=== PATIENT | female | born 1935 | race Caucasian/White ===

== ENCOUNTER 2017-07-26 00:30 | Inpatient (IN) | payer MEDICARE, MEDICAID ==
[2017-07-26 01:36] LABS: #Eosinphils 0.1 thou/uL (0.0-0.7); #Monocytes 0.9 thou/uL (0.11-0.59); #Neutrophils 13.9 thou/uL (1.40-6.50); %Basophils 0.1 % (0.0-1.0); %Eosinophils 0.4 % (0.0-10.0); %Lymphocytes 6.4 % (21.0-51.0); %Monocytes 5.7 % (0.0-10.0); %Neutrophils 87.5 % (42.0-75.0); Hemoglobin 8.4 g/dL (12.0-16.0); Mean Corpuscular HGB CONC 30.1 g/dL (32.0-36.0); Mean Corpuscular Hemoglobin 26.8 pg (27.0-31.0); Mean Corpuscular Volume 89.3 fl (81.0-99.0); Mean Platelet Volume 6.5 fL (7.4-10.4); Platelet Count 398 thou/uL (130-400); RBC Distribution Width 14.4 % (11.5-14.5); Red Blood Cell (RBC) Count 3.13 mill/uL (4.20-5.40); White Blood Cell (WBC) Count 15.9 thou/uL (4.8-10.8)
[2017-07-26 01:53] LABS: ALT (SGPT) 10 U/L (8-55); AST (SGOT) 14 U/L (5-34); Alkaline Phosphatase 69 U/L (40-150); Anion Gap 13 mmol/L (10-20); BUN (Urea Nitrogen) 18 mg/dL (9.8-20.1); Bilirubin, Total Less than 0.2 mg/dL (0.2-1.2); Calc. Creatinine Clearance 0 mL/min (70-130); Calcium 8.6 mg/dL (7.8-10.44); Carbon Dioxide 29 mmol/L (23-31); Chloride 103 mmol/L (98-107); Estimated GFR-MDRD 67; Globulin 3.3 g/dL (2.4-3.5); Glucose 130 mg/dL (83-110); Potassium 4.2 mmol/L (3.5-5.1); Protein, Total 6.3 g/dL (6.0-8.3); Sodium 141 mmol/L (136-145)
[2017-07-26] MEDS ORDERED: Bisacodyl 5 MG TAB PO PRN (03:49)
[2017-07-26] MEDS ORDERED: cefTRIAXone\\ROCEPHIN 1 GM in Sodium Chloride 0.9% 100 ML IVPB SCH (04:00)
[2017-07-26] MEDS ORDERED: cefTRIAXone\\ROCEPHIN 1 GM, Syringe 0.4 ML in Sterile Water 9.6 ML SLOW IVP SCH (04:00)
--- NOTE | 2017-07-26 05:01 | HP ---
PRIMARY CARE PHYSICIAN: Dr. Mariah Reyes. CHIEF COMPLAINT: Cough. HISTORY OF PRESENT ILLNESS: Ms. Douglas is a pleasant 81-year-old lady who was seen at [facility] on 07/26/2017 following transfer from emergency room at [place]. She is a resident of [facility]. She reports that 2 days ago, she started having c ough. She reports that the cough is productive of sputum. She does not recall the color of sputum. She denies any chest pain or shortness of breath. She is unsure if she had any fevers. She denies any urinary symptoms. She denies any nausea, vomiting, or diarrhea. She was assessed in the emergency room at [place] and diagnosed with possible aspiration as well as urinary tract infection. She was subsequently transferred to this emergency room. REVIEW OF SYSTEMS: The following complete review of systems was negative, unless otherwise mentioned in the HPI or below: Constitutional: Weight loss or gain, sense of well-being, ability to conduct usual activities, exerc ise tolerance. Skin/Breast: Rash, itching, changes in hair growth or loss, nail changes, breast lumps, tenderness, swelling, nipple discharge. Eyes: Vision, double vision, tearing, blind spots, pain. ENT/Mouth: Headaches (location, time of onset, duration, precipitating factors), vertigo, lightheade dness, injury. Vision, double vision, tearing, blind spots, pain, nose bleeding, colds, obstruction, discharge, dental difficulties, gingival bleeding, dentures, neck stiffness, pain, tenderness, masses in thyroid or other areas. Cardiovascular: Precordial pain, substernal distress, palpitations, syncope, dyspnea on exertion, or thopnea, nocturnal paroxysmal dyspnea, edema, cyanosis, hypertension, heart murmurs, varicosities, ph lebitis, claudication. Respiratory: Pain, shortness of breath, wheezing, stridor, cough, hemoptysis, fever or night sweats. Gastrointestinal: Poor appetite, dysphagia, indigestion, abdominal pain, heartburn, eructation, naus ea, vomiting, hematemesis, jaundice, constipation, or diarrhea, abnormal stools (noah-colored, tarry, bloody, greasy, foul smelling), flatulence, hemorrhoids, recent changes in bowel habits. Genitourinary: Urgency, frequency, dysuria, nocturia, hematuria, polyuria, oliguria, unusual (or melany nge in) color of urine, stones, hesitancy, change in size of stream, dribbling, acute retention or in continence, libido, potency. Musculoskeletal: Pain, swelling, redness or heat of muscles or joints, limitation, of motion, muscul ar weakness, atrophy, cramps. Neurologic/Psychiatric: Convulsions, paralyzes, tremor, incoordination, paresthesias, difficulties w ith memory of speech, sensory or motor disturbances, or muscular coordination (ataxia, tremor), emoti onal problems, anxiety, depression, previous psychiatric care, unusual perceptions, hallucinations. Allergy/Immunologic: Skin rash, anemia, bleeding tendency, polydipsia, polyuria, intolerance to heat or cold. PAST MEDICAL HISTORY: Significant for gastroesophageal reflux disease, dyslipidemia, hypertension, u rinary tract infection, probable rheumatoid arthritis. PAST SURGICAL HISTORY: Significant for cataract surgery and hysterectomy. SOCIAL HISTORY: She denies tobacco use, alcohol use, or recreational drug use. She lives in a [facility] home. CODE STATUS: I discussed her code status. She is FULL CODE. She tells her that her sister is the s ubstitute decision maker. ALLERGIES: AMLODIPINE, CEPHALEXIN, HYDROCHLOROTHIAZIDE, IBUPROFEN, LANSOPRAZOLE, MACRODANTIN, SULFA, SULINDAC, and TRIMETHOPRIM. CURRENT MEDICATIONS: These need to be clarified. FAMILY HISTORY: Significant for heart attack in her mother. PHYSICAL EXAMINATION: GENERAL: Ms. Douglas is awake and alert, not in acute distress. VITAL SIGNS: Blood pressure is 165/87, pulse is 82. She is breathing at rate of 19 and saturating 9 7% on 2 liters of oxygen. She is afebrile. EYES: No scleral icterus. No conjunctival pallor. ENT: Moist mucosal membranes, no oropharyngeal erythema or exudates. NECK: Supple, nontender, normal range of movement, trachea is midline. RESPIRATORY: Accessory muscles of breathing are not active. Chest wall movements are symmetric bila terally. She has right basal crackles. CARDIOVASCULAR: S1 and S2 are heard, regular. LUNGS: Peripheral pulses palpable. No carotid bruit, no pericardial rub. ABDOMEN: Soft, nontender, bowel sounds heard, no hepatomegaly, no splenomegaly. NEUROLOGIC: Cranial nerves II-XII are intact. Deep tendon reflexes 2+. MUSCULOSKELETAL: Marked arthritic changes in both hands, patient is unable to open her left hand. SKIN: No rashes or subcutaneous nodules. LYMPHATIC: No cervical lymphadenopathy. PSYCHIATRIC: Normal mood, normal affect, patient is oriented to person, but not to place or time. LABORATORY DATA: Ms. Douglas's labs and investigations were reviewed. I reviewed her electrocardiog luz, which has a lot of artifact, but appears to show normal sinus rhythm, no ST changes to suggest a n acute coronary syndrome. I also reviewed her chest x-ray, which does not show any pulmonary infilt rates. She has a small right-sided pleural effusion. Laboratory investigation show leukocytosis wit h 15,900 white cells, of which 87.5% are neutrophils, normocytic anemia with hemoglobin of 8.4, annie l platelet count, normal electrolytes, normal creatinine, unremarkable liver profile except for decre ased albumin of 3.0. Urinalysis was positive for ketones, nitrite, small amount of leukocyte esteras e, and bacteria. ASSESSMENT AND PLAN: Ms. Douglas is a pleasant 81-year-old lady who was seen at [facility] on 07/26/2017. Her problem list includes: 1. Acute hypoxic respiratory failure: She had oxygen saturation of 88% on room air at [facility] likely etiology of acute hypoxic respiratory failure is aspiration. 2. Aspiration: Suspected. She will be started on ceftriaxone and metronidazole. It is possible th at her radiographic changes are not yet apparent. We will request Speech Therapy consult for swallow evaluation. 3. Urinary tract infection: Start ceftriaxone, follow urine cultures. 4. Hypertension: Monitor vital signs, titrate antihypertensives as needed. 5. Gastroesophageal reflux disease: Resume home medications once clarified. Many thanks for allowing me to participate in your patient's care. Please feel free to contact me wi th any questions or concerns. LEVEL OF RISK: High. LEVEL OF COMPLEXITY: High.
[2017-07-26] MEDS ORDERED: Acetaminophen 325 MG Suppository ONE (05:25)
[2017-07-26] MEDS ORDERED: Acetaminophen 325 MG TAB ONE (05:25)
[2017-07-26] MEDS ORDERED: Melatonin 3 MG TAB PO SCH (05:45)
--- NOTE | 2017-07-26 09:58 | PDOC.EVN ---
Event Note - Event Note Event Note: pt seen and evaluated cont current care f/u dr abel rec's
[2017-07-26] MEDS ORDERED: hydrALAZINE 20 MG/ML VIAL ONE (12:47)
[2017-07-26] MEDS: metroNIDAZOLE 500 MG in Premix Bag 1 BAG IVPB SCH ×3 (15:20→20:57)
[2017-07-27 05:14] LABS: #Lymphocytes 0.5 thou/uL (1.20-3.40); #Monocytes 0.1 thou/uL (0.11-0.59); #Neutrophils 7.4 thou/uL (1.40-6.50); %Eosinophils 0.4 % (0.0-10.0); %Lymphocytes 5.7 % (21.0-51.0); %Monocytes 0.9 % (0.0-10.0); Hemoglobin 8.9 g/dL (12.0-16.0); Mean Corpuscular HGB CONC 30.3 g/dL (32.0-36.0); Mean Corpuscular Volume 88.9 fl (81.0-99.0); Mean Platelet Volume 6.4 fL (7.4-10.4); Platelet Count 375 thou/uL (130-400); RBC Distribution Width 14.5 % (11.5-14.5); Red Blood Cell (RBC) Count 3.28 mill/uL (4.20-5.40)
[2017-07-27] MEDS: metroNIDAZOLE 500 MG in Premix Bag 1 BAG IVPB SCH ×3 (05:27→22:26)
[2017-07-27 05:32] LABS: Anion Gap 15 mmol/L (10-20); BUN (Urea Nitrogen) 12 mg/dL (9.8-20.1); Calc. Creatinine Clearance 0 mL/min (70-130); Calcium 8.5 mg/dL (7.8-10.44); Carbon Dioxide 22 mmol/L (23-31); Chloride 102 mmol/L (98-107); Estimated GFR-MDRD 89; Glucose 112 mg/dL (83-110); Potassium 3.7 mmol/L (3.5-5.1); Sodium 135 mmol/L (136-145)
--- NOTE | 2017-07-27 11:19 | RAD ---
AP VIEW CHEST: Date: 07/27/17 HISTORY: Shortness of breath. FINDINGS: Comparison made to previous exam from 07/25/17. AP view of chest demonstrates calcification of the aorta. No evidence of effusions, pneumonia, or pne umothorax seen. No acute intrathoracic abnormality is noted. Bilateral shoulder osteoarthritic change is seen. IMPRESSION: No evidence of acute intrathoracic abnormality seen. POS: [facility]
--- NOTE | 2017-07-27 13:26 | PDOC.PN ---
- Subjective Encounter Start Date: 07/27/17 Encounter Start Time: 13:23 alert but not oriented sob better dysphagia no n/v no f/c - Objective Resuscitation Status: Resuscitation Status FULL:Full Resuscitation MAR Reviewed: Yes Vital Signs & Weight: Vital Signs (12 hours) Temp Pulse Resp BP Pulse Ox 07/27/17 08:00 97.9 F 88 16 147/63 H 92 L I&O: 07/26/17 07/27/17 07/28/17 06:59 06:59 06:59 Intake Total 200 Balance 200 Result Diagrams: 07/27/17 04:16 07/27/17 04:16 Phys Exam - Physical Examination Constitutional: NAD HEENT: PERRLA Neck: no JVD Respiratory: no wheezing Cardiovascular: no significant murmur Gastrointestinal: non-tender Musculoskeletal: pulses present Neurological: moves all 4 limbs Psychiatric: A&O x 3 Dx/Plan (1) Acute respiratory failure with hypoxia Code(s): J96.01 - ACUTE RESPIRATORY FAILURE WITH HYPOXIA Status: Acute (2) Dysphagia Code(s): R13.10 - DYSPHAGIA, UNSPECIFIED Status: Acute (3) Aspiration pneumonitis Code(s): J69.0 - PNEUMONITIS DUE TO INHALATION OF FOOD AND VOMIT Status: Acute (4) HTN (hypertension) Code(s): I10 - ESSENTIAL (PRIMARY) HYPERTENSION Status: Acute (5) Dementia Code(s): F03.90 - UNSPECIFIED DEMENTIA WITHOUT BEHAVIORAL DISTURBANCE Status: Acute (6) GERD (gastroesophageal reflux disease) Code(s): K21.9 - GASTRO-ESOPHAGEAL REFLUX DISEASE WITHOUT ESOPHAGITIS Status: Acute (7) UTI (urinary tract infection) Status: Acute - Plan * mbs in am * npo for now * cont current meds * f/u urine cul
[2017-07-27] MEDS: cefTRIAXone\\ROCEPHIN 1 GM, Syringe 0.4 ML in Sterile Water 9.6 ML SLOW IVP SCH ×2 (15:19→16:00)
[2017-07-27] MEDS: Sodium Chloride 0.9% 1,000 ML IV SCH ×2 (22:26→22:28)
[2017-07-28] MEDS: metroNIDAZOLE 500 MG in Premix Bag 1 BAG IVPB SCH ×3 (05:19→21:00)
[2017-07-28 05:21] LABS: #Monocytes 0.8 thou/uL (0.11-0.59); #Neutrophils 7.6 thou/uL (1.40-6.50); %Basophils 0.1 % (0.0-1.0); %Eosinophils 0.3 % (0.0-10.0); %Lymphocytes 10.9 % (21.0-51.0); %Monocytes 8.6 % (0.0-10.0); %Neutrophils 80.1 % (42.0-75.0); Hemoglobin 8.4 g/dL (12.0-16.0); Mean Corpuscular HGB CONC 30.6 g/dL (32.0-36.0); Mean Corpuscular Hemoglobin 27.3 pg (27.0-31.0); Mean Corpuscular Volume 89.4 fl (81.0-99.0); Mean Platelet Volume 6.6 fL (7.4-10.4); Platelet Count 351 thou/uL (130-400); RBC Distribution Width 14.7 % (11.5-14.5); Red Blood Cell (RBC) Count 3.07 mill/uL (4.20-5.40); White Blood Cell (WBC) Count 9.5 thou/uL (4.8-10.8)
[2017-07-28 05:40] LABS: Anion Gap 12 mmol/L (10-20); BUN (Urea Nitrogen) 18 mg/dL (9.8-20.1); Calc. Creatinine Clearance 0 mL/min (70-130); Calcium 8.4 mg/dL (7.8-10.44); Carbon Dioxide 23 mmol/L (23-31); Chloride 105 mmol/L (98-107); Estimated GFR-MDRD 87; Glucose 70 mg/dL (83-110); Potassium 3.7 mmol/L (3.5-5.1); Sodium 136 mmol/L (136-145)
[2017-07-28] MEDS: Labetalol HCl 100 MG/20 ML VIAL SLOW IVP PRN (12:07)
[2017-07-28] MEDS: hydrALAZINE 20 MG/ML VIAL SLOW IVP PRN (13:58)
--- NOTE | 2017-07-28 16:33 | PDOC.PN ---
- Subjective Encounter Start Date: 07/28/17 Encounter Start Time: 16:32 sob better more oriented no n/v no f/c - Objective Resuscitation Status: Resuscitation Status FULL:Full Resuscitation MAR Reviewed: Yes Vital Signs & Weight: Vital Signs (12 hours) Temp Pulse Resp BP BP Pulse Ox 07/28/17 13:58 72 197/74 H 07/28/17 12:07 83 202/86 H 07/28/17 11:32 98 F 83 18 209/83 H 96 07/28/17 08:00 97.9 F 88 18 97 07/28/17 07:37 97.9 F 88 18 177/76 H 97 I&O: 07/27/17 07/28/17 07/29/17 06:59 06:59 06:59 Intake Total 200 Balance 200 Result Diagrams: 07/28/17 04:21 07/28/17 04:21 Additional Labs: Accuchecks 07/27/17 19:23 POC Glucose 94 Phys Exam - Physical Examination Constitutional: NAD HEENT: PERRLA Neck: no JVD Respiratory: no wheezing Cardiovascular: no significant murmur Gastrointestinal: non-tender Musculoskeletal: pulses present Neurological: normal sensation Psychiatric: A&O x 3 Dx/Plan (1) Acute respiratory failure with hypoxia Code(s): J96.01 - ACUTE RESPIRATORY FAILURE WITH HYPOXIA Status: Acute (2) Dysphagia Code(s): R13.10 - DYSPHAGIA, UNSPECIFIED Status: Acute (3) Aspiration pneumonitis Code(s): J69.0 - PNEUMONITIS DUE TO INHALATION OF FOOD AND VOMIT Status: Acute (4) HTN (hypertension) Code(s): I10 - ESSENTIAL (PRIMARY) HYPERTENSION Status: Acute (5) Dementia Code(s): F03.90 - UNSPECIFIED DEMENTIA WITHOUT BEHAVIORAL DISTURBANCE Status: Acute (6) GERD (gastroesophageal reflux disease) Code(s): K21.9 - GASTRO-ESOPHAGEAL REFLUX DISEASE WITHOUT ESOPHAGITIS Status: Acute (7) UTI (urinary tract infection) Status: Acute - Plan * f/u mbs * f/u palliative care rec's * continue current mx
[2017-07-28] MEDS: Acetaminophen 325 MG TAB PO PRN (20:45)
[2017-07-28] MEDS: Lisinopril 20 MG TAB PO SCH (20:45)
[2017-07-28] MEDS: Atorvastatin Calcium 20 MG TAB PO SCH (20:46)
[2017-07-28] MEDS: Carvedilol 25 MG TAB PO SCH (20:46)
[2017-07-29] MEDS: Labetalol HCl 100 MG/20 ML VIAL SLOW IVP PRN (01:52)
--- NOTE | 2017-07-29 03:18 | CON ---
DATE OF CONSULTATION: 07/28/2017 Sue Douglas is an 81-year-old female who was admitted with a diagnosis of pneumonia. She asked me why she was still here. She said she just had a cough and she wanted to eat, but was no t allowed to eat. That is the only history she would give me. She seemed quite frustrated. She was transferred here from [facility] for "possible aspiration". She denies shortness of breath at this time. She denies coughing at this time. She denies purulent sputum, orthopnea, paroxysmal nocturnal dyspnea. PAST MEDICAL HISTORY: 1. Remarkable for reflux 2. Lipid disorder. 3. Hypertension. 4. Rheumatoid arthritis based on her exam. 5. History of cataract surgery. 6. Status post hysterectomy. SOCIAL HISTORY: She is a nonsmoker, nondrinker. She does not use drugs. She lives in a alf. FAMILY HISTORY: Her sister is her only family. ALLERGIES: She reports allergies in the computer to NORVASC, CEPHALOSPORINS, HYDROCHLOROTHIAZIDE, IB UPROFEN, LANSOPRAZOLE, MACRODANTIN, SULFA AND SULDENDAC. MEDICATIONS: Medications have been reviewed. REVIEW OF SYSTEMS: Ten points otherwise negative. PHYSICAL EXAMINATION: VITAL SIGNS: Blood pressures have been between 175/80 and 209/83 today. Heart rate in the 70s-80s, respiratory rate in the teens, oximetry is 95%. HEENT: Pupils are equal. Sclerae is anicteric. NECK: Supple. LUNGS: Lungs were clear when I evaluated her earlier today. HEART: Regular rhythm. She has a grade 2/6 aortic outflow murmur. ABDOMEN: Soft and nontender. EXTREMITIES: Without asymmetry. She has some very severe upper extremity rheumatoid deformities. LABORATORY: White count 9.5, hemoglobin 8.4, platelets 351. Sodium 136, potassium 3.7, chloride 105, bicarbonate 23, BUN 18, creatinine 0.6. I reviewed her chest radiograph, I see no infiltrates that would lead me to believe that she has pneu monia. IMPRESSION: 1. Cough. Apparently this has improved. 2. Hypertension, not controlled. 3. Rheumatoid arthritis with severe rheumatoid deformities. 4. N.p.o. status, I will ask the nursing staff to see if we could get started with a feeding regimen that is similar to what she has at her alf, this will be taken care of by the Hospitalist. She actually looks clinically stable. She may have some degree of dementia, but she actually answere d questions in a fairly appropriate fashion. We will see her as needed in the future.
[2017-07-29] MEDS: metroNIDAZOLE 500 MG in Premix Bag 1 BAG IVPB SCH (05:06)
[2017-07-29] MEDS: hydrALAZINE 20 MG/ML VIAL SLOW IVP PRN ×2 (05:15→17:43)
[2017-07-29 05:27] LABS: #Eosinphils 0.1 thou/uL (0.0-0.7); #Lymphocytes 0.9 thou/uL (1.20-3.40); #Monocytes 0.6 thou/uL (0.11-0.59); #Neutrophils 7.3 thou/uL (1.40-6.50); %Eosinophils 0.6 % (0.0-10.0); %Monocytes 6.9 % (0.0-10.0); %Neutrophils 82.6 % (42.0-75.0); Mean Corpuscular HGB CONC 30.5 g/dL (32.0-36.0); Mean Corpuscular Hemoglobin 26.9 pg (27.0-31.0); Mean Corpuscular Volume 88.4 fl (81.0-99.0); Mean Platelet Volume 6.3 fL (7.4-10.4); Platelet Count 355 thou/uL (130-400); RBC Distribution Width 14.5 % (11.5-14.5); Red Blood Cell (RBC) Count 3.33 mill/uL (4.20-5.40); White Blood Cell (WBC) Count 8.9 thou/uL (4.8-10.8)
[2017-07-29 05:44] LABS: Anion Gap 16 mmol/L (10-20); BUN (Urea Nitrogen) 13 mg/dL (9.8-20.1); Calc. Creatinine Clearance 0 mL/min (70-130); Calcium 8.4 mg/dL (7.8-10.44); Carbon Dioxide 23 mmol/L (23-31); Chloride 99 mmol/L (98-107); Estimated GFR-MDRD Greater than 90; Glucose 60 mg/dL (83-110); Potassium 3.2 mmol/L (3.5-5.1); Sodium 135 mmol/L (136-145)
[2017-07-29] MEDS: Lisinopril 20 MG TAB PO SCH ×2 (08:30→21:29)
[2017-07-29] MEDS: Acetaminophen 325 MG TAB PO PRN (08:31)
[2017-07-29] MEDS: Carvedilol 25 MG TAB PO SCH ×2 (08:31→21:30)
--- NOTE | 2017-07-29 11:13 | RAD ---
MODIFIED BARIUM SWALLOW: Date: 07/29/17 HISTORY: Dysphagia. RADIATION DOSIMETRY: 1.6 minutes of fluoroscopy and DAP of 0.91 Gy*cm^2. FINDINGS: The various consistencies were given to the patient, including thin, nectar thick, pudding and barium , as well as crackers and barium. The patient ingested all materials without difficulty, without evid ence of aspiration. There was some minimal premature spillage, but no evidence of aspiration seen. On ce initiated, the swallowing proceeded without difficulty. IMPRESSION: Normal modified barium swallow. POS: [facility]
[2017-07-29] MEDS ORDERED: Potassium Chloride 20 MEQ TAB PO SCH (12:00)
--- NOTE | 2017-07-29 13:03 | PDOC.PN ---
- Subjective Encounter Start Date: 07/29/17 Encounter Start Time: 13:01 pt did well in mbs. speech has recommended diet. pt has poor appetite. has not eaten much no n/v no cp no f/c no sob - Objective Resuscitation Status: Resuscitation Status FULL:Full Resuscitation MAR Reviewed: Yes Vital Signs & Weight: Vital Signs (12 hours) Temp Pulse Resp BP BP Pulse Ox 07/29/17 08:30 177/74 H 07/29/17 08:00 98.0 F 79 20 177/74 H 95 07/29/17 06:13 97.5 F L 70 20 164/66 H 95 07/29/17 05:15 70 189/70 H 07/29/17 05:00 97.7 F 79 18 189/70 H 95 07/29/17 01:57 70 178/90 H 07/29/17 01:52 79 189/78 H Result Diagrams: 07/29/17 04:30 07/29/17 04:30 Phys Exam - Physical Examination Constitutional: NAD HEENT: PERRLA Neck: no JVD Respiratory: no wheezing Cardiovascular: no significant murmur Gastrointestinal: non-tender Musculoskeletal: pulses present rheumatoid deformity in hands seen Neurological: moves all 4 limbs Psychiatric: normal affect Dx/Plan (1) Acute respiratory failure with hypoxia Code(s): J96.01 - ACUTE RESPIRATORY FAILURE WITH HYPOXIA Status: Acute (2) Dysphagia Code(s): R13.10 - DYSPHAGIA, UNSPECIFIED Status: Acute Comment: mbs normal (3) Aspiration pneumonitis Code(s): J69.0 - PNEUMONITIS DUE TO INHALATION OF FOOD AND VOMIT Status: Acute (4) HTN (hypertension) Code(s): I10 - ESSENTIAL (PRIMARY) HYPERTENSION Status: Acute (5) Dementia Code(s): F03.90 - UNSPECIFIED DEMENTIA WITHOUT BEHAVIORAL DISTURBANCE Status: Acute (6) GERD (gastroesophageal reflux disease) Code(s): K21.9 - GASTRO-ESOPHAGEAL REFLUX DISEASE WITHOUT ESOPHAGITIS Status: Acute (7) UTI (urinary tract infection) Status: Resolved Comment: culture negative (8) Physical deconditioning Code(s): R53.81 - OTHER MALAISE Status: Acute (9) Hypokalemia Code(s): E87.6 - HYPOKALEMIA Status: Acute - Plan * pt has to be seen by palliative care for goals of care. very poor appetite. physical deconditioned. * continue pt/ot * encourage po intake * cont current mx * replace potassium * start megace
[2017-07-29] MEDS: Atorvastatin Calcium 20 MG TAB PO SCH (21:30)
[2017-07-30 06:27] LABS: Albumin 2.9 g/dL (3.4-4.8); Anion Gap 16 mmol/L (10-20); BUN (Urea Nitrogen) 13 mg/dL (9.8-20.1); BUN/Creatinine Ratio 20.63; Calc. Creatinine Clearance 0 mL/min (70-130); Calcium 8.6 mg/dL (7.8-10.44); Carbon Dioxide 23 mmol/L (23-31); Chloride 99 mmol/L (98-107); Estimated GFR-MDRD 90; Glucose 86 mg/dL (83-110); Phosphorus 2.1 mg/dL (2.3-4.7); Potassium 3.7 mmol/L (3.5-5.1); Sodium 134 mmol/L (136-145)
[2017-07-30 08:04] VITALS: TEMP 98.1
[2017-07-30] MEDS: Carvedilol 25 MG TAB PO SCH (08:26)
[2017-07-30] MEDS: Lisinopril 20 MG TAB PO SCH (08:26)
[2017-07-30] MEDS ORDERED: Megestrol Acetate 800 MG/20 ML UDCUP PO SCH (09:00)
[2017-07-30] MEDS ORDERED: Albuterol Sulfate 2.5 mg/3 ml Neb NEB PRN (11:32)
[2017-07-30] MEDS ORDERED: Artificial Tears 18 DROP/0.9 ML EA EYE PRN (11:32)
[2017-07-30] MEDS ORDERED: cloNIDine 0.2 MG TAB PO PRN (11:32)
--- NOTE | 2017-07-30 11:38 | PDOC.PN ---
- Subjective Encounter Start Date: 07/30/17 Encounter Start Time: 13:30 Subjective: No complaints. Off oxygen. No coughing with lunch. - Objective Resuscitation Status: Resuscitation Status FULL:Full Resuscitation MAR Reviewed: Yes Vital Signs & Weight: Vital Signs (12 hours) Temp Pulse Resp BP BP Pulse Ox 07/30/17 08:26 172/75 H 07/30/17 08:00 98.1 F 79 14 172/75 H 95 07/30/17 04:31 98.0 F 81 18 175/76 H 93 L 07/30/17 01:47 98.2 F 80 18 142/64 H 92 L Result Diagrams: 07/29/17 04:30 07/30/17 05:21 Phys Exam - Physical Examination Constitutional: NAD HEENT: moist MMs Respiratory: no wheezing, no rales, no rhonchi Cardiovascular: RRR, no significant murmur, no rub Gastrointestinal: soft, non-tender, positive bowel sounds Neurological: non-focal, moves all 4 limbs Psychiatric: normal affect Dx/Plan (1) Acute respiratory failure with hypoxia Code(s): J96.01 - ACUTE RESPIRATORY FAILURE WITH HYPOXIA Status: Resolved (2) Dementia Code(s): F03.90 - UNSPECIFIED DEMENTIA WITHOUT BEHAVIORAL DISTURBANCE Status: Chronic (3) Dysphagia Code(s): R13.10 - DYSPHAGIA, UNSPECIFIED Status: Acute Comment: mbs normal (4) GERD (gastroesophageal reflux disease) Code(s): K21.9 - GASTRO-ESOPHAGEAL REFLUX DISEASE WITHOUT ESOPHAGITIS Status: Chronic (5) HTN (hypertension) Code(s): I10 - ESSENTIAL (PRIMARY) HYPERTENSION Status: Chronic (6) Hypomagnesemia Code(s): E83.42 - HYPOMAGNESEMIA Status: Acute Comment: Start oral replacement (7) Hypokalemia Code(s): E87.6 - HYPOKALEMIA Status: Resolved Comment: Resuming home replacement - Plan cont current plan of care, PT/OT, speech therapy Patient did well with MBS. UCx neg for UTI. Repeat CXR neg for pneumonia. -: Likely URI now resolved as souce of cough vs. aspiration pneumonitis -: without subsequent infection. * . - Discharge Day Encounter end time: 14:00
[2017-07-30] MEDS ORDERED: hydrALAZINE 25 MG TAB PO SCH (15:00)
[2017-07-30] MEDS ORDERED: Metoclopramide HCl 10 MG TAB PO SCH (15:00)
[2017-07-30 15:43] VITALS: BP 172/62
--- NOTE | 2017-07-30 19:40 | DIS ---
PRIMARY CARE PHYSICIAN: Dr. Fabio Bedolla. DIAGNOSES ON ADMISSION: 1. Acute hypoxic respiratory failure. 2. Suspected aspiration. 3. Urinary tract infection. 4. Hypertension. 5. Gastroesophageal reflux disease. DISCHARGE DIAGNOSES: 1. Acute respiratory failure with hypoxia, resolved, likely upper respiratory infection versus aspir ation pneumonitis. 2. Pyuria without bacterial infection. 3. Dysphagia, normal modified barium swallow. 4. Dementia. 5. Gastroesophageal reflux disease. 6. Hypertension. 7. Hypomagnesemia. 8. Hypokalemia, resolved. PROCEDURES: Modified barium swallow showing a normal exam without evidence of aspiration. CONSULTATION: Pulmonology, Dr. Delatorre. PERTINENT LABORATORY DATA: White blood cell count 15,000 on admission down to 8 after that. Potassi um did drop to 3.2 but back to 3.7 at discharge. Magnesium was low at 1.5. SUMMARY OF HOSPITAL COURSE: This is an 81-year-old white female shelter resident with rheumatoi d arthritis and bad debilitation along with early dementia. She presented to [facility] with cough and hypoxia into the 80s on room air. Chest x-ray was negative at that time. She did griffin ve an elevated white count and dirty urine, so she was put on antibiotics and transferred. There was some concern about possible aspiration pneumonitis; however, repeat chest x-ray was negative for any evidence of developing pneumonia and her white blood cell count went down, never returned back up. Dr. Delatorre was consulted and determined she did not have pneumonia. Her urine culture came back negat mireya, so her antibiotics were discontinued. She was slowly weaned off of oxygen. During hospitalizat [facility], there was some concern about possible dysphagia causing aspiration, so speech therapy was evalua ting her. She did have some coughing on exam, so they did a modified barium swallow which was normal . She was put on a pureed diet and eventually with thin liquids and without problems and was doing w ell the day of discharge. DISCHARGE PLAN: Discharge back to [facility]. ACTIVITIES: As tolerated. DIET: Healthy heart, low sodium diet with pureed texture solids and thin liquids by cup or straws. Meds crushed and give him with pureed. Nebulizer treatments as needed. DISCHARGE MEDICATIONS: The patient to resume all of her home medications. 1. Metoclopramide 10 mg 3 times a day. 2. Clonidine 0.2 mg every 4 hours as needed for hypertension. 3. Hydralazine 1 tablet 3 times a day. 4. Ranitidine 150 mg twice a day. 5. Potassium chloride 20 mEq twice a day. 6. Lisinopril 20 mg twice a day. 7. Carvedilol 25 mg twice a day. 8. MiraLax 17 grams daily. 9. Multivitamin liquid 15 mL daily. 10. Clomipramine 150 mg at night. 11. Melatonin 3 mg at night. 12. Ferrous sulfate 300 mg each morning. 13. Artificial Tears as needed. 14. Furosemide 20 mg daily. 15. Albuterol sulfate nebs every 6 hours as needed for coughing, wheezing, shortness of breath. 16. Simvastatin 40 mg daily. 17. Aspirin 81 mg daily. 18. Megace 800 mg daily. 19. Magnesium oxide 400 mg daily, these last 2 was a new prescription.
[2017-07-30] MEDS ORDERED: CLOMIPRAMINE HCL 50 MG PO SCH (21:00)
[2017-07-30] MEDS ORDERED: Melatonin 3 MG TAB PO SCH (21:00)
[2017-07-30] MEDS ORDERED: Famotidine 20 MG TAB PO SCH (21:00)
[2017-07-31] MEDS ORDERED: Aspirin 81 mg Enteric Coated Tablet PO SCH (09:00)
[2017-07-31] MEDS ORDERED: Magnesium Oxide 400 MG TAB PO SCH (09:00)
[2017-07-31] MEDS ORDERED: Polyethylene Glycol 3350 17 GM Packet PO SCH (09:00)
[2017-07-31] MEDS ORDERED: Multivitamin W/ Minerals 1 TAB PO SCH (09:00)
[2017-07-31] MEDS ORDERED: Furosemide 20 MG TAB PO SCH (09:00)
--- NOTE | 2017-08-01 12:28 | PQF ---
Pt was discharged by Dr. Tadeo. Pls direct this query to him. Thanks. VIVEK ALMEIDA, TODD [id number] CLINICAL DOCUMENTATION CLARIFICATION FORM: POST DISCHARGE Addendum to original discharge summary date: ____ Late entry note date: __ DATE: 08/01/17 ATTN: Dr. Bocanegra Please exercise your independent, professional judgment in responding to the clarification form. Clinical indicators are provided on the bottom of this form for your review Please check appropriate box(s): [ ] Sepsis due to: (Pna, UTI, gangrenous gall bladder, etc.) Due to: [ ] Device (please specify) [ ] Implant [ ] Graft [ ] Infusion [ ] SIRS due to non-infectious process (please specify etiology) [ ] with organ dysfunction [ ] without organ dysfunction [ ] Severe sepsis with acute organ dysfunction of: (Examples: respiratory failure, encephalopathy, acute kidney failure, other) [ ] Localized infection without sepsis [ ] Other diagnosis [ ] Unable to determine In addition, please specify: Present on Admission (POA): [ ] Yes [ ] No [ ] Unable to determine CLINICAL INDICATORS - SIGNS / SYMPTOMS / LABS ER notes document that patient meets Sepsis criteria Fever or hypothermia (<96.8 F/36 C or > 100.4 F/38C) Respiratory rate >22/min, Hypoxemia, RISK FACTORS Aspiration pneumonitis URI Advancing Age TREATMENTS: Initiation Sepsis Protocol ICU Daily CBC Blood/sputum/wound cultures MTDD
--- NOTE | 2017-08-10 14:32 | PQF ---
VIVEK ALMEIDA, AGUILAR FALL MD [id number] CLINICAL DOCUMENTATION CLARIFICATION FORM: POST DISCHARGE Addendum to original discharge summary date: ____ Late entry note date: __ DATE: 08/10/16 ATTN: Dr. Tadeo Please exercise your independent, professional judgment in responding to the clarification form. Clinical indicators are provided on the bottom of this form for your review Please check appropriate box(s): [ ] Sepsis due to: (Pna, UTI, gangrenous gall bladder, etc.) Due to: [ ] Device (please specify) [ ] Implant [ ] Graft [ ] Infusion [ ] SIRS due to non-infectious process (please specify etiology) [ ] with organ dysfunction [ ] without organ dysfunction [ ] Severe sepsis with acute organ dysfunction of: (Examples: respiratory failure, encephalopathy, acute kidney failure, other) [ X ] Localized infection without sepsis [ ] Other diagnosis [ ] Unable to determine In addition, please specify: Present on Admission (POA): [ X ] Yes [ ] No [ ] Unable to determine For continuity of documentation, please document condition throughout progress notes and discharge summary. Thank You. CLINICAL INDICATORS - SIGNS / SYMPTOMS / LABS ER notes document that patient meets sepsis criteria Fever or hypothermia (<96.8 F/36 C or > 100.4 F/38C) Respiratory rate >22/min, Hypoxemia, RISK FACTORS Aspiration pneumonitis URI Advancing Age TREATMENTS: Initiation Sepsis Protocol ICU MTDD
== END 2017-07-30 17:07 | DRG 177 ==
LOC: ERS 00:30 → ERHOLD 02:12 → T4-B 13:33
PROVIDERS: ADMIT Internal Medicine; ATTEND Internal Medicine
DX: J69.0 Pneumonitis due to inhalation of food and vomit (principal); J96.01 Acute respiratory failure with hypoxia; N39.0 Urinary tract infection, site not specified; F03.90 Unspecified dementia, unspecified severity, without behavioral disturbance, psychotic disturbance, mood disturbance, and anxiety; R13.10 Dysphagia, unspecified; E83.42 Hypomagnesemia; J06.9 Acute upper respiratory infection, unspecified; M06.9 Rheumatoid arthritis, unspecified; I10 Essential (primary) hypertension; K21.9 Gastro-esophageal reflux disease without esophagitis; E87.6 Hypokalemia
CPT/HCPCS: 36415; 36416; 71010; 74230; 80048; 80053; 80069; 83605; 83735; 83880; 85025; 87040; 87086; 93005; 96361; 96365; 96366; 96367; 96375; A4216; A4353; G8978-GP-CN; G8979-GP-CM; G8996-GN-CL; G8996-GN-CM; G8997-GN-CK; G8997-GN-CL; J0360; J0696; J1956; J2920; J3370

== ENCOUNTER 2017-09-18 22:47 | Emergency (ER) | payer MEDICARE, MEDICAID ==
--- NOTE | 2017-09-18 23:14 | RAD ---
PORTABLE AP CHEST X-RAY 09/18/17 HISTORY: Dyspnea. COMPARISON: 07/27/17. FINDINGS: The cardiac silhouette is magnified by projection but at the upper limits of normal in size. Pulmonar y vasculature is within normal limits. Mild chronic lung changes are again seen. No focal consolidati on is present. Suggestion of slight blunting of the right lateral costophrenic angle which may repres ent a tiny right pleural effusion. Mild chronic lung changes are present. Bilateral glenohumeral oste oarthropathy is seen with prominent osseous density adjacent to the medial aspect of the left proxima l humerus which may represent a prominent osteophyte. Vascular calcifications is seen in the thoracic aorta. No other interval change. IMPRESSION: 1. Tiny right pleural effusion. 2. Chronic lung changes. POS: [facility]
== END 2017-09-19 00:44 ==
LOC: ERS 22:47
DX: R09.02 Hypoxemia (principal); K21.9 Gastro-esophageal reflux disease without esophagitis; E78.5 Hyperlipidemia, unspecified; I10 Essential (primary) hypertension
CPT/HCPCS: 71045; 99284

== ENCOUNTER 2017-10-26 21:23 | Inpatient (IN) | payer MEDICARE, MEDICAID ==
[2017-10-26 22:33] LABS: #Eosinphils 0.2 thou/uL (0.0-0.7); #Lymphocytes 1.1 thou/uL (1.20-3.40); #Monocytes 0.7 thou/uL (0.11-0.59); #Neutrophils 11.5 thou/uL (1.40-6.50); %Basophils 0.3 % (0.0-1.0); %Eosinophils 1.2 % (0.0-10.0); %Lymphocytes 7.9 % (21.0-51.0); %Monocytes 5.4 % (0.0-10.0); %Neutrophils 85.2 % (42.0-75.0); Hemoglobin 8.7 g/dL (12.0-16.0); Mean Corpuscular Hemoglobin 26.6 pg (27.0-31.0); Mean Corpuscular Volume 85.9 fl (81.0-99.0); Mean Platelet Volume 6.8 fL (7.4-10.4); Platelet Count 334 thou/uL (130-400); RBC Distribution Width 14.4 % (11.5-14.5); Red Blood Cell (RBC) Count 3.25 mill/uL (4.20-5.40); White Blood Cell (WBC) Count 13.5 thou/uL (4.8-10.8)
--- NOTE | 2017-10-26 22:53 | RAD ---
PORTABLE AP CHEST X-RAY] 10/26/17 HISTORY: Cough and respiratory distress. COMPARISON: 09/23/17. FINDINGS: The patient is rotated to the left accentuating the cardiac silhouette and mediastinal structures. Mi ld chronic lung changes are seen. There is suggestion of increased density at the lateral left lung b ase probably related to overlying soft tissue density. A similar finding is seen on the prior exam. N o pleural effusion or new area of consolidation is seen. Fracture deformity of the left proximal mayank flor is present. Vascular calcifications seen in the thoracic aorta. IMPRESSION: Mild chronic lung changes without evidence of an acute cardiopulmonary process. POS: [facility]
[2017-10-26 22:55] LABS: ALT (SGPT) 29 U/L (8-55); AST (SGOT) 15 U/L (5-34); Albumin 3.4 g/dL (3.4-4.8); Alkaline Phosphatase 57 U/L (40-150); Anion Gap 11 mmol/L (10-20); BUN (Urea Nitrogen) 22 mg/dL (9.8-20.1); Bilirubin, Total 0.2 mg/dL (0.2-1.2); Calc. Creatinine Clearance 0 mL/min (70-130); Calcium 8.4 mg/dL (7.8-10.44); Carbon Dioxide 26 mmol/L (23-31); Chloride 104 mmol/L (98-107); Estimated GFR-MDRD 65; Glucose 121 mg/dL (83-110); Lipase 54 U/L (8-78); Potassium 4.2 mmol/L (3.5-5.1); Protein, Total 6.4 g/dL (6.0-8.3); Sodium 137 mmol/L (136-145)
[2017-10-26 22:59] LABS: CKMB 1.2 ng/mL (0-6.6); Troponin I Less than 0.010 ng/mL (< 0.028)
[2017-10-26 23:08] LABS: Bilirubin Negative (Negative); Blood, Urine Negative (Negative); Clarity CLOUDY (Clear); Glucose, Urine (Dipstick) Negative (Negative); Leukocyte Large (Negative); Nitrite Positive (Negative); Protein, Urine (Dipstick) Negative (Neg-Trace); Specific Gravity, Urine 1.022 (1.002-1.036)
[2017-10-26 23:09] LABS: Bacteria/HPF 4+ HPF (None Seen); Hyaline Casts/LPF 4-6 HYALINE CAST LPF (0-3 Hyaline); Pathc Cast-AUWi Flag 0.72 (0-2.49); RBC/HPF 0-3 HPF (0-3); Squamous Epithelial None Seen HPF (0-3)
[2017-10-26 23:12] LABS: Base Excess-Venous 0.8 mmol/L (0 (+/- 2.5)); Bicarbonate (HCO3v) 25.6 mmol/L (1.0-85.0); Calcium, Ionized 1.04 mmol/L (1.12-1.32); Hemoglobin - Calc 9.4 g/dL (12.0-18.0); T. Carbon Dioxide 26.9 mmol/L (1.0-85.0); pH (Venous) 7.405 (7.35-7.45); vO2 Saturation-calc 84.4 % (94-98)
--- NOTE | 2017-10-26 23:31 | CT ---
NONCONTRAST CT HEAD: 10/26/17 HISTORY: Patient found down and diaphoretic. Patient vomited. Altered mental status. FINDINGS: This exam was performed helically secondary to patient motion. There is low density area seen within the right basal ganglia extending into the right periventricula r white matter most consistent with remote infarction. There is no evidence of an acute cortical infa rction, hemorrhage, mass effect or midline shift. There is diffuse cerebral and cerebellar volume los s. The ventricular system is normal in size, shape and position for the degree of sulcal atrophy. The visualized paranasal sinuses and mastoid air cells are clear. IMPRESSION: No acute intracranial abnormalities demonstrated. POS: [facility]
[2017-10-27 02:33] VITALS: BMI 22.7
[2017-10-27] MEDS: Sodium Chloride 0.9% 1,000 ML IV SCH ×3 (02:49→18:24)
[2017-10-27] MEDS: cefTRIAXone\\ROCEPHIN 1 GM in Syringe 10 ML SLOW IVP SCH (02:49)
[2017-10-27 04:19] LABS: #Eosinphils 0.1 thou/uL (0.0-0.7); #Lymphocytes 1.1 thou/uL (1.20-3.40); #Monocytes 1.1 thou/uL (0.11-0.59); #Neutrophils 11.7 thou/uL (1.40-6.50); %Basophils 0.1 % (0.0-1.0); %Eosinophils 0.6 % (0.0-10.0); %Lymphocytes 7.6 % (21.0-51.0); %Monocytes 7.7 % (0.0-10.0); Hemoglobin 8.2 g/dL (12.0-16.0); Mean Corpuscular HGB CONC 31.2 g/dL (32.0-36.0); Mean Corpuscular Hemoglobin 26.5 pg (27.0-31.0); Mean Corpuscular Volume 85.1 fl (81.0-99.0); Mean Platelet Volume 7.2 fL (7.4-10.4); Platelet Count 314 thou/uL (130-400); RBC Distribution Width 14.4 % (11.5-14.5); Red Blood Cell (RBC) Count 3.08 mill/uL (4.20-5.40); White Blood Cell (WBC) Count 13.9 thou/uL (4.8-10.8)
[2017-10-27 04:32] LABS: Anion Gap 13 mmol/L (10-20); BUN (Urea Nitrogen) 19 mg/dL (9.8-20.1); Calc. Creatinine Clearance 52 mL/min (70-130); Calcium 8.1 mg/dL (7.8-10.44); Carbon Dioxide 23 mmol/L (23-31); Chloride 105 mmol/L (98-107); Estimated GFR-MDRD 73; Glucose 82 mg/dL (83-110); Phosphorus 3.2 mg/dL (2.3-4.7); Potassium 4.1 mmol/L (3.5-5.1); Sodium 137 mmol/L (136-145)
--- NOTE | 2017-10-27 07:15 | HP ---
PRIMARY CARE PHYSICIAN: Dr. Amparo Montana. CHIEF COMPLAINT: Altered mental status. HISTORY OF PRESENT ILLNESS: The patient is an 82-year-old female with past medical history of subhash ia, reflux and hypertension, who presented to the hospital with complaints of possible aspiration pne umonia and shortness of breath. Again, the patient is unable to vocalize her complaints, everything is from documentation. Per documentation, the patient had emesis x1, was found down and had suctione d and per [place] [facility] had suctioned significant amount of fluid from her oropharynx. The lopez ent also was found to have low saturations and initially was put on a CPAP per EMS, which did not las t very long and then she was put on a nonrebreather. The patient then was transferred to [facility] for further evaluation. The patient at baseline, is oriented only x1. The patient normally does n ot use oxygen at the [place] [facility]. She does have a history of UTIs in the past. PAST MEDICAL HISTORY: Again, everything is from the documentation. Per documentation, history of hy perlipidemia, high cholesterol, also history of UTIs, history of reflux, history of hypertension. PAST SURGICAL HISTORY: The patient had cataract surgery and hysterectomy. PSYCHIATRIC HISTORY: Appears to be bipolar. SOCIAL HISTORY: She lives in a [place] [facility]. ALLERGIES: Significant to AMLODIPINE, KEFLEX, HYDROCHLOROTHIAZIDE, IBUPROFEN, MACRODANTIN, SULFA, LA NSOPRAZOLE, SULINDAC and TRIMETHOPRIM. CURRENT MEDICATIONS: This is again per the list, she takes aspirin 81 mg daily, carvedilol 25 mg p.o . b.i.d., clonidine 0.2 mg q.4 hours p.r.n., ferrous sulfate 325 p.o. daily, DuoNebs 3 mL neb q.i.d. p.r.n., clomipramine 200 mg p.o. at bedtime and Artificial Tears 1-2 drops as needed. REVIEW OF SYSTEMS: Unable to obtain. PHYSICAL EXAMINATION: VITAL SIGNS: Temperature 98.2. She is currently on a Ventimask with 8 liters oxygen, heart rate is 92, blood pressure is 157/63. She is 100% on the Ventimask at 8 liters. GENERAL: She is awake, alert, and oriented x1. CARDIOVASCULAR: S1, S2 present. Mild systolic murmur noted in her right and left sternal border. RESPIRATORY: No rhonchi or wheezes noted. Clear to auscultation. ABDOMEN: Soft, nontender. Bowel sounds are present x2. EXTREMITIES: No edema noted. LABORATORY DATA AND IMAGING: X-ray, she does have some increased density in the lateral left lung ba ses, but no other acute things are noted. No pleural effusion or new area of consolidation is seen. Brain CT did not indicate any acute process. Her WBCs are 13.9 with a hemoglobin of 8.2, which is a t her baseline. Hematocrit of 26.2 with platelets of 314 and she had no bands. Chemistry: Sodium o f 140, potassium of 4.1, creatinine is 0.76. Troponins negative first set. Urine is positive for ni trites and large leukocyte esterase. ASSESSMENT AND PLAN: The patient is an 82-year-old female, who presents to the hospital with possibl e aspiration pneumonia. 1. Possible aspiration pneumonitis. The patient did have 1 bouts of emesis and desaturated, could b e possibly pneumonitis since no significant changes on her x-ray is noted. However, we will cover th e patient on broad spectrum antibiotics for now. We will start the patient on some DuoNebs. We will hold off on steroids right now. May consider steroids if she continues to have significant amount o f wheezing; however, on my exam, she was pretty clear. 2. Urinary tract infection. We will start the patient on ceftriaxone. Since last time her culture did indicate E. coli, which was sensitive to ceftriaxone and was resistant to levofloxacin. 3. Code status. Given the patient's significant medical problems, we will consult palliative care. 4. Acute hypoxic respiratory failure, most likely secondary to aspiration pneumonitis. The patient currently on a Ventimask. Continue to titrate it down and continue to monitor. 5. We will also get a swallow evaluation on this patient. 6. Deep venous thrombosis prophylaxis. The patient is on subcu heparin.
[2017-10-27] MEDS ORDERED: Heparin 5,000 UNITS/ML VIAL SC SCH (09:00)
[2017-10-27] MEDS ORDERED: Prevnar 13-Val Conj/PF 0.5 ML SYRINGE IM ONE (09:00)
[2017-10-27] MEDS ORDERED: Aspirin 81 mg Enteric Coated Tablet PO SCH (09:45)
[2017-10-27] MEDS ORDERED: Carvedilol 25 MG TAB PO SCH (09:45)
[2017-10-27] MEDS: cloNIDine 0.1 MG TAB PO PRN ×2 (12:53→17:47)
--- NOTE | 2017-10-27 14:21 | CON ---
DATE OF CONSULTATION: 10/27/2017 CONSULTING PHYSICIAN: Kimberley San MD REASON FOR CONSULTATION: Sepsis. HISTORY OF PRESENT ILLNESS: It is difficult to obtain history from the patient because she is extrem berto demented. What I have is obtained from reading the history and physical and what was in previous notes from other hospitalizations. She is an 82-year-old female with extensive dementia who presented to the hospital with shortness of breath and hypoxemia. She was initially on CPAP by EMS then 100% nonrebreather and has been subseque ntly weaned to 3 liters nasal cannula. The patient can tell me her name, but cannot tell me where sh e is or what the date is. She did not voice any complaints. She is currently being treated for urin yared tract infection. She is not hypotensive and her hypoxemia has largely resolved. PAST MEDICAL HISTORY: 1. Dementia. 2. Hyperlipidemia. 3. Urinary tract infection. 4. Gastroesophageal reflux. 5. Hypertension. PAST SURGICAL HISTORY: Cataract surgery, hysterectomy. PSYCHIATRIC HISTORY: Apparently has bipolar. SOCIAL HISTORY: Lives in a [facility]. I am not sure about alcohol or tobacco use in the past. ALLERGIES: AMLODIPINE, KEFLEX, HYDROCHLOROTHIAZIDE, IBUPROFEN, MACRODANTIN, SULFA, LANSOPRAZOLE, SUL INDAC and TRIMETHOPRIM. MEDICATIONS PRIOR TO ADMISSION: Aspirin 81 mg daily, carvedilol 25 mg twice daily, clonidine 0.2 mg as needed every 4 hours, iron sulfate 325 mg daily, DuoNeb every 4 hours as needed, clomipramine 200 mg at night, and Artificial Tears as needed. REVIEW OF SYSTEMS: A 12 point review of systems cannot be obtained secondary to patient's altered me ntal status and dementia. PHYSICAL EXAMINATION: VITAL SIGNS: Temperature 98.2, pulse 92, blood pressure 115/83, O2 sats 100% on 3 liters. GENERAL: She is awake and does not appear to be in distress. HEENT: Pupils are reactive. Oropharynx dry. NECK: No JVD. LUNGS: Clear without wheezing or rhonchi. CARDIAC: S1 and S2 regular with 2/6 systolic murmur at the left sternal border. ABDOMEN: Soft, nontender, no hepatosplenomegaly. EXTREMITIES: No clubbing, cyanosis or edema. She has severe muscle wasting. She moves all 4 extrem ities without difficulty. No obvious skin lesions. LABORATORY AND X-RAY FINDINGS: White blood cell count 13.8, hemoglobin 8.2, hematocrit 26.2, platele t count 314. Sodium 137, potassium 4.1, chloride 105, CO2 of 23, BUN 19, creatinine 0.7, glucose 82. Urinalysis showed too numerous to count white blood cells. Chest x-ray showed no acute mass, effus ion or infiltrate. ASSESSMENT: 1. Urosepsis. 2. Hypoxemia at the time of admission which was probably related to hyperdynamic state from being de hydrated and having fever. There is no overt evidence of pneumonia on the current x-ray. 3. Acute hypoxic respiratory failure. 4. Dementia. PLAN: She can be transferred out to the medical unit to continue antibiotic therapy and low flow oxy gen. Clear liquid diet will be started. Speech therapy has been consulted. Seventy minutes time was spent performing consultation at this time. Greater than 50% was spent with the patient directly or on the patient's unit.
[2017-10-27] MEDS: Carvedilol 25 MG TAB PO SCH (16:15)
[2017-10-27] MEDS: Heparin 5,000 UNITS/ML VIAL SC SCH (20:22)
--- NOTE | 2017-10-27 20:38 | PDOC.PN ---
- Subjective Encounter Start Date: 10/27/17 Encounter Start Time: 13:00 Patient seen and examined. No new complaints. No overnight events - Objective Resuscitation Status: Resuscitation Status FULL:Full Resuscitation MAR Reviewed: Yes Vital Signs & Weight: Vital Signs (12 hours) Temp Pulse Pulse Pulse Resp BP BP 10/27/17 20:00 97.8 F 10/27/17 19:09 82 19 10/27/17 17:47 215/82 H 10/27/17 16:03 86 22 H 10/27/17 16:00 97.7 F 10/27/17 13:55 80 81 164/58 H 10/27/17 12:53 181/69 H 10/27/17 12:00 99.7 F H 10/27/17 11:58 90 18 10/27/17 09:30 94 15 BP Pulse Ox 10/27/17 20:00 10/27/17 19:09 96 10/27/17 17:47 10/27/17 16:03 10/27/17 16:00 10/27/17 13:55 158/62 H 10/27/17 12:53 10/27/17 12:00 10/27/17 11:58 99 10/27/17 09:30 Weight Admit Weight 128 lb 4.944 oz Weight 128 lb 4.944 oz Most Recent Monitor Data Heart Rate from ECG 84 NIBP 164/71 NIBP BP-Mean 86 Respiration from ECG 17 SpO2 98 I&O: 10/26/17 10/27/17 10/28/17 06:59 06:59 06:59 Intake Total 252 1440 Balance 252 1440 Result Diagrams: 10/28/17 04:01 10/28/17 04:01 EKG Reviewed by me: Yes (Tele SR) Phys Exam - Physical Examination Constitutional: NAD Neck: no JVD Respiratory: no wheezing, no rales, no rhonchi, clear to auscultation bilateral Cardiovascular: RRR, no rub no heaves/pulsations Gastrointestinal: soft, non-tender, no distention, positive bowel sounds Musculoskeletal: no edema Neurological: moves all 4 limbs Dx/Plan - Plan continue antibiotics, PT/OT, speech therapy, DVT proph w/heparin, DVT proph w/ SCDs IMPRESSION: 1. Acute hypoxic respiratory failure - improved ?prob to Aspiration 2. Sepsis due to E coli UTI 3. HTN - uncontrolled 4. Toxic Metabolic encephalopathy due to UTI 5. Dementia / GERD / HLD / Swallow dys/ Dehydration. Other issues per previous notes PLAN: * Cont Atbx * Critical care input appreciated * Resume home meds including Coreg * Clonidine PRN for SBP >180 * Await CONTROLS ENGINEER eval * Transfer to Medical Review of Systems - Review of Systems Respiratory: negative: Cough, Dry, Shortness of Breath, Hemoptysis, SOB with Excertion, Pleuritic Pain, Sputum, Wheezing Cardiovascular: negative: chest pain, palpitations, orthopnea, paroxysmal nocturnal dyspnea, edema, light headedness Gastrointestinal: negative: Nausea, Vomiting, Abdominal Pain, Diarrhea, Constipation, Melena, Hematochezia - Medications/Allergies Allergies/Adverse Reactions: Allergies Allergy/AdvReac Type Severity Reaction Status Date / Time amlodipine Allergy Verified 10/27/17 03:53 cephalexin Allergy Verified 10/27/17 03:53 hydrochlorothiazide Allergy Verified 10/27/17 03:53 ibuprofen Allergy Verified 10/27/17 03:53 lansoprazole Allergy Verified 10/27/17 03:53 nitrofurantoin Allergy Verified 10/27/17 03:53 [From Macrodantin] Sulfa (Sulfonamide Allergy Verified 10/27/17 03:53 Antibiotics) sulfamethoxazole Allergy Verified 10/27/17 03:53 sulindac Allergy Verified 10/27/17 03:53 trimethoprim Allergy Verified 10/27/17 03:53 Medications: Current Medications Albuterol/Ipratropium (Duoneb) 3 ml IPPB [id number] [facility] Last Admin: 10/27/17 19:09 Dose: 3 ml Albuterol/Ipratropium (Duoneb) 3 ml NEB QID PRN PRN Reason: Wheezing Aspirin (Ecotrin) 81 mg PO DAILY [facility] Carvedilol (Coreg) 25 mg PO BID-WM [facility] Last Admin: 10/27/17 16:15 Dose: 25 mg Clonidine (Catapres) 0.1 mg PO Q4H PRN PRN Reason: Systolic BP > 180 Last Admin: 10/27/17 17:47 Dose: 0.1 mg Heparin Sodium (Porcine) (Heparin) 5,000 units SC BID [facility] Ceftriaxone Sodium 1 gm/ (Syringe) 10 mls @ 120 mls/hr SLOW IVP Q24HR@0200 [facility] Last Admin: 10/27/17 02:49 Dose: 10 mls Sodium Chloride (Normal Saline 0.9%) 1,000 mls @ 50 mls/hr IV .Q20H [facility] Last Admin: 10/27/17 16:15 Dose: 1,000 mls Clomipramine Hcl 200 (Mg) 0 each PO HS [facility]EEPA[facility] Sodium Chloride (Flush - Normal Saline) 10 ml IVF Q12HR [facility] Last Admin: 10/27/17 11:46 Dose: 10 ml Sodium Chloride (Flush - Normal Saline) 10 ml IVF PRN PRN PRN Reason: Saline Flush
[2017-10-27] MEDS ORDERED: CLOMIPRAMINE HCL 200 MG PO SCH (21:00)
[2017-10-28] MEDS: cefTRIAXone\\ROCEPHIN 1 GM in Syringe 10 ML SLOW IVP SCH (02:06)
[2017-10-28 04:41] LABS: #Eosinphils 0.1 thou/uL (0.0-0.7); #Lymphocytes 1.2 thou/uL (1.20-3.40); #Monocytes 0.9 thou/uL (0.11-0.59); #Neutrophils 6.6 thou/uL (1.40-6.50); %Basophils 0.3 % (0.0-1.0); %Eosinophils 1.3 % (0.0-10.0); %Lymphocytes 13.3 % (21.0-51.0); %Monocytes 10.1 % (0.0-10.0); Hemoglobin 8.1 g/dL (12.0-16.0); Mean Corpuscular HGB CONC 31.3 g/dL (32.0-36.0); Mean Corpuscular Hemoglobin 26.5 pg (27.0-31.0); Mean Corpuscular Volume 84.8 fl (81.0-99.0); Mean Platelet Volume 6.9 fL (7.4-10.4); Platelet Count 301 thou/uL (130-400); RBC Distribution Width 14.2 % (11.5-14.5); Red Blood Cell (RBC) Count 3.07 mill/uL (4.20-5.40); White Blood Cell (WBC) Count 8.8 thou/uL (4.8-10.8)
[2017-10-28 04:56] LABS: Albumin 3.1 g/dL (3.4-4.8); Anion Gap 12 mmol/L (10-20); BUN (Urea Nitrogen) 16 mg/dL (9.8-20.1); Calc. Creatinine Clearance 49 mL/min (70-130); Carbon Dioxide 22 mmol/L (23-31); Chloride 104 mmol/L (98-107); Estimated GFR-MDRD 69; Glucose 88 mg/dL (83-110); Magnesium 1.6 mg/dL (1.6-2.6); Phosphorus 2.7 mg/dL (2.3-4.7); Potassium 3.6 mmol/L (3.5-5.1); Sodium 134 mmol/L (136-145)
[2017-10-28] MEDS: Heparin 5,000 UNITS/ML VIAL SC SCH (09:15)
[2017-10-28] MEDS: Aspirin 81 mg Enteric Coated Tablet PO SCH (09:15)
[2017-10-28] MEDS: Carvedilol 25 MG TAB PO SCH ×2 (09:15→16:37)
--- NOTE | 2017-10-28 15:04 | PRG ---
DATE OF SERVICE: 10/28/2017 SUBJECTIVE: Ms. Douglas's events have been reviewed. She is oriented x3 today. She has informed to a palliative care nurse that she does never want to be on life support or be card ioverted. OBJECTIVE: GENERAL: He actually appears older than her age. She is in no distress. She is resting comfortably . VITAL SIGNS: Heart rate 76, respiratory rate 18. She is on room air. Blood pressure 150/54. LUNGS: Clear. CARDIOVASCULAR: Regular rhythm. ABDOMEN: Soft. LABORATORY DATA: She is growing E. coli from her urine and is resistant to quinolones. IMPRESSION: 1. Escherichia coli cystitis with confusion. 2. Do not resuscitate status per her wish and her family's wish. 3. History of bipolar illness. PLAN: Simplify her antibiotics. She is in my opinion stable to transfer out of the Critical Care Un it. She is anemic. She has normal renal function. She could be treated prophylactically with once a day Lovenox and subcu heparin twice a day. This would save her an injection a day. The E. coli is olated in her urine is sensitive to sulfa, but she has a SULFA allergy. She will continue on IV antibiotics for now, although the duration of the course should be short give n this appears to be cystitis. I do not see any blood cultures that were drawn at least that sean pacheco out.
[2017-10-28] MEDS: Sodium Chloride 0.9% 1,000 ML IV SCH (15:49)
--- NOTE | 2017-10-28 20:29 | PDOC.PN ---
- Subjective Encounter Start Date: 10/28/17 Encounter Start Time: 16:00 Patient seen and examined. No new complaints. No overnight events - Objective Resuscitation Status: Resuscitation Status DNR:Do Not Resuscitate MAR Reviewed: Yes Vital Signs & Weight: Vital Signs (12 hours) Temp Pulse Pulse Pulse Resp BP BP 10/28/17 15:47 98.8 F 80 16 10/28/17 15:46 98.8 F 80 16 10/28/17 14:45 77 74 157/47 H 150/54 H 10/28/17 12:00 98.7 F 10/28/17 11:03 76 18 BP Pulse Ox Pulse Ox Pulse Ox 10/28/17 15:47 10/28/17 15:46 173/62 H 95 10/28/17 14:45 94 L 92 L 10/28/17 12:00 10/28/17 11:03 Weight Admit Weight 128 lb 4.944 oz Weight 128 lb 4.944 oz Most Recent Monitor Data Heart Rate from ECG 99 NIBP 150/54 NIBP BP-Mean 77 Respiration from ECG 24 SpO2 97 I&O: 10/27/17 10/28/17 10/29/17 06:59 06:59 06:59 Intake Total 252 2292 400 Output Total 2 Balance 252 2292 398 Result Diagrams: 10/28/17 04:01 10/28/17 04:01 Phys Exam - Physical Examination Constitutional: NAD Respiratory: no wheezing, no rhonchi Cardiovascular: RRR, no rub Gastrointestinal: soft, non-tender, positive bowel sounds Musculoskeletal: no edema Neurological: moves all 4 limbs Dx/Plan - Plan DVT proph w/lovenox, DVT proph w/SCDs IMPRESSION: 1. Acute hypoxic respiratory failure - improved ?prob to Aspiration 2. Sepsis due to E coli UTI - on Ceftriaxone 3. HTN 4. Toxic Metabolic encephalopathy due to UTI - improved 5. Dementia / GERD / HLD / Swallow dys/ Dehydration. Other issues per previous notes PLAN: * Cont Atbx * Critical care following * Cont current meds as below * Cont Modified diet per [employer] * DC planning Review of Systems - Review of Systems Respiratory: negative: Cough, Dry, Shortness of Breath, Hemoptysis, SOB with Excertion, Pleuritic Pain, Sputum, Wheezing Cardiovascular: negative: chest pain, palpitations, orthopnea, paroxysmal nocturnal dyspnea, edema, light headedness - Medications/Allergies Allergies/Adverse Reactions: Allergies Allergy/AdvReac Type Severity Reaction Status Date / Time amlodipine Allergy Verified 10/27/17 03:53 cephalexin Allergy Verified 10/27/17 03:53 hydrochlorothiazide Allergy Verified 10/27/17 03:53 ibuprofen Allergy Verified 10/27/17 03:53 lansoprazole Allergy Verified 10/27/17 03:53 nitrofurantoin Allergy Verified 10/27/17 03:53 [From Macrodantin] Sulfa (Sulfonamide Allergy Verified 10/27/17 03:53 Antibiotics) sulfamethoxazole Allergy Verified 10/27/17 03:53 sulindac Allergy Verified 10/27/17 03:53 trimethoprim Allergy Verified 10/27/17 03:53 Medications: Current Medications Albuterol/Ipratropium (Duoneb) 3 ml IPPB [id number] [facility] Last Admin: 10/28/17 11:03 Dose: 3 ml Albuterol/Ipratropium (Duoneb) 3 ml NEB QID PRN PRN Reason: Wheezing Aspirin (Ecotrin) 81 mg PO DAILY [facility] Last Admin: 10/28/17 09:15 Dose: 81 mg Carvedilol (Coreg) 25 mg PO BID-WM [facility] Last Admin: 10/28/17 16:37 Dose: 25 mg Clonidine (Catapres) 0.1 mg PO Q4H PRN PRN Reason: Systolic BP > 180 Last Admin: 10/27/17 17:47 Dose: 0.1 mg Enoxaparin Sodium (Lovenox) 30 mg SC 0900 [facility] Ceftriaxone Sodium 1 gm/ (Syringe) 10 mls @ 120 mls/hr SLOW IVP Q24HR@0200 [facility] Last Admin: 10/28/17 02:06 Dose: 10 mls Clomipramine Hcl 200 (Mg) 0 each PO HS [facility] Sodium Chloride (Flush - Normal Saline) 10 ml IVF Q12HR [facility] Last Admin: 10/28/17 20:18 Dose: 10 ml Sodium Chloride (Flush - Normal Saline) 10 ml IVF PRN PRN PRN Reason: Saline Flush
[2017-10-29] MEDS: cefTRIAXone\\ROCEPHIN 1 GM in Syringe 10 ML SLOW IVP SCH (02:31)
[2017-10-29] MEDS: Aspirin 81 mg Enteric Coated Tablet PO SCH (08:20)
[2017-10-29] MEDS: Carvedilol 25 MG TAB PO SCH ×2 (08:20→17:19)
[2017-10-29] MEDS ORDERED: Enoxaparin Sodium 30 MG/0.3 ML SYRINGE SC SCH (09:00)
[2017-10-29] MEDS ORDERED: Senokot S 8.6-50 MG TAB PO SCH ×2 (09:30→21:00)
[2017-10-29] MEDS: cloNIDine 0.1 MG TAB PO PRN ×2 (12:01→20:38)
--- NOTE | 2017-10-29 16:15 | PRG ---
DATE OF SERVICE: 10/29/2017 SUBJECTIVE: Misael is in no distress. She knows where she is today. She knows she lives in [place]. PHYSICAL EXAMINATION: VITAL SIGNS: She was hypertensive earlier, but her blood pressure now is 150/62, heart rate 78, resp iratory rate is 18, oximetry is 96% on room air. LUNGS: Clear. HEART: Regular rhythm. ABDOMEN: Soft. EXTREMITIES: With severe rheumatoid deformities. LABORATORY DATA: There is no new lab today. IMPRESSION: Cystitis. Cystitis should easily be treated quickly with IV antibiotics since we treat cystitis quite often wit h just 1 or 3 days of p.o. antibiotics. It would not be unreasonable to consider discharging her back to her [facility]. Her encephalopath y has cleared.
[2017-10-29 16:52] VITALS: TEMP 98.7
[2017-10-29 20:39] VITALS: BP 188/74
--- NOTE | 2017-10-30 10:01 | DIS ---
DATE OF DISCHARGE: 10/29/2017 DISCHARGE DISPOSITION: skilled nursing. FOLLOWUP: Follow up with primary care physician, Dr. Montana at the nursing facility. ALLERGIES: The patient has several medication allergies including CEPHALEXIN, SULFA, NITROFURANTOIN. DISCHARGE MEDICATIONS: IV ceftriaxone 1 gram IV daily until 11/04/2017. Other home medications were resumed. INPATIENT CONSULTANTS: Critical Care, Dr. Delatorre. BRIEF HOSPITAL COURSE: The patient is an 82-year-old female with recurrent urinary tract infections, presented to the hospital with altered mentation. She was also found to have hypoxia for which she was placed on nonrebreather in the Intensive Care Unit. She showed good improvement with nebulizer t reatment and antibiotics. Her urine culture showed E. coli. Please note that blood cultures were no t done prior to antibiotics. She was later transferred to the medical floor. Her O2 saturation is 9 5% on room air. She appears stable for discharge to the nursing facility. She will continue all oth er home medications including carvedilol, clonidine as needed, DuoNebs and low dose aspirin. Due to recurrent UTIs she will benefit from IV antibiotics for a total of 1 week. FINAL DIAGNOSES: 1. Sepsis secondary to urinary tract infection (Escherichia coli). 2. Acute hypoxic respiratory failure of unclear etiology. Possibilities include aspiration. 3. Hypertension. The patient will continue carvedilol with clonidine as needed. 4. Toxic metabolic encephalopathy secondary to urinary tract infection. Her mentation has improved. 5. Dementia. 6. Gastroesophageal reflux disease. 7. Hyperlipidemia. 8. Swallow dysfunction on modified diet. 9. Dehydration. The plan of care was discussed with the patient in detail. She stated understanding. SIGNIFICANT LABORATORY: WBC on admission 13.5. Repeat labs 2 days later was 8.8, h hemoglobin 8.7, VBGs on admission showed pH 7.4 with pCO2 of 41, pO2 49, albumin of 3.1. BUN on admission was 22, at discharge is 16, creatinine 0.84. Sodium 137, potassium 4.2. Urine culture showed E. coli sensitive to ceftriaxone, Bactrim, nitrofurantoin. Please note that the patient is allergic to SULFA, NITROFURANTOIN and CEPHALEXIN. She was able to tolerate ceftriaxone i n the hospital. Total time coordinating the discharge of this patient was 34 minutes.
== END 2017-10-29 20:44 | DRG 871 ==
LOC: ERS 21:23 → CCU 10-27 00:01 → T4-A 10-28 15:43
PROVIDERS: ADMIT Internal Medicine; ATTEND Internal Medicine
DX: A41.51 Sepsis due to Escherichia coli [E. coli] (principal); J96.01 Acute respiratory failure with hypoxia; G93.41 Metabolic encephalopathy; L89.152 Pressure ulcer of sacral region, stage 2; F03.90 Unspecified dementia, unspecified severity, without behavioral disturbance, psychotic disturbance, mood disturbance, and anxiety; D64.9 Anemia, unspecified; E86.0 Dehydration; N30.90 Cystitis, unspecified without hematuria; E78.5 Hyperlipidemia, unspecified; I10 Essential (primary) hypertension; K21.9 Gastro-esophageal reflux disease without esophagitis; Z66 Do not resuscitate
CPT/HCPCS: 36415; 36416; 70450; 71045; 80048; 80053; 80069; 81003; 81015; 82330; 82553; 82803; 83605; 83690; 83735; 84100; 84484; 85025; 87077; 87086; 87186; 93005; 94640; 96365; 96366; A4216; A4353; G8978-GP-CN; G8979-GP-CM; G8987-GO-CN; G8988-GO-CN; G8989-GO-CN; G8996-GN-CL; G8997-GN-CJ; G8997-GN-CK; J0696; J1644; J1650; J1956; J7620

== ENCOUNTER 2017-11-18 15:39 | Emergency (ER) | payer MEDICARE, MEDICAID ==
[2017-11-18 16:49] LABS: #Eosinphils 0.1 thou/uL (0.0-0.7); #Lymphocytes 1.1 thou/uL (1.20-3.40); #Monocytes 0.7 thou/uL (0.11-0.59); #Neutrophils 8.3 thou/uL (1.40-6.50); %Basophils 0.1 % (0.0-1.0); %Eosinophils 1.1 % (0.0-10.0); %Lymphocytes 10.6 % (21.0-51.0); %Neutrophils 81.2 % (42.0-75.0); Hemoglobin 9.2 g/dL (12.0-16.0); Mean Corpuscular HGB CONC 30.6 g/dL (32.0-36.0); Mean Corpuscular Hemoglobin 26.5 pg (27.0-31.0); Mean Corpuscular Volume 86.6 fl (81.0-99.0); Platelet Count 354 thou/uL (130-400); RBC Distribution Width 13.8 % (11.5-14.5); Red Blood Cell (RBC) Count 3.46 mill/uL (4.20-5.40); White Blood Cell (WBC) Count 10.2 thou/uL (4.8-10.8)
[2017-11-18 17:14] LABS: Anion Gap 11 mmol/L (10-20); BUN (Urea Nitrogen) 20 mg/dL (9.8-20.1); Calc. Creatinine Clearance 0 mL/min (70-130); Calcium 8.7 mg/dL (7.8-10.44); Carbon Dioxide 26 mmol/L (23-31); Chloride 103 mmol/L (98-107); Estimated GFR-MDRD 65; Glucose 104 mg/dL (83-110); Magnesium 1.9 mg/dL (1.6-2.6); Potassium 4.1 mmol/L (3.5-5.1); Sodium 136 mmol/L (136-145)
--- NOTE | 2017-11-18 19:11 | RAD ---
LEFT HAND THREE VIEWS: INDICATIONS: History of hand pain. FINDINGS: There is diffuse osteopenia. 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 There is no acute fracture or subluxation demonstrated. IMPRESSION: No acute osseous abnormality. POS: [facility]
== END 2017-11-18 20:17 ==
LOC: ERS 15:39
DX: L03.114 Cellulitis of left upper limb (principal); F41.9 Anxiety disorder, unspecified; F32.9 Major depressive disorder, single episode, unspecified; K21.9 Gastro-esophageal reflux disease without esophagitis; E78.5 Hyperlipidemia, unspecified; I10 Essential (primary) hypertension; G40.909 Epilepsy, unspecified, not intractable, without status epilepticus; G47.00 Insomnia, unspecified; Z79.82 Long term (current) use of aspirin; Z79.899 Other long term (current) drug therapy; W45.0XXA Nail entering through skin, initial encounter
CPT/HCPCS: 36415; 80048; 83735; 85025

== ENCOUNTER 2018-01-01 10:42 | Outpatient (CLI) | payer MEDICARE, MEDICAID ==
[2018-01-01 12:27] LABS: Hemoglobin 8.3 g/dL (12.0-16.0); Mean Corpuscular Hemoglobin 25.8 pg (27.0-31.0); Mean Corpuscular Volume 83.3 fl (81.0-99.0); Mean Platelet Volume 7.6 fL (7.4-10.4); Platelet Count 273 thou/uL (130-400); RBC Distribution Width 13.8 % (11.5-14.5); Red Blood Cell (RBC) Count 3.23 mill/uL (4.20-5.40); White Blood Cell (WBC) Count 11.5 thou/uL (4.8-10.8)
[2018-01-01 12:50] LABS: Anion Gap 10 mmol/L (10-20); BUN (Urea Nitrogen) 30 mg/dL (9.8-20.1); Calc. Creatinine Clearance 0 mL/min (70-130); Calcium 8.5 mg/dL (7.8-10.44); Carbon Dioxide 28 mmol/L (23-31); Chloride 103 mmol/L (98-107); Estimated GFR-MDRD 70; Glucose 103 mg/dL (83-110); Potassium 4.2 mmol/L (3.5-5.1); Sodium 137 mmol/L (136-145)
== END 2018-01-01 10:43 | disposition home or self-care (01) ==
LOC: LABBT 10:42
PROVIDERS: ATTEND Orthopaedic Surgery
DX: Z01.818 Encounter for other preprocedural examination (principal); L98.499 Non-pressure chronic ulcer of skin of other sites with unspecified severity
CPT/HCPCS: 80048; 85027; 93005; 93010

== ENCOUNTER 2018-01-07 08:12 | Day surgery (SDC) | payer MEDICAID, MEDICARE ==
[2018-01-07] MEDS ORDERED: Clindamycin/D5W 900 mg/50 ml Premix Bag ONE (10:07)
[2018-01-07] MEDS ORDERED: Fentanyl 100 MCG/2 ML VIAL ONE (10:18)
[2018-01-07] MEDS ORDERED: Neomycin-Polymyxin 1 ML AMP ONE (10:19)
[2018-01-07] MEDS ORDERED: Bupivacaine HCl 0.5%/Epinephrine 1:200,000/PF 30 ml Vial ONE (11:07)
--- NOTE | 2018-01-07 12:15 | OP ---
DATE OF OPERATION: 01/07/2018 PREOPERATIVE DIAGNOSIS: Severe flexion contracture of index, middle, ring, and little fingers of the left hand. POSTOPERATIVE DIAGNOSIS: Severe flexion contracture of index, middle, ring, and little fingers of th e left hand. PROCEDURE PERFORMED: Flexure tenotomies to the left index, middle, ring, and little fingers of the l eft hand. SURGEON: Lee Temple M.D. ANESTHESIA: General. TECHNIQUE: The patient was given preoperative IV antibiotics, taken to the operating room and placed in supine position. Satisfactory general anesthesia was performed. Left upper extremity was steril berto prepped and draped in usual fashion. After exsanguination, the tourniquet was raised to 250 mmHg that attempts passive range of motion. All of her fingers of left hand could not be pulled away fro m the palm of the hand. A longitudinal incision was made at the wrist, approximately 1-1/2 inches in length. Blunt and sharp dissection was made down. The palmaris longus tendon was divided. The med rosalie nerve was located and gently retracted out of the way and the flexure digitorum sublimis and flex or digitorum profundus tendons were located and all of them were incised. Both the flexure sublimis and profundus tendons to each of the index, middle, ring, and little fingers were all divided. The t humb did not have a severe flexion contracture and did not require tenotomies and the wrist also was in good position in neutral position. After the tenotomies were performed, the fingers could be much easier pulled out from the palm and this showed that the skin of the palm was actually in good condi tion and did not require any type of debridement, it was cleansed. The wound was irrigated and then closed using 3-0 Rapide and 10 mL of 0.5% Marcaine with epinephrine was used for postoperative analge amita. Sterile dressing was applied. The patient was awakened, extubated, and transferred to the [facility] very room in stable condition. ESTIMATED BLOOD LOSS: None. COMPLICATIONS: None. TOURNIQUET TIME: 13 minutes.
[2018-01-07] MEDS ORDERED: PROPOFOL 200 MG/20 ML VIAL ONE (15:54)
[2018-01-07] MEDS ORDERED: Lidocaine 1% PF 5 ML VIAL ONE (15:54)
== END 2018-01-07 13:00 | disposition home or self-care (01) ==
LOC: SDC 08:12
PROVIDERS: ATTEND Orthopaedic Surgery
PROC: 0L880ZZ Division of Left Hand Tendon, Open Approach (ICD-10-PCS; principal; 2018-01-07)
PROC: 0L880ZZ Division of Left Hand Tendon, Open Approach (ICD-10-PCS; 2018-01-07)
PROC: 0L880ZZ Division of Left Hand Tendon, Open Approach (ICD-10-PCS; 2018-01-07)
PROC: 0L880ZZ Division of Left Hand Tendon, Open Approach (ICD-10-PCS; 2018-01-07)
DX: M24.542 Contracture, left hand (principal); I10 Essential (primary) hypertension; G40.909 Epilepsy, unspecified, not intractable, without status epilepticus; F31.9 Bipolar disorder, unspecified; M19.90 Unspecified osteoarthritis, unspecified site; D64.9 Anemia, unspecified; K21.9 Gastro-esophageal reflux disease without esophagitis; Z88.2 Allergy status to sulfonamides; Z88.8 Allergy status to other drugs, medicaments and biological substances; Z79.82 Long term (current) use of aspirin; Z79.899 Other long term (current) drug therapy
CPT/HCPCS: J0670; J2001; J2704; J3010; J3490

== ENCOUNTER 2018-02-13 17:37 | Inpatient (IN) | payer MEDICARE, MEDICAID ==
[2018-02-13 18:36] LABS: #Eosinphils 0.1 thou/uL (0.0-0.7); #Lymphocytes 0.5 thou/uL (1.20-3.40); #Monocytes 0.4 thou/uL (0.11-0.59); #Neutrophils 9.6 thou/uL (1.40-6.50); %Basophils 0.2 % (0.0-1.0); %Eosinophils 1.1 % (0.0-10.0); %Lymphocytes 4.6 % (21.0-51.0); %Neutrophils 90.2 % (42.0-75.0); Hemoglobin 8.6 g/dL (12.0-16.0); Mean Corpuscular Hemoglobin 25.3 pg (27.0-31.0); Mean Corpuscular Volume 81.7 fL (78.0-98.0); Mean Platelet Volume 7.7 fL (7.4-10.4); Platelet Count 233 thou/uL (130-400); RBC Distribution Width 14.5 % (11.5-14.5); Red Blood Cell (RBC) Count 3.39 mill/uL (4.20-5.40); White Blood Cell (WBC) Count 10.7 thou/uL (4.8-10.8)
[2018-02-13 19:01] LABS: ALT (SGPT) 12 U/L (8-55); AST (SGOT) 13 U/L (5-34); Albumin 3.4 g/dL (3.4-4.8); Alkaline Phosphatase 76 U/L (40-150); Anion Gap 12 mmol/L (10-20); BUN (Urea Nitrogen) 29 mg/dL (9.8-20.1); Bilirubin, Total 0.4 mg/dL (0.2-1.2); CK (CPK) 34 U/L (29-168); Calc. Creatinine Clearance 0 mL/min (70-130); Calcium 8.4 mg/dL (7.8-10.44); Carbon Dioxide 27 mmol/L (23-31); Chloride 103 mmol/L (98-107); Estimated GFR-MDRD 70; Globulin 2.9 g/dL (2.4-3.5); Glucose 112 mg/dL (83-110); Potassium 4.3 mmol/L (3.5-5.1); Protein, Total 6.3 g/dL (6.0-8.3); Sodium 138 mmol/L (136-145)
[2018-02-13 19:06] LABS: Troponin I Less than 0.010 ng/mL (< 0.028)
--- NOTE | 2018-02-13 19:22 | RAD ---
AP VIEW OF THE CHEST: 02/13/18 INDICATION: History of difficulty breathing. COMPARISON: Prior study dated 10/26/17. FINDINGS: There is cardiomegaly with pulmonary vascular congestion. There is bibasilar infrahilar air space [place] with moderate left and small right pleural effusion. There is scattered degenerative changes sta ble. IMPRESSION: Findings suggesting component of CHF. There is infrahilar air space opacities which may be related to edema, pneumonia or aspiration. Moderate left and small right pleural effusion. POS: [facility]
[2018-02-13 19:29] LABS: Bilirubin Negative (Negative); Blood, Urine Trace (Negative); Clarity CLOUDY (Clear); Glucose, Urine (Dipstick) Negative (Negative); Leukocyte Moderate (Negative); Nitrite Positive (Negative); Protein, Urine (Dipstick) Trace mg/dL (Neg-Trace); Specific Gravity, Urine 1.019 (1.002-1.036)
[2018-02-13 19:31] LABS: Bacteria/HPF 4+ HPF (None Seen); Hyaline Casts/LPF 0-3 HYALINE CAST LPF (0-3 Hyaline); Pathc Cast-AUWi Flag 0.14 (0-2.49); Squamous Epithelial None Seen HPF (0-3); WBC/HPF 21-50 HPF (0-3)
[2018-02-13] MEDS ORDERED: hydrALAZINE 20 MG/ML VIAL ONE ×2 (19:55→21:22)
[2018-02-13] MEDS ORDERED: Piperacillin/Tazobactam 4.5 GM VIAL ONE (20:57)
[2018-02-13] MEDS ORDERED: Piperacillin/Tazobactam 4.5 GM in Sodium Chloride 0.9% 100 ML IVPB SCH (21:15)
[2018-02-13] MEDS ORDERED: Ondansetron HCl/PF 4 MG/2 ML Vial IVP PRN (22:52)
[2018-02-13] MEDS ORDERED: Ondansetron ODT 4 MG TAB SL PRN (22:52)
[2018-02-13] MEDS ORDERED: Acetaminophen 325 MG TAB PO PRN (22:52)
[2018-02-13] MEDS ORDERED: Sodium Chloride 0.9% 1,000 ML IV SCH (22:52)
[2018-02-13 23:00] VITALS: BMI 25.2
[2018-02-14] MEDS ORDERED: Piperacillin/Tazobactam 4.5 GM in Sodium Chloride 0.9% 100 ML IVPB SCH (04:00)
[2018-02-14] MEDS ORDERED: Acetaminophen 325 MG TAB PO PRN (04:26)
[2018-02-14] MEDS: metroNIDAZOLE 500 MG in Premix Bag 1 BAG IVPB SCH ×3 (06:23→22:33)
[2018-02-14] MEDS: Sodium Chloride 0.9% 1,000 ML IV SCH ×2 (06:24→22:35)
--- NOTE | 2018-02-14 07:23 | HP ---
PRIMARY CARE PHYSICIAN: Amparo Montana D.O. CHIEF COMPLAINT: Shortness of breath. HISTORY OF PRESENT ILLNESS: The history of present illness is very limited as the patient has advanc ed dementia and is unable to give me any history. In fact, she says that she is not feeling bad othe r than having insomnia and trouble sleeping. Ms. Douglas is an 82-year-old female who is a nursing [facility] resident. [facility] apparently [facility] due to difficulty breathing. It is unclear whether or not she had any cough or congestion and also unclear whether or not she was hypox ic at the [facility], but she was sent over due to concerns. When she was evaluated in the emergen cy room, she had a chest x-ray done which showed some changes consistent with either an infiltrate in the lower lobes or excess fluid. She does have a history of dysphasia and it is quite possible that she could have aspirated or she could have a healthcare associated pneumonia. She is being admitted for further treatment. Otherwise, no other history is obtainable. The review of systems is unobtai nable due to the patient's mental status and no other family available. PAST MEDICAL HISTORY: Significant for hyperlipidemia, hypertension, and gastroesophageal reflux dise ase. 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 PAST SURGICAL HISTORY: Significant for cataract surgery and hysterectomy. SOCIAL HISTORY: She is a nonsmoker, nondrinker. She resides at the [facility]. Her code status according to her records from the [facility] is DNR. FAMILY HISTORY: Unknown. MEDICATIONS: Include the following vitamin C, Xanax 0.25 mg t.i.d., Senokot 1 tablet daily, Tylenol Arthritis daily, multivitamin once a day, Carvedilol 25 mg twice a day, albuterol q.6 hours as needed , clomipramine 150 mg at bedtime, clonidine as needed 0.1 mg, aspirin 81 mg daily, albuterol sulfate q.6 hours as needed, and Tylenol No. 4 as needed. PHYSICAL EXAMINATION: GENERAL: She is oriented to person only. She was unable to tell me the date or the year or where [facility] is located. VITAL SIGNS: Her blood pressure was 177/70, heart rate is in the 80s, respiratory rate of 18, temper ature is 98.4, O2 sat is 95% on 2 liters. She is well-developed and appears well-nourished, and she is not in any distress. HEENT: Pupils are equal, round, and reactive. Extraocular muscles are intact. Her sclerae are anic teric. Throat no erythema, no exudates. NECK: No adenopathy, no bruits. LUNGS: Essentially clear. She did have some coarse breath sounds at the bases. CARDIOVASCULAR: She has a normal S1, S2. I did not appreciate an S3 or S4. No murmurs, clicks, no rubs. ABDOMEN: Obese, soft, nontender, nondistended. Positive for bowel sounds. No rebound, no guarding. EXTREMITIES: There is trace edema. NEUROLOGIC: She has got a right facial droop and it appears as if the right hand is a bit contracted and she has difficulty extending the arm. Otherwise, she is moving all of her extremities. SKIN AND INTEGUMENT: There is no skin change or rash. LABORATORY RESULTS: White blood cell count is 10.7, hemoglobin 8.6, hematocrit is 27.7, and platelet count is 233. Sodium 138, potassium 4.3, chloride is 103, CO2 is 27, BUN of 29, creatinine 0.79, gl ucose is 112. Troponin was less than 0.010. Urinalysis was nitrite positive and 4+ bacteria, 21-50 wbc's. ASSESSMENT: This is a pleasant 82-year-old female that was [facility] due to sh ortness of breath. Unfortunately, due to her advanced dementia, she is not able to offer much more w ith regards to symptomatology. She did have some radiographic findings consistent with possible infi ltrate versus fluid since her natriuretic peptide is not very elevated. I suspect this represents a pneumonia and she is at risk for aspiration given her previous stroke and dysphasia. PLAN: 1. Probable aspiration pneumonia. We will place her on Levaquin and Flagyl and consider a speech th erapy evaluation. 2. Urinary tract infection. Unfortunately, due to her dementia, it is difficult to tell whether or not she has any symptoms related to the urinary tract; however, the Levaquin should cover this and we will get a urine culture if it has not been done in the ER. 3. Hypertension. We will restart her home medications as well as a p.r.n. hydralazine. CODE STATUS: DNR from [facility] records from the [facility] and she also has an out of hospital DNR in t he chart. Therefore, we will continue with DNR status.
[2018-02-14] MEDS: hydrALAZINE 20 MG/ML VIAL SLOW IVP PRN (08:46)
[2018-02-14] MEDS: Enoxaparin Sodium 30 MG/0.3 ML SYRINGE SC SCH (08:49)
[2018-02-14] MEDS ORDERED: Famotidine/PF 20 mg/2ml Vial SLOW IVP SCH (09:00)
[2018-02-14] MEDS: Carvedilol 25 MG TAB PO SCH ×2 (10:42→20:38)
[2018-02-14] MEDS: Aspirin 81 mg Enteric Coated Tablet PO SCH (10:42)
[2018-02-14] MEDS: ALPRAZolam 0.25 MG TAB PO SCH ×3 (10:42→20:38)
[2018-02-14] MEDS: Famotidine 20 MG TAB PO SCH (20:38)
[2018-02-14] MEDS ORDERED: traZODone HCl 50 MG TAB PO SCH (23:30)
[2018-02-15 05:15] LABS: #Lymphocytes 1.1 thou/uL (1.20-3.40); #Monocytes 0.5 thou/uL (0.11-0.59); #Neutrophils 7.4 thou/uL (1.40-6.50); %Basophils 0.2 % (0.0-1.0); %Eosinophils 0.1 % (0.0-10.0); %Lymphocytes 11.8 % (21.0-51.0); %Neutrophils 81.9 % (42.0-75.0); Mean Corpuscular HGB CONC 30.5 g/dL (32.0-36.0); Mean Corpuscular Hemoglobin 24.8 pg (27.0-31.0); Mean Corpuscular Volume 81.4 fL (78.0-98.0); Mean Platelet Volume 7.5 fL (7.4-10.4); Platelet Count 251 thou/uL (130-400); RBC Distribution Width 14.8 % (11.5-14.5); Red Blood Cell (RBC) Count 3.61 mill/uL (4.20-5.40); White Blood Cell (WBC) Count 9.1 thou/uL (4.8-10.8)
[2018-02-15 05:26] LABS: Anion Gap 11 mmol/L (10-20); BUN (Urea Nitrogen) 21 mg/dL (9.8-20.1); Calc. Creatinine Clearance 59 mL/min (70-130); Calcium 8.3 mg/dL (7.8-10.44); Carbon Dioxide 27 mmol/L (23-31); Chloride 107 mmol/L (98-107); Estimated GFR-MDRD 75; Glucose 85 mg/dL (83-110); Potassium 3.5 mmol/L (3.5-5.1); Sodium 141 mmol/L (136-145)
[2018-02-15] MEDS: metroNIDAZOLE 500 MG in Premix Bag 1 BAG IVPB SCH ×3 (05:43→23:05)
[2018-02-15] MEDS: Famotidine 20 MG TAB PO SCH ×2 (08:07→21:27)
[2018-02-15] MEDS: Carvedilol 25 MG TAB PO SCH ×2 (08:07→21:27)
[2018-02-15] MEDS: ALPRAZolam 0.25 MG TAB PO SCH ×3 (08:07→21:27)
[2018-02-15] MEDS: Aspirin 81 mg Enteric Coated Tablet PO SCH (08:07)
[2018-02-15] MEDS: Enoxaparin Sodium 30 MG/0.3 ML SYRINGE SC SCH (08:07)
[2018-02-15] MEDS: cloNIDine 0.2 MG TAB PO PRN (08:14)
[2018-02-15] MEDS ORDERED: Prevnar 13-Val Conj/PF 0.5 ML SYRINGE IM ONE (09:00)
[2018-02-15] MEDS: hydrALAZINE 20 MG/ML VIAL SLOW IVP PRN (10:15)
[2018-02-15] MEDS: Sodium Chloride 0.9% 1,000 ML IV SCH ×2 (12:13→23:07)
--- NOTE | 2018-02-15 14:20 | PDOC.PN ---
- Subjective Encounter Start Date: 02/15/18 Encounter Start Time: 10:30 -: old records requested/rev Pt seen and examined, chart reviewed in its entirety, this is my first visit with this patient Pt confused. no pain, no f/c, no N/V/d/C, no acute events ROS not obtainable - Objective Resuscitation Status: Resuscitation Status DNR:Do Not Resuscitate MAR Reviewed: Yes Vital Signs & Weight: Vital Signs (12 hours) Temp Pulse Resp BP BP Pulse Ox 02/15/18 11:32 97.8 F 72 16 175/67 H 95 02/15/18 11:01 94 L 02/15/18 10:15 204/74 H 02/15/18 10:10 204/74 H 02/15/18 09:10 210/71 H 02/15/18 08:14 218/82 H 02/15/18 08:07 98 F 69 16 94 L 02/15/18 08:00 98 F 69 16 218/82 H 94 L 02/15/18 07:59 98 F 69 16 94 L 02/15/18 03:28 95 Weight Weight 142 lb 2 oz I&O: 02/14/18 02/15/18 02/16/18 06:59 06:59 06:59 Intake Total 740 Balance 740 Result Diagrams: 02/15/18 04:10 02/15/18 04:10 Radiology Reviewed by me: Yes EKG Reviewed by me: Yes Phys Exam - Physical Examination Constitutional: NAD HEENT: PERRLA, moist MMs, sclera anicteric, oral pharynx no lesions Neck: no nodes, no JVD, supple, full ROM Respiratory: no wheezing, no rales, no rhonchi, clear to auscultation bilateral Cardiovascular: RRR, no significant murmur, no rub Gastrointestinal: soft, non-tender, no distention, positive bowel sounds Musculoskeletal: no edema Neurological: non-focal, normal sensation, moves all 4 limbs Lymphatic: no nodes Psychiatric: normal affect, A&O x 3 Skin: no rash, normal turgor, cap refill <2 seconds Dx/Plan (1) Acute respiratory failure Code(s): J96.00 - ACUTE RESPIRATORY FAILURE, UNSP W HYPOXIA OR HYPERCAPNIA Status: Acute Qualifiers: Respiratory failure complication: hypoxia Qualified Code(s): J96.01 - Acute respiratory failure with hypoxia Comment: Vanc, Cefepime, repeat CXR soon (2) Aspiration pneumonitis Code(s): J69.0 - PNEUMONITIS DUE TO INHALATION OF FOOD AND VOMIT Status: Acute (3) Dysphagia Code(s): R13.10 - DYSPHAGIA, UNSPECIFIED Status: Chronic Qualifiers: Dysphagia type: unspecified Qualified Code(s): R13.10 - Dysphagia, unspecified Comment: mbs normal in past (4) Physical deconditioning Code(s): R53.81 - OTHER MALAISE Status: Acute (5) Dementia Code(s): F03.90 - UNSPECIFIED DEMENTIA WITHOUT BEHAVIORAL DISTURBANCE Status: Chronic Qualifiers: Dementia type: unspecified type Dementia behavioral disturbance: without behavioral disturbance Qualified Code(s): F03.90 - Unspecified dementia without behavioral disturbance (6) GERD (gastroesophageal reflux disease) Code(s): K21.9 - GASTRO-ESOPHAGEAL REFLUX DISEASE WITHOUT ESOPHAGITIS Status: Chronic Qualifiers: Esophagitis presence: esophagitis presence not specified Qualified Code(s) : K21.9 - Gastro-esophageal reflux disease without esophagitis (7) HTN (hypertension) Code(s): I10 - ESSENTIAL (PRIMARY) HYPERTENSION Status: Chronic Qualifiers: Hypertension type: essential hypertension Qualified Code(s): I10 - Essential (primary) hypertension (8) UTI (urinary tract infection) Status: Acute Qualifiers: Urinary tract infection type: acute cystitis Hematuria presence: without hematuria Qualified Code(s): N30.00 - Acute cystitis without hematuria Comment: culture E coli quinolone and amp resistant - Plan cont current plan of care, continue antibiotics, PT/OT, social group worker, respiratory therapy, out of bed/ambulate * .
[2018-02-16] MEDS: metroNIDAZOLE 500 MG in Premix Bag 1 BAG IVPB SCH (05:06)
[2018-02-16 05:20] LABS: #Basophils 0.1 thou/uL (0.0-0.2); #Eosinphils 0.1 thou/uL (0.0-0.7); #Lymphocytes 1.1 thou/uL (1.20-3.40); #Monocytes 0.7 thou/uL (0.11-0.59); #Neutrophils 5.9 thou/uL (1.40-6.50); %Basophils 0.8 % (0.0-1.0); %Eosinophils 1.6 % (0.0-10.0); %Lymphocytes 14.3 % (21.0-51.0); %Monocytes 8.8 % (0.0-10.0); %Neutrophils 74.5 % (42.0-75.0); Hemoglobin 9.1 g/dL (12.0-16.0); Mean Corpuscular HGB CONC 30.2 g/dL (32.0-36.0); Mean Corpuscular Hemoglobin 24.5 pg (27.0-31.0); Mean Corpuscular Volume 81.2 fL (78.0-98.0); Mean Platelet Volume 7.7 fL (7.4-10.4); Platelet Count 264 thou/uL (130-400); RBC Distribution Width 14.9 % (11.5-14.5); Red Blood Cell (RBC) Count 3.69 mill/uL (4.20-5.40)
[2018-02-16 05:35] LABS: Anion Gap 11 mmol/L (10-20); BUN (Urea Nitrogen) 21 mg/dL (9.8-20.1); Calc. Creatinine Clearance 59 mL/min (70-130); Calcium 8.5 mg/dL (7.8-10.44); Carbon Dioxide 27 mmol/L (23-31); Chloride 105 mmol/L (98-107); Estimated GFR-MDRD 76; Glucose 85 mg/dL (83-110); Magnesium 1.6 mg/dL (1.6-2.6); Potassium 3.9 mmol/L (3.5-5.1); Sodium 139 mmol/L (136-145)
[2018-02-16] MEDS: ALPRAZolam 0.25 MG TAB PO SCH ×3 (07:38→21:50)
[2018-02-16] MEDS: cloNIDine 0.2 MG TAB PO PRN (07:38)
[2018-02-16] MEDS: Enoxaparin Sodium 30 MG/0.3 ML SYRINGE SC SCH (07:38)
[2018-02-16] MEDS: Famotidine 20 MG TAB PO SCH ×2 (07:38→21:50)
[2018-02-16] MEDS: Aspirin 81 mg Enteric Coated Tablet PO SCH (07:38)
[2018-02-16] MEDS: Carvedilol 25 MG TAB PO SCH ×2 (07:39→21:50)
--- NOTE | 2018-02-16 08:59 | RAD ---
PORTABLE CHEST: Date: 02/16/18 PROVIDED CLINICAL HISTORY: Aspiration pneumonia. FINDINGS: Comparison with 02/13/18. Cardiac silhouette remains enlarged. Prominent left basilar pleural parenchymal opacity appears simil ar to the prior examination. Right lung remains clear. No evidence for pneumothorax. IMPRESSION: Stable radiographic appearance of the chest. POS: [facility]
[2018-02-16] MEDS ORDERED: Acetaminophen ER (8hr) 650 MG TAB PO PRN (09:25)
[2018-02-16] MEDS ORDERED: Lisinopril 5 MG TAB PO SCH ×2 (09:26→09:30)
[2018-02-16] MEDS ORDERED: Meropenem 1 GM in Sodium Chloride 0.9% 100 ML IVPB SCH (10:00)
[2018-02-16] MEDS: MEROPENEM 1 GM/50 ML 1 GM in Premix Bag 1 BAG IVPB SCH ×2 (10:06→17:26)
[2018-02-16] MEDS: hydrALAZINE 20 MG/ML VIAL SLOW IVP PRN (12:08)
--- NOTE | 2018-02-16 14:14 | PDOC.PN ---
- Subjective Encounter Start Date: 02/16/18 Encounter Start Time: 14:12 Subjective: feels better. denies any SOB.still weak. -: WC bound at baseline.denies any CP.+cough - Objective Resuscitation Status: Resuscitation Status DNR:Do Not Resuscitate MAR Reviewed: Yes Vital Signs & Weight: Vital Signs (12 hours) Temp Pulse Resp BP Pulse Ox 02/16/18 12:08 74 212/73 H 02/16/18 09:58 172/73 H 02/16/18 08:00 98.6 F 74 20 92 L 02/16/18 07:38 202/78 H 02/16/18 07:19 98.6 F 74 20 92 L Weight Weight 142 lb 2 oz I&O: 02/15/18 02/16/18 02/17/18 06:59 06:59 06:59 Intake Total 740 480 Balance 740 480 Result Diagrams: 02/16/18 04:35 02/16/18 04:35 Additional Labs: Microbiology 02/13/18 19:19 Urine clean catch Urine Culture - Final Escherichia coli 02/13/18 20:48 Venous blood - Right Hand Blood Culture - Preliminary NO GROWTH AT 48 HOURS 02/13/18 20:43 Venous blood - Right Arm Blood Culture - Preliminary NO GROWTH AT 48 HOURS labs reviewed Radiology Reviewed by me: Yes (CXR-stable) Phys Exam - Physical Examination Constitutional: NAD HEENT: PERRLA, moist MMs, sclera anicteric, oral pharynx no lesions Neck: no nodes, no JVD, supple, full ROM Respiratory: no wheezing, no rales, no rhonchi, clear to auscultation bilateral Cardiovascular: RRR, no significant murmur Gastrointestinal: soft, non-tender, no distention, positive bowel sounds Musculoskeletal: no edema, pulses present Neurological: non-focal, normal sensation, moves all 4 limbs Psychiatric: normal affect, A&O x 3 Skin: no rash Dx/Plan (1) Sepsis Code(s): A41.9 - SEPSIS, UNSPECIFIED ORGANISM Status: Acute (2) Uncontrolled hypertension Code(s): I10 - ESSENTIAL (PRIMARY) HYPERTENSION Status: Acute (3) Aspiration pneumonitis Code(s): J69.0 - PNEUMONITIS DUE TO INHALATION OF FOOD AND VOMIT Status: Acute (4) UTI (urinary tract infection) Status: Acute Qualifiers: Urinary tract infection type: acute cystitis Hematuria presence: without hematuria Qualified Code(s): N30.00 - Acute cystitis without hematuria Comment: culture E coli quinolone and amp resistant (5) Dementia Code(s): F03.90 - UNSPECIFIED DEMENTIA WITHOUT BEHAVIORAL DISTURBANCE Status: Chronic Qualifiers: Dementia type: unspecified type Dementia behavioral disturbance: without behavioral disturbance Qualified Code(s): F03.90 - Unspecified dementia without behavioral disturbance (6) GERD (gastroesophageal reflux disease) Code(s): K21.9 - GASTRO-ESOPHAGEAL REFLUX DISEASE WITHOUT ESOPHAGITIS Status: Chronic Qualifiers: Esophagitis presence: esophagitis presence not specified Qualified Code(s) : K21.9 - Gastro-esophageal reflux disease without esophagitis (7) HTN (hypertension) Code(s): I10 - ESSENTIAL (PRIMARY) HYPERTENSION Status: Chronic Qualifiers: Hypertension type: essential hypertension Qualified Code(s): I10 - Essential (primary) hypertension (8) Microcytic anemia Code(s): D50.9 - IRON DEFICIENCY ANEMIA, UNSPECIFIED Status: Acute - Plan continue antibiotics, PT/OT, respiratory therapy, incentive spirometry, DVT proph w/SCDs BP uncontrolled. add BID lisinopril.cont coreg.monitor.PRN meds as well -: E.Coli i urine R to Levaquin-will cahnge to meropenam to cover PNA+UTI -: Add OT/PT as tolerated. HH on DC.lives in [place] -: am labs. -: add IS,mucinex,nebs prn * . Review of Systems - Review of Systems Constitutional: weakness, malaise. negative: fever, chills, sweats, other Respiratory: Cough. negative: Dry, Shortness of Breath, Hemoptysis, SOB with Excertion, Pleuritic Pain, Sputum, Wheezing Cardiovascular: negative: chest pain, palpitations, orthopnea, paroxysmal nocturnal dyspnea, edema, light headedness, other Gastrointestinal: negative: Nausea, Vomiting, Abdominal Pain, Diarrhea, Constipation, Melena, Hematochezia, Other Genitourinary: negative: Dysuria, Frequency, Incontinence, Hematuria, Retention , Other Musculoskeletal: negative: Neck Pain, Shoulder Pain, Arm Pain, Back Pain, Hand Pain, Leg Pain, Foot Pain, Other Neurological: negative: Weakness, Numbness, Incoordination, Change in Speech, Confusion, Seizures, Other - Medications/Allergies Allergies/Adverse Reactions: Allergies Allergy/AdvReac Type Severity Reaction Status Date / Time amlodipine Allergy Verified 01/01/18 11:11 cephalexin Allergy Verified 01/01/18 11:11 hydrochlorothiazide Allergy Verified 01/01/18 11:11 ibuprofen Allergy Verified 01/01/18 11:11 lansoprazole Allergy Verified 01/01/18 11:11 nitrofurantoin Allergy Verified 01/01/18 11:11 [From Macrodantin] Sulfa (Sulfonamide Allergy Verified 01/01/18 11:11 Antibiotics) sulfamethoxazole Allergy Verified 01/01/18 11:11 sulindac Allergy Verified 01/01/18 11:11 trimethoprim Allergy Verified 01/01/18 11:11 Medications: Current Medications Acetaminophen (Tylenol Er (8hr Arthritis Pain)) 650 mg PO Q6H PRN PRN Reason: Pain Albuterol/Ipratropium (Duoneb) 3 ml NEB Q4H PRN PRN Reason: SOB &/or Wheezing Alprazolam (Xanax) 0.25 mg PO TID [facility] Last Admin: 02/16/18 07:38 Dose: 0.25 mg Ascorbic Acid (Vitamin C) 500 mg PO BID [facility] Aspirin (Ecotrin) 81 mg PO QAM [facility] Last Admin: 02/16/18 07:38 Dose: 81 mg Carvedilol (Coreg) 25 mg PO BID [facility] Last Admin: 02/16/18 07:39 Dose: 25 mg Clonidine (Catapres) 0.2 mg PO Q4H PRN PRN Reason: Hypertension Last Admin: 02/16/18 07:38 Dose: 0.2 mg Enoxaparin Sodium (Lovenox) 30 mg SC 0900 [facility] Last Admin: 02/16/18 07:38 Dose: 30 mg Famotidine (Pepcid) 20 mg PO BID [facility] Last Admin: 02/16/18 07:38 Dose: 20 mg Hydralazine HCl (Apresoline) 10 mg SLOW IVP Q4H PRN PRN Reason: Systolic BP > 180 Last Admin: 02/16/18 12:08 Dose: 10 mg Sodium Chloride (Normal Saline 0.9%) 1,000 mls @ 60 mls/hr IV .[id number] [facility] Last Admin: 02/15/18 23:07 Dose: 1,000 mls Meropenem 1 gm/ Device 50 mls @ 100 mls/hr IVPB Q8H [facility] Last Admin: 02/16/18 10:06 Dose: 50 mls Lisinopril (Zestril) 5 mg PO BID [facility] Multivitamins (Theragran) 1 tab PO DAILY [facility] Sodium Chloride (Flush - Normal Saline) 10 ml IVF Q12HR [facility] Sodium Chloride (Flush - Normal Saline) 10 ml IVF PRN PRN PRN Reason: Saline Flush
[2018-02-16] MEDS ORDERED: Non-Formulary Item 1 EACH (Ascorbate Calcium [Vitamin C] 500 MG) PO SCH (21:00)
[2018-02-16] MEDS: guaiFENesin ER 600 MG TAB PO SCH (21:50)
[2018-02-16] MEDS: Lisinopril 5 MG TAB PO SCH (21:50)
[2018-02-16] MEDS: Ascorbic Acid 500 mg Chewable Tablet PO SCH (21:51)
[2018-02-16] MEDS: Sodium Chloride 0.9% 1,000 ML IV SCH (21:56)
[2018-02-17] MEDS: MEROPENEM 1 GM/50 ML 1 GM in Premix Bag 1 BAG IVPB SCH ×3 (02:03→17:06)
[2018-02-17 04:58] LABS: Anion Gap 11 mmol/L (10-20); BUN (Urea Nitrogen) 20 mg/dL (9.8-20.1); Calc. Creatinine Clearance 52 mL/min (70-130); Calcium 8.2 mg/dL (7.8-10.44); Carbon Dioxide 24 mmol/L (23-31); Chloride 108 mmol/L (98-107); Estimated GFR-MDRD 65; Glucose 97 mg/dL (83-110); Potassium 3.6 mmol/L (3.5-5.1); Sodium 139 mmol/L (136-145)
[2018-02-17] MEDS: Aspirin 81 mg Enteric Coated Tablet PO SCH (08:15)
[2018-02-17] MEDS: Carvedilol 25 MG TAB PO SCH ×2 (08:15→20:40)
[2018-02-17] MEDS: ALPRAZolam 0.25 MG TAB PO SCH ×3 (08:15→20:40)
[2018-02-17] MEDS: Ascorbic Acid 500 mg Chewable Tablet PO SCH ×2 (08:15→20:40)
[2018-02-17] MEDS: Multivit, Therapeutic 1 TAB PO SCH (08:15)
[2018-02-17] MEDS: Lisinopril 5 MG TAB PO SCH (08:15)
[2018-02-17] MEDS: Famotidine 20 MG TAB PO SCH ×2 (08:16→20:40)
[2018-02-17] MEDS: guaiFENesin ER 600 MG TAB PO SCH ×2 (08:16→20:40)
[2018-02-17] MEDS: Enoxaparin Sodium 30 MG/0.3 ML SYRINGE SC SCH (08:16)
[2018-02-17] MEDS ORDERED: Non-Formulary Item 1 EACH (Multivitamin [Multivitamins] 1 CAP) PO SCH (09:00)
--- NOTE | 2018-02-17 13:37 | PDOC.PN ---
- Subjective Encounter Start Date: 02/17/18 Encounter Start Time: 13:35 Subjective: feels better. denies any discomfort.denies any SOB/Abd pain/N/V/D - Objective Resuscitation Status: Resuscitation Status DNR:Do Not Resuscitate MAR Reviewed: Yes Vital Signs & Weight: Vital Signs (12 hours) Temp Pulse Resp BP BP Pulse Ox 02/17/18 11:00 98.0 F 75 24 H 148/91 H 95 02/17/18 10:08 119/86 02/17/18 08:16 98.5 F 73 20 99 02/17/18 08:15 73 194/75 H 02/17/18 08:00 98.5 F 73 20 194/75 H 99 Weight Weight 142 lb 2 oz I&O: 02/16/18 02/17/18 02/18/18 06:59 06:59 06:59 Intake Total 480 1060 240 Balance 480 1060 240 Result Diagrams: 02/16/18 04:35 02/17/18 04:21 Additional Labs: Microbiology 02/13/18 19:19 Urine clean catch Urine Culture - Final Escherichia coli 02/13/18 20:48 Venous blood - Right Hand Blood Culture - Preliminary NO GROWTH AT 48 HOURS 02/13/18 20:43 Venous blood - Right Arm Blood Culture - Preliminary NO GROWTH AT 48 HOURS Phys Exam - Physical Examination Constitutional: NAD HEENT: PERRLA, sclera anicteric, oral pharynx no lesions dry mucosa Neck: no nodes, no JVD, supple, full ROM Respiratory: no wheezing, no rales, no rhonchi, wheezing present, clear to auscultation bilateral Cardiovascular: RRR, no significant murmur Gastrointestinal: soft, non-tender, no distention, positive bowel sounds Musculoskeletal: no edema, pulses present Neurological: non-focal, normal sensation, moves all 4 limbs Psychiatric: normal affect, A&O x 3 Skin: no rash Dx/Plan (1) Sepsis Code(s): A41.9 - SEPSIS, UNSPECIFIED ORGANISM Status: Acute (2) Uncontrolled hypertension Code(s): I10 - ESSENTIAL (PRIMARY) HYPERTENSION Status: Acute (3) Aspiration pneumonitis Code(s): J69.0 - PNEUMONITIS DUE TO INHALATION OF FOOD AND VOMIT Status: Acute (4) UTI (urinary tract infection) Status: Acute Qualifiers: Urinary tract infection type: acute cystitis Hematuria presence: without hematuria Qualified Code(s): N30.00 - Acute cystitis without hematuria Comment: culture E coli quinolone and amp resistant (5) Dementia Code(s): F03.90 - UNSPECIFIED DEMENTIA WITHOUT BEHAVIORAL DISTURBANCE Status: Chronic Qualifiers: Dementia type: unspecified type Dementia behavioral disturbance: without behavioral disturbance Qualified Code(s): F03.90 - Unspecified dementia without behavioral disturbance (6) GERD (gastroesophageal reflux disease) Code(s): K21.9 - GASTRO-ESOPHAGEAL REFLUX DISEASE WITHOUT ESOPHAGITIS Status: Chronic Qualifiers: Esophagitis presence: esophagitis presence not specified Qualified Code(s) : K21.9 - Gastro-esophageal reflux disease without esophagitis (7) HTN (hypertension) Code(s): I10 - ESSENTIAL (PRIMARY) HYPERTENSION Status: Chronic Qualifiers: Hypertension type: essential hypertension Qualified Code(s): I10 - Essential (primary) hypertension (8) Microcytic anemia Code(s): D50.9 - IRON DEFICIENCY ANEMIA, UNSPECIFIED Status: Acute - Plan continue antibiotics, PT/OT, social sciences lecturer, DVT proph w/SCDs clinically better.started on meropenam yesterday for resistant E.Coli. -: cont IV Abx for at least 72 hours,then PO. -: OT,PT. -: encourage Po intake. -: follow final Cx results. blood Cx negative so far * .BP still very high.increase lisinopril to 10 bid. * am labs Review of Systems - Review of Systems Constitutional: weakness, malaise. negative: fever, chills, sweats, other ENT: negative: Ear Pain, Ear Discharge, Nose Pain, Nose Discharge, Nose Congestion, Mouth Pain, Mouth Swelling, Throat Pain, Throat Swelling, Other Respiratory: negative: Cough, Dry, Shortness of Breath, Hemoptysis, SOB with Excertion, Pleuritic Pain, Sputum, Wheezing Cardiovascular: negative: chest pain, palpitations, orthopnea, paroxysmal nocturnal dyspnea, edema, light headedness, other Gastrointestinal: negative: Nausea, Vomiting, Abdominal Pain, Diarrhea, Constipation, Melena, Hematochezia, Other Genitourinary: negative: Dysuria, Frequency, Incontinence, Hematuria, Retention , Other Musculoskeletal: negative: Neck Pain, Shoulder Pain, Arm Pain, Back Pain, Hand Pain, Leg Pain, Foot Pain, Other Skin: negative: Rash, Lesions, Michael, Bruising, Other Neurological: negative: Weakness, Numbness, Incoordination, Change in Speech, Confusion, Seizures, Other - Medications/Allergies Allergies/Adverse Reactions: Allergies Allergy/AdvReac Type Severity Reaction Status Date / Time amlodipine Allergy Verified 01/01/18 11:11 cephalexin Allergy Verified 01/01/18 11:11 hydrochlorothiazide Allergy Verified 01/01/18 11:11 ibuprofen Allergy Verified 01/01/18 11:11 lansoprazole Allergy Verified 01/01/18 11:11 nitrofurantoin Allergy Verified 01/01/18 11:11 [From Macrodantin] Sulfa (Sulfonamide Allergy Verified 01/01/18 11:11 Antibiotics) sulfamethoxazole Allergy Verified 01/01/18 11:11 sulindac Allergy Verified 01/01/18 11:11 trimethoprim Allergy Verified 01/01/18 11:11 Medications: Current Medications Acetaminophen (Tylenol Er (8hr Arthritis Pain)) 650 mg PO Q6H PRN PRN Reason: Pain Albuterol/Ipratropium (Duoneb) 3 ml NEB Q4H PRN PRN Reason: SOB &/or Wheezing Alprazolam (Xanax) 0.25 mg PO TID [facility] Last Admin: 02/17/18 08:15 Dose: 0.25 mg Ascorbic Acid (Vitamin C) 500 mg PO BID [facility] Last Admin: 02/17/18 08:15 Dose: 500 mg Aspirin (Ecotrin) 81 mg PO QAM [facility] Last Admin: 02/17/18 08:15 Dose: 81 mg Carvedilol (Coreg) 25 mg PO BID [facility] Last Admin: 02/17/18 08:15 Dose: 25 mg Clonidine (Catapres) 0.2 mg PO Q4H PRN PRN Reason: Hypertension Last Admin: 02/16/18 07:38 Dose: 0.2 mg Enoxaparin Sodium (Lovenox) 30 mg SC 0900 [facility] Last Admin: 02/17/18 08:16 Dose: 30 mg Famotidine (Pepcid) 20 mg PO BID [facility] Last Admin: 02/17/18 08:16 Dose: 20 mg Guaifenesin (Mucinex) 600 mg PO Q12HR [facility] Last Admin: 02/17/18 08:16 Dose: 600 mg Hydralazine HCl (Apresoline) 10 mg SLOW IVP Q4H PRN PRN Reason: Systolic BP > 180 Last Admin: 02/16/18 12:08 Dose: 10 mg Sodium Chloride (Normal Saline 0.9%) 1,000 mls @ 60 mls/hr IV .[id number] [facility] Last Admin: 02/16/18 21:56 Dose: 1,000 mls Meropenem 1 gm/ Device 50 mls @ 100 mls/hr IVPB Q8H [facility] Last Admin: 02/17/18 09:20 Dose: 50 mls Lisinopril (Zestril) 10 mg PO BID [facility] Multivitamins (Theragran) 1 tab PO DAILY [facility] Last Admin: 02/17/18 08:15 Dose: 1 tab Sodium Chloride (Flush - Normal Saline) 10 ml IVF Q12HR [facility] Last Admin: 02/17/18 08:16 Dose: Not Given Sodium Chloride (Flush - Normal Saline) 10 ml IVF PRN PRN PRN Reason: Saline Flush
--- NOTE | 2018-02-17 14:02 | PQF ---
CLINICAL DOCUMENTATION IMPROVEMENT CLARIFICATION FORM: ICD-10 Updated PLEASE DO AN ADDENDUM TO THE PROGRESS NOTE WITH ANY DOCUMENTATION UPDATES OR ADDITIONS AND CARRY THROUGH TO DC SUMMARY. THANK YOU. DATE: 02/17/18 ATTN: Dr. Mora Please exercise your independent, professional judgment in responding to the clarification form. Clinical indicators are provided on the bottom of this form for your review Diagnosis: SEPSIS ___yes Present on Admission (POA): [ X] Yes [ ] No [ ] Unable to determine Coding guidelines require hospitals to identify whether a diagnosis was present on admission (POA) or not. To accurately assign the appropriate POA indicator, this information must be clearly documented within the medical record. CLINICAL INDICATORS - SIGNS / SYMPTOMS / LABS ED RECORD 02/13: RESP. 24, O2 SAT 98 ON FACE MASK DOCTOR NOTES: AFTER DISCUSSION W/ RN AT [facility], PT DOES NOT TYPICALLY REQUIRE O2 AT HOME. SHE HAD A EPISODE TODAY OF ASSUMED ASPIRATION WHERE HER O2 SAT WAS IN THE LOW 80S. H&P 02/14: URINALYSIS WAS NITRITE POSITIVE & 4+ BACTERIA, 21-50 WBC'S PN 02/15: ACUTE RESPIRATORY FAILURE ASPIRATION PNEUMONITIS UTI. CULTURE E COLI QUINOLONE & AMP RESISTANT PN 02/16: SEPSIS E. COLI I URINE R TO LEVAQUIN - WILL CHANGE TO MEROPENEM TO COVER PNA + UTI RISKS: H&P 02/13: 82 YR OLD WHO IS A PENITENTIARY RESIDENT. ADVANCED DEMENTIA. PROBABLE ASPIRATION PNEUMONIA. UTI. TREATMENT: CPOE 02/14: LEVAQUIN 500MG IV Q 24 HR. DC'D 02/16 CPOE 02/16: MEROPENEM 1 GM IV Q 8 HRS Thank you, Jayne (This form is maintained as a part of the permanent medical record) 2014 [employer]. All Rights Reserved Jayne Ojeda RN, BSN [email or web address] Office: [phone] [facility]
[2018-02-17] MEDS: Sodium Chloride 0.9% 1,000 ML IV SCH (17:07)
[2018-02-17] MEDS: Lisinopril 10 MG TAB PO SCH (20:40)
[2018-02-17] MEDS: cloNIDine 0.2 MG TAB PO PRN (20:43)
[2018-02-18] MEDS: MEROPENEM 1 GM/50 ML 1 GM in Premix Bag 1 BAG IVPB SCH ×3 (01:14→17:44)
[2018-02-18] MEDS: hydrALAZINE 20 MG/ML VIAL SLOW IVP PRN (05:35)
[2018-02-18] MEDS: Sodium Chloride 0.9% 1,000 ML IV SCH (07:31)
[2018-02-18] MEDS: Ascorbic Acid 500 mg Chewable Tablet PO SCH ×2 (07:32→21:43)
[2018-02-18] MEDS: Famotidine 20 MG TAB PO SCH ×2 (07:32→21:44)
[2018-02-18] MEDS: guaiFENesin ER 600 MG TAB PO SCH ×2 (07:32→21:44)
[2018-02-18] MEDS: Multivit, Therapeutic 1 TAB PO SCH (07:32)
[2018-02-18] MEDS: Aspirin 81 mg Enteric Coated Tablet PO SCH (07:32)
[2018-02-18] MEDS: Carvedilol 25 MG TAB PO SCH ×2 (07:32→21:43)
[2018-02-18] MEDS: Enoxaparin Sodium 30 MG/0.3 ML SYRINGE SC SCH (07:33)
[2018-02-18] MEDS: Lisinopril 10 MG TAB PO SCH ×2 (07:33→21:43)
[2018-02-18] MEDS: ALPRAZolam 0.25 MG TAB PO SCH ×3 (07:33→21:44)
--- NOTE | 2018-02-18 15:22 | PDOC.PN ---
- Subjective Encounter Start Date: 02/18/18 Encounter Start Time: 15:21 Subjective: feels better. no new compliants - Objective Resuscitation Status: Resuscitation Status DNR:Do Not Resuscitate MAR Reviewed: Yes Vital Signs & Weight: Vital Signs (12 hours) Temp Pulse Resp BP BP Pulse Ox 02/18/18 11:42 97.7 F 71 18 190/48 H 93 L 02/18/18 08:30 94 L 02/18/18 08:00 97.8 F 84 18 02/18/18 07:34 97.8 F 84 18 182/64 H 90 L 02/18/18 07:33 182/64 H 02/18/18 06:32 72 165/79 H 02/18/18 05:35 72 203/79 H 02/18/18 04:00 72 20 203/74 H 92 L 02/18/18 03:59 90 L Weight Weight 142 lb 2 oz I&O: 02/17/18 02/18/18 02/19/18 06:59 06:59 06:59 Intake Total 1060 2316 240 Balance 1060 2316 240 Result Diagrams: 02/18/18 04:10 02/17/18 04:21 Additional Labs: Microbiology 02/13/18 19:19 Urine clean catch Urine Culture - Final Escherichia coli 02/13/18 20:48 Venous blood - Right Hand Blood Culture - Preliminary NO GROWTH AT 48 HOURS 02/13/18 20:43 Venous blood - Right Arm Blood Culture - Preliminary NO GROWTH AT 48 HOURS labs reviewed Phys Exam - Physical Examination Constitutional: NAD HEENT: PERRLA, moist MMs, sclera anicteric, oral pharynx no lesions Neck: no nodes, no JVD, supple, full ROM Respiratory: no wheezing, no rales, no rhonchi, clear to auscultation bilateral Cardiovascular: RRR, no significant murmur Gastrointestinal: soft, non-tender, no distention, positive bowel sounds Musculoskeletal: no edema, pulses present Neurological: non-focal, normal sensation, moves all 4 limbs Psychiatric: normal affect, A&O x 3 Skin: no rash Dx/Plan (1) Sepsis Code(s): A41.9 - SEPSIS, UNSPECIFIED ORGANISM Status: Acute (2) Uncontrolled hypertension Code(s): I10 - ESSENTIAL (PRIMARY) HYPERTENSION Status: Acute (3) Aspiration pneumonitis Code(s): J69.0 - PNEUMONITIS DUE TO INHALATION OF FOOD AND VOMIT Status: Acute (4) UTI (urinary tract infection) Status: Acute Qualifiers: Urinary tract infection type: acute cystitis Hematuria presence: without hematuria Qualified Code(s): N30.00 - Acute cystitis without hematuria Comment: culture E coli quinolone and amp resistant (5) Dementia Code(s): F03.90 - UNSPECIFIED DEMENTIA WITHOUT BEHAVIORAL DISTURBANCE Status: Chronic Qualifiers: Dementia type: unspecified type Dementia behavioral disturbance: without behavioral disturbance Qualified Code(s): F03.90 - Unspecified dementia without behavioral disturbance (6) GERD (gastroesophageal reflux disease) Code(s): K21.9 - GASTRO-ESOPHAGEAL REFLUX DISEASE WITHOUT ESOPHAGITIS Status: Chronic Qualifiers: Esophagitis presence: esophagitis presence not specified Qualified Code(s) : K21.9 - Gastro-esophageal reflux disease without esophagitis (7) HTN (hypertension) Code(s): I10 - ESSENTIAL (PRIMARY) HYPERTENSION Status: Chronic Qualifiers: Hypertension type: essential hypertension Qualified Code(s): I10 - Essential (primary) hypertension (8) Microcytic anemia Code(s): D50.9 - IRON DEFICIENCY ANEMIA, UNSPECIFIED Status: Acute - Plan PT/OT, respiratory therapy, incentive spirometry, out of bed/ambulate, DVT proph w/SCDs Cont meropenam for resistant UTI.martin PINEDA back to [place] tomorrow -: HD stable -: am labs -: home meds as below * . Review of Systems - Review of Systems Constitutional: negative: fever, chills, sweats, weakness, malaise, other Respiratory: negative: Cough, Dry, Shortness of Breath, Hemoptysis, SOB with Excertion, Pleuritic Pain, Sputum, Wheezing Cardiovascular: negative: chest pain, palpitations, orthopnea, paroxysmal nocturnal dyspnea, edema, light headedness, other Gastrointestinal: negative: Nausea, Vomiting, Abdominal Pain, Diarrhea, Constipation, Melena, Hematochezia, Other Genitourinary: negative: Dysuria, Frequency, Incontinence, Hematuria, Retention , Other Musculoskeletal: negative: Neck Pain, Shoulder Pain, Arm Pain, Back Pain, Hand Pain, Leg Pain, Foot Pain, Other Skin: negative: Rash, Lesions, Michael, Bruising, Other Neurological: negative: Weakness, Numbness, Incoordination, Change in Speech, Confusion, Seizures, Other - Medications/Allergies Allergies/Adverse Reactions: Allergies Allergy/AdvReac Type Severity Reaction Status Date / Time amlodipine Allergy Verified 01/01/18 11:11 cephalexin Allergy Verified 01/01/18 11:11 hydrochlorothiazide Allergy Verified 01/01/18 11:11 ibuprofen Allergy Verified 01/01/18 11:11 lansoprazole Allergy Verified 01/01/18 11:11 nitrofurantoin Allergy Verified 01/01/18 11:11 [From Macrodantin] Sulfa (Sulfonamide Allergy Verified 01/01/18 11:11 Antibiotics) sulfamethoxazole Allergy Verified 01/01/18 11:11 sulindac Allergy Verified 01/01/18 11:11 trimethoprim Allergy Verified 01/01/18 11:11 Medications: Current Medications Acetaminophen (Tylenol Er (8hr Arthritis Pain)) 650 mg PO Q6H PRN PRN Reason: Pain Albuterol/Ipratropium (Duoneb) 3 ml NEB Q4H PRN PRN Reason: SOB &/or Wheezing Alprazolam (Xanax) 0.25 mg PO TID ON LICENSE OF [facility] Last Admin: 02/18/18 15:04 Dose: 0.25 mg Ascorbic Acid (Vitamin C) 500 mg PO BID ON LICENSE OF [facility] Last Admin: 02/18/18 07:32 Dose: 500 mg Aspirin (Ecotrin) 81 mg PO QAM ON LICENSE OF [facility] Last Admin: 02/18/18 07:32 Dose: 81 mg Carvedilol (Coreg) 25 mg PO BID ON LICENSE OF [facility] Last Admin: 02/18/18 07:32 Dose: 25 mg Clonidine (Catapres) 0.2 mg PO Q4H PRN PRN Reason: Hypertension Last Admin: 02/17/18 20:43 Dose: 0.2 mg Enoxaparin Sodium (Lovenox) 30 mg SC 0900 ON LICENSE OF [facility] Last Admin: 02/18/18 07:33 Dose: 30 mg Famotidine (Pepcid) 20 mg PO BID ON LICENSE OF [facility] Last Admin: 02/18/18 07:32 Dose: 20 mg Guaifenesin (Mucinex) 600 mg PO Q12HR ON LICENSE OF [facility] Last Admin: 02/18/18 07:32 Dose: 600 mg Hydralazine HCl (Apresoline) 10 mg SLOW IVP Q4H PRN PRN Reason: Systolic BP > 180 Last Admin: 02/18/18 05:35 Dose: 10 mg Sodium Chloride (Normal Saline 0.9%) 1,000 mls @ 60 mls/hr IV .[id number] ON LICENSE OF [facility] Last Admin: 02/18/18 07:31 Dose: 1,000 mls Meropenem 1 gm/ Device 50 mls @ 100 mls/hr IVPB Q8H ON LICENSE OF [facility] Last Admin: 02/18/18 09:41 Dose: 50 mls Lisinopril (Zestril) 10 mg PO BID ON LICENSE OF [facility] Last Admin: 02/18/18 07:33 Dose: 10 mg Multivitamins (Theragran) 1 tab PO DAILY ON LICENSE OF [facility] Last Admin: 02/18/18 07:32 Dose: 1 tab Sodium Chloride (Flush - Normal Saline) 10 ml IVF Q12HR ON LICENSE OF [facility] Last Admin: 02/18/18 07:34 Dose: Not Given Sodium Chloride (Flush - Normal Saline) 10 ml IVF PRN PRN PRN Reason: Saline Flush
[2018-02-18] MEDS: cloNIDine 0.2 MG TAB PO PRN (17:44)
[2018-02-19] MEDS: MEROPENEM 1 GM/50 ML 1 GM in Premix Bag 1 BAG IVPB SCH ×2 (01:20→10:37)
[2018-02-19] MEDS: Sodium Chloride 0.9% 1,000 ML IV SCH (01:22)
[2018-02-19] MEDS: Multivit, Therapeutic 1 TAB PO SCH (09:28)
[2018-02-19] MEDS: Famotidine 20 MG TAB PO SCH (09:29)
[2018-02-19] MEDS: Ascorbic Acid 500 mg Chewable Tablet PO SCH (09:29)
[2018-02-19] MEDS: Carvedilol 25 MG TAB PO SCH (09:29)
[2018-02-19] MEDS: Lisinopril 10 MG TAB PO SCH (09:29)
[2018-02-19] MEDS: ALPRAZolam 0.25 MG TAB PO SCH ×2 (09:29→15:10)
[2018-02-19] MEDS: Enoxaparin Sodium 30 MG/0.3 ML SYRINGE SC SCH (09:31)
[2018-02-19] MEDS: Aspirin 81 mg Enteric Coated Tablet PO SCH (09:31)
[2018-02-19] MEDS: guaiFENesin ER 600 MG TAB PO SCH (09:32)
[2018-02-19] MEDS ORDERED: Furosemide 20 MG/2 ML VIAL SLOW IVP SCH (12:00)
--- NOTE | 2018-02-19 13:26 | RAD ---
AP CHEST: History: Aspiration pneumonia. Date: 02-19-18 Comparison: 02-16-18 FINDINGS: AP chest demonstrates loss of the left lung hemidiaphragm interface compatible with a left sided pleu ral effusion. There may be some component of left lower lobe consolidation as well. A tiny right sided pleural effusion is also seen. Cardiomegaly is noted. Left shoulder degenerative changes and osteophytes are seen. IMPRESSION: Continued area of left lung base opacity. Differential diagnosis includes pneumonia and/or effusion. POS: [facility]
[2018-02-19 16:34] VITALS: TEMP 98
[2018-02-19 17:05] VITALS: BP 146/83
--- NOTE | 2018-02-20 00:47 | DIS ---
DATE OF ADMISSION: 02/13/2018 DATE OF DISCHARGE: 02/19/2018 CONDITION AT THE TIME OF DISCHARGE: Stable and improved. DISCHARGE DISPOSITION: Back to intermediate where she is a permanent resident to [facility]. DISCHARGE DIAGNOSES: 1. Pneumonia, aspiration versus healthcare-associated pneumonia. 2. Urinary tract infection with resistant Escherichia coli. 3. Sepsis. 4. Uncontrolled hypertension, resolved. 5. Dementia. 6. Gastroesophageal reflux disease. 7. Hypertension. 8. Microcytic anemia, chronic. DISCHARGE MEDICATIONS: Resume home medications as per the admission H and P. New medication, lisino pril 10 mg p.o. b.i.d., Florastor 250 mg p.o. daily for 10 days, levofloxacin 500 mg p.o. daily for 7 more days. PRIMARY CARE PHYSICIAN: Dr. Amparo Montana. INHOUSE CONSULTATIONS: None. PROCEDURES: Multiple chest x-rays. HISTORY OF PRESENT ILLNESS: Ms. Douglas is a very pleasant 82-year-old intermediate resident with hi story of hypertension, dyslipidemia, and some dementia who presented to the emergency room with compl aints of shortness of breath. She was feeling bad and was having insomnia and trouble sleeping. Her chest x-ray upon presentation was consistent with infiltrating the lower lobe or excess fluid. She has had a history of dysphagia, so there was a concern for aspiration versus healthcare-associated pn eumonia. Her urinalysis was also consistent with possible urinary tract infection with multiple wbc' s and bacteria. She was started on empiric antibiotics. Cultures were sent and she was admitted for further evaluation and care. Please see admission history and physical for further details. HOSPITAL COURSE: The patient remained hemodynamically stable throughout the hospitalization. Her cu lture results came back positive for E. coli in her urine, which was resistant to ampicillin and levo floxacin. Her antibiotics were adjusted and she was given meropenem for 72 hours by IV. Her symptom s have resolved. Her hemoglobin has remained stable, neutrophilia has improved. She is clinically b isreal. Chest x-ray was repeated prior to discharge and she was weaned off the oxygen. Chest x-ray w as negative for any new findings. Some resolution of the pneumonia is seen. She was continued on di et with aspiration risk as recommended by the speech pathologist. She was seen and examined on the day of discharge and is at baseline. Her antibiotic was changed to levofloxacin for coverage of the pneumonia. Due to multiple drug allergies including nitrofurantoin and Bactrim and multiple resistance of the E. coli in the urine, levofloxacin would not be a perfect antibiotic for her urine, but she has been treated adequately with IV meropenem while in the hospital . PHYSICAL EXAMINATION: VITAL SIGNS: This morning vital signs: Temperature 97.8, pulse of 62, respirations 18, saturating 9 3-94% on room air, blood pressure 146/68. GENERAL: No acute distress, awake, alert, oriented x3. CHEST: Clear to auscultation with some decreased breath sounds at left lung base, otherwise no rhonc hi or rales. HEART: Rate and rhythm is regular without any murmurs or gallops. LABORATORY DATA: Blood culture negative x2. DISCHARGE INSTRUCTIONS: She will follow up with primary care physician in 2-3 weeks. She was discha rged back to intermediate in a hemodynamically stable condition. Total time spent in the discharge was 32 minutes.
--- NOTE | 2018-03-01 12:17 | EKG ---
Test Reason : SOB Blood Pressure : / mmHG Vent. Rate : 066 BPM Atrial Rate : 066 BPM P-R Int : 140 ms QRS Dur : 088 ms QT Int : 434 ms P-R-T Axes : 049 041 059 degrees QTc Int : 454 ms Normal sinus rhythm Possible Left atrial enlargement Borderline ECG Confirmed by SHILOH JORDAN ([id number]), tape editor MINNIE VÁZQUEZ ([id number]) on 03/01/2018 12:17:20 PM Referred By: Confirmed By:SHILOH JORDAN
== END 2018-02-19 17:07 | DRG 871 ==
LOC: ERS 17:37 → T4-A 21:05
PROVIDERS: ADMIT Internal Medicine; ATTEND Internal Medicine
DX: A41.9 Sepsis, unspecified organism (principal); J69.0 Pneumonitis due to inhalation of food and vomit; J18.9 Pneumonia, unspecified organism; N30.90 Cystitis, unspecified without hematuria; B96.20 Unspecified Escherichia coli [E. coli] as the cause of diseases classified elsewhere; I10 Essential (primary) hypertension; E78.5 Hyperlipidemia, unspecified; K21.9 Gastro-esophageal reflux disease without esophagitis; D50.9 Iron deficiency anemia, unspecified; F03.90 Unspecified dementia, unspecified severity, without behavioral disturbance, psychotic disturbance, mood disturbance, and anxiety; R13.10 Dysphagia, unspecified; R47.02 Dysphasia; Z66 Do not resuscitate; Z16.11 Resistance to penicillins; Z16.23 Resistance to quinolones and fluoroquinolones; Y95 Nosocomial condition; Z79.82 Long term (current) use of aspirin; Z88.1 Allergy status to other antibiotic agents; Z88.2 Allergy status to sulfonamides
CPT/HCPCS: 36415; 51701; 71045; 80048; 80053; 81003; 81015; 82550; 82553; 83735; 83880; 84484; 85014; 85018; 85025; 87040; 87077; 87086; 87186; 90471; 90670; 93005; 94760; 96365; 96375; 96376; A4216; A4353; G0009; G8978-GP-CM; G8979-GP-CK; G8987-GO-CM; G8988-GO-CK; G8996-GN-CJ; G8997-GN-CJ; J0360; J1650; J1940; J1956; J2185; J2543; J7050; J7620

== ENCOUNTER 2018-04-01 15:16 | Inpatient (IN) | payer MEDICARE, MEDICAID ==
[~2018-04-01 15:16] MED LIST: Heparin 1,000 UNITS/ML VIAL ONE
--- NOTE | 2018-04-01 17:59 | RAD ---
LEFT HAND TWO VIEWS: 04/01/18 HISTORY: Hand pain. Ulceration. FINDINGS/IMPRESSION: Exam is of very limited diagnostic value due to flexion of the fingers and hands and overlying artifa ct. Some chronic erosions involve the visible metacarpal heads. Osseous structures are markedly demin eralized. With particular attention to the middle and ring fingers, there is subtle erosion involving the later al margin of the distal shaft proximal phalanx ring finger extending to the neck. This may reflect ag gressive erosion related to the historically stated pressure ulceration. Osteomyelitis could have thi s appearance. POS: [facility]
[2018-04-01 18:00] LABS: #Eosinphils 0.2 thou/uL (0.0-0.7); #Lymphocytes 1.6 thou/uL (1.20-3.40); #Monocytes 0.7 thou/uL (0.11-0.59); #Neutrophils 5.8 thou/uL (1.40-6.50); %Basophils 0.3 % (0.0-1.0); %Eosinophils 1.9 % (0.0-10.0); %Lymphocytes 19.7 % (21.0-51.0); %Monocytes 8.3 % (0.0-10.0); %Neutrophils 69.8 % (42.0-75.0); Hemoglobin 10.6 g/dL (12.0-16.0); Mean Corpuscular HGB CONC 31.9 g/dL (32.0-36.0); Mean Corpuscular Hemoglobin 25.7 pg (27.0-31.0); Mean Corpuscular Volume 80.6 fL (78.0-98.0); Platelet Count 253 thou/uL (130-400); RBC Distribution Width 15.8 % (11.5-14.5); White Blood Cell (WBC) Count 8.3 thou/uL (4.8-10.8)
[2018-04-01 18:28] LABS: ALT (SGPT) 19 U/L (8-55); AST (SGOT) 16 U/L (5-34); Albumin 3.5 g/dL (3.4-4.8); Alkaline Phosphatase 87 U/L (40-150); Anion Gap 14 mmol/L (10-20); BUN (Urea Nitrogen) 31 mg/dL (9.8-20.1); Bilirubin, Total 0.2 mg/dL (0.2-1.2); Calc. Creatinine Clearance 0 mL/min (70-130); Carbon Dioxide 24 mmol/L (23-31); Chloride 103 mmol/L (98-107); Estimated GFR-MDRD 61; Globulin 3.6 g/dL (2.4-3.5); Glucose 102 mg/dL (83-110); Potassium 4.1 mmol/L (3.5-5.1); Protein, Total 7.1 g/dL (6.0-8.3); Sodium 137 mmol/L (136-145)
[2018-04-01] MEDS ORDERED: Ondansetron HCl/PF 4 MG/2 ML Vial IVP PRN (21:31)
[2018-04-01] MEDS ORDERED: Acetaminophen 325 MG TAB PO PRN (21:31)
[2018-04-01] MEDS ORDERED: Dextrose 5% in Water 1,000 ML IV PRN (21:36)
[2018-04-01] MEDS ORDERED: HumaLOG 300 UNITS/3 ML VIAL SC PRN (21:36)
[2018-04-01] MEDS ORDERED: Dextrose 50% Abboject 50 ML SYRINGE SLOW IVP PRN (21:36)
[2018-04-02] MEDS: Sodium Chloride 0.9% 1,000 ML IV SCH ×3 (00:57→23:26)
[2018-04-02] MEDS: cloNIDine 0.2 MG TAB PO PRN (00:58)
[2018-04-02] MEDS: ALPRAZolam 0.25 MG TAB PO PRN (02:25)
[2018-04-02] MEDS: Piperacillin/Tazobactam 3.375 GM in Sodium Chloride 0.9% 100 ML IVPB SCH ×4 (03:23→22:03)
[2018-04-02] MEDS ORDERED: Senokot S 8.6-50 MG TAB PO PRN (05:19)
[2018-04-02] MEDS ORDERED: Albuterol Sulfate 2.5 mg/3 ml Neb NEB PRN (05:19)
[2018-04-02] MEDS ORDERED: Acetaminophen/Codeine 30-300mg Tablet PO PRN (05:19)
[2018-04-02] MEDS ORDERED: Piperacillin/Tazobactam 3.375 GM in Sodium Chloride 0.9% 100 ML IVPB SCH (06:00)
[2018-04-02 07:05] LABS: #Eosinphils 0.2 thou/uL (0.0-0.7); #Monocytes 0.7 thou/uL (0.11-0.59); %Basophils 0.6 % (0.0-1.0); %Eosinophils 2.4 % (0.0-10.0); %Lymphocytes 12.5 % (21.0-51.0); %Monocytes 9.2 % (0.0-10.0); %Neutrophils 75.3 % (42.0-75.0); Hemoglobin 9.8 g/dL (12.0-16.0); Mean Corpuscular HGB CONC 31.2 g/dL (32.0-36.0); Mean Corpuscular Volume 80.3 fL (78.0-98.0); Mean Platelet Volume 8.2 fL (7.4-10.4); Platelet Count 250 thou/uL (130-400); RBC Distribution Width 15.9 % (11.5-14.5); Red Blood Cell (RBC) Count 3.93 mill/uL (4.20-5.40)
[2018-04-02 07:11] LABS: Anion Gap 11 mmol/L (10-20); BUN (Urea Nitrogen) 24 mg/dL (9.8-20.1); Calc. Creatinine Clearance 48 mL/min (70-130); Calcium 8.4 mg/dL (7.8-10.44); Carbon Dioxide 26 mmol/L (23-31); Chloride 103 mmol/L (98-107); Estimated GFR-MDRD 69; Glucose 95 mg/dL (83-110); Potassium 4.1 mmol/L (3.5-5.1); Sodium 136 mmol/L (136-145)
[2018-04-02] MEDS ORDERED: Mag-Al 1200 mg/1200 mg/30 ML UDCUP PO PRN (07:46)
[2018-04-02] MEDS ORDERED: Diabetic Tussin 200 MG/10 ML UDCUP PO PRN (07:46)
[2018-04-02] MEDS ORDERED: Chloraseptic Spray 180 ml Bottle PO PRN (07:46)
[2018-04-02] MEDS ORDERED: Ondansetron ODT 4 MG TAB PO PRN (07:46)
[2018-04-02] MEDS ORDERED: Bisacodyl 10 MG SUPP PR PRN (07:46)
[2018-04-02] MEDS ORDERED: Loratadine 10 MG TAB PO PRN (07:46)
[2018-04-02] MEDS ORDERED: Milk Of Magnesia 30 ML UDCUP PO PRN (07:46)
[2018-04-02] MEDS ORDERED: Loperamide HCl 2 MG CAP PO PRN (07:46)
[2018-04-02] MEDS ORDERED: Artificial Tears 18 DROP/0.9 ML EA EYE PRN (07:46)
[2018-04-02] MEDS ORDERED: Eucerin (Mineral Oil/Petrolatum,White) 30 gm Jar TOP PRN (07:46)
[2018-04-02] MEDS ORDERED: Sodium Chloride 0.65% Nasal 44 ML BOT EA NARE PRN (07:46)
[2018-04-02] MEDS ORDERED: Senokot 8.6 MG TAB PO PRN (07:46)
--- NOTE | 2018-04-02 08:41 | HP ---
PRIMARY CARE PHYSICIAN: Amparo Montana D.O. CODE STATUS: DNR. This has been verified with residential facility, i.e., RN and Oncology TIME OF EVALUATION: Around 8:00 p.m. CHIEF COMPLAINT: Left fourth finger ulcer. HISTORY OF PRESENT ILLNESS: Unable to obtain information from the patient due to underlying dementia , information has been gathered from records and ER staff. This is an 82 years male patient with pas t medical history of an epilepsy, GERD, hyperlipidemia, history of recurrent urinary tract infection, came to the hospital, referred from nursing homes. The patient was having pain, and nonhealing pres sure ulcer between the third and fourth finger as noted, looks like the patient had surgery 3 months ago in the left hand, patient has also underlying dementia, symptoms are severe, patient complaining continued severe pain, no alleviating factors. He has been started on broad spectrum antibiotics and will continue for now. Might need evaluation from Surgery for further treatment. REVIEW OF SYSTEMS: Unable to obtain, patient has dementia, continue repeating the same phrase during my review. PAST MEDICAL HISTORY: As mentioned in the HPI. FAMILY HISTORY: Unable to obtain due to patient being confused. KNOWN ALLERGIES: AMLODIPINE, CEPHALEXIN, HYDROCHLOROTHIAZIDE, IBUPROFEN, LANSOPRAZOLE, MACRODANTIN, SULFA, SULINDAC and TRIMETHOPRIM. REPORTED MEDICATIONS: Coreg, aspirin, Xanax, DuoNeb, Tylenol, Senna Plus, doxycycline, lisinopril, C lomipramine, multivitamin. PHYSICAL EXAMINATION: VITAL SIGNS: On presentation, heart rate 70, respiratory rate was 40, temperature 97.5, pain 10/10, oxygen saturation 100 on room air, blood pressure 160/86. GENERAL APPEARANCE: The patient continue repeating the same phrase during my examination. HEENT: Eyes: Normal conjunctivae. Moist oral mucosa. Anicteric. NECK: No JVD. RESPIRATORY: Bilateral air entry. No rales, no wheezing. Symmetric expansion. CARDIOVASCULAR: Normal rate, regular rhythm. No murmurs, no gallop. No edema. ABDOMEN: Soft, normal bowel sounds. MUSCULOSKELETAL: The patient has left third and fourth finger with nonhealing ulcer, with decreased range of motion and tenderness, also redness. SKIN: Warm and intact. No pallor, no rash or redness except for the findings mentioned in the muscu loskeletal. Peripheral pulses are present. Capillary refill seems to be intact. NEUROLOGIC: Baseline sensory. No evidence of any new focal weakness. Baseline speech. Cranial ner ves seem to be intact. PSYCHIATRIC: The patient is in good mood. No anxiety, oriented, optimal judgement. X-ray of the hand was done. The patient has very limited diagnostic value due to flexion of the fing ers and hands and overlying artifacts, some chronic eruption of the visible metacarpal heads. Osseou s structures are markedly demineralized with particular attention to the middle and ring fingers. Th ere is subtle erosion involving the lateral margin of the distal shaft proximal phalanx ring finger e xtending to the neck. This may reflect aggressive erosion related to historically stated pressure ul ceration and osteomyelitis could have this appearance. LABORATORY DATA: Reviewed. White count 8.3, hemoglobin 10.6, MCV 80, platelet count 253. Chemistry : Sodium 137, potassium 4.1, chloride 103, carbon dioxide 24, anion gap 14, BUN 31, creatinine 0.8, GFR 61, glucose 102. Lactic acid 0.8, calcium 9, total bilirubin 0.2, AST 16, ALT 19, alkaline phosp hatase 87, serum total protein 7.1. ASSESSMENT AND PLAN: The patient will be placed in the hospital with the following medical problems: 1. 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 Gardner's consultation in the morning for help with antibiotics regarding choices and duration of treatment. 2. Underlying dementia, patient will need supportive care as an inpatient. 3. Chronic normocytic anemia, hemoglobin is 10, and is stable, chronic, will monitor and adjust as n eeded. 4. Uncontrolled hypertension, reconciled home medications, systolic 142, diastolic 113, adjust the t reatment as needed. May be secondary to underlying pain. 5. Intractable pain, just pain medications as needed. 6. Hyperlipidemia, reconcile home medications, low cholesterol diet is advised. 7. Gastroesophageal reflux disease, reconcile home medications. 8. History of anxiety, reconcile home medications. 9. Deep venous thrombosis prophylaxis.
[2018-04-02] MEDS: Enoxaparin Sodium 40 MG/0.4 ML SYRINGE SC SCH (09:01)
[2018-04-02] MEDS: Famotidine 20 MG TAB PO SCH ×2 (09:02→20:41)
[2018-04-02] MEDS: Multivitamin W/ Minerals 1 TAB PO SCH (09:02)
[2018-04-02] MEDS: Saccharomyces boulardii 250 MG CAP PO SCH (09:02)
[2018-04-02] MEDS: Lisinopril 20 MG TAB PO SCH ×2 (09:02→20:41)
[2018-04-02] MEDS: Acetaminophen/Codeine 30-300mg Tablet PO SCH ×2 (09:02→20:39)
[2018-04-02] MEDS: Aspirin 81 mg Enteric Coated Tablet PO SCH (09:03)
[2018-04-02] MEDS: Carvedilol 25 MG TAB PO SCH ×2 (09:03→20:41)
[2018-04-02] MEDS: ALPRAZolam 0.25 MG TAB PO SCH ×3 (09:03→20:40)
--- NOTE | 2018-04-02 11:02 | PDOC.PN ---
- Subjective Encounter Start Date: 04/02/18 Encounter Start Time: 07:10 -: old records requested/rev Patient seen and examined. No new complaints. No overnight events - Objective Resuscitation Status: Resuscitation Status DNR:Do Not Resuscitate MAR Reviewed: Yes Vital Signs & Weight: Vital Signs (12 hours) Temp Pulse Resp BP BP Pulse Ox 04/02/18 09:02 170/72 H 04/02/18 07:11 98.4 F 73 16 170/72 H 94 L 04/02/18 03:27 68 16 140/62 04/02/18 02:10 210/88 H 04/02/18 00:58 224/98 H 04/02/18 00:00 97.7 F 72 20 224/98 H 97 04/01/18 23:45 97.7 F 72 20 97 Weight Weight 125 lb 9.6 oz I&O: 04/01/18 04/02/18 04/03/18 06:59 06:59 06:59 Intake Total 550 Balance 550 Result Diagrams: 04/02/18 06:27 04/02/18 06:27 Additional Labs: Accuchecks 04/02/18 05:25 POC Glucose 99 Radiology Reviewed by me: Yes (xray hand) Phys Exam - Physical Examination Constitutional: NAD HEENT: PERRLA, moist MMs, sclera anicteric Neck: no JVD, supple Respiratory: no wheezing, no rales, no rhonchi Cardiovascular: RRR, no significant murmur, no rub Gastrointestinal: soft, non-tender, no distention, positive bowel sounds contracture hand, cellulitis with drainage noted on left hand between 3 and 4th finger Lymphatic: no nodes Psychiatric: normal affect, A&O x 3 Skin: no rash, normal turgor Dx/Plan (1) Cellulitis of left finger Code(s): L03.012 - CELLULITIS OF LEFT FINGER Status: Acute (2) Anemia, normocytic normochromic Code(s): D64.9 - ANEMIA, UNSPECIFIED Status: Chronic (3) Anxiety and depression Code(s): F41.9 - ANXIETY DISORDER, UNSPECIFIED; F32.9 - MAJOR DEPRESSIVE DISORDER, SINGLE EPISODE, UNSPECIFIED Status: Chronic (4) Dementia Code(s): F03.90 - UNSPECIFIED DEMENTIA WITHOUT BEHAVIORAL DISTURBANCE Status: Chronic Qualifiers: (5) GERD (gastroesophageal reflux disease) Code(s): K21.9 - GASTRO-ESOPHAGEAL REFLUX DISEASE WITHOUT ESOPHAGITIS Status: Chronic Qualifiers: (6) HTN (hypertension) Code(s): I10 - ESSENTIAL (PRIMARY) HYPERTENSION Status: Chronic Qualifiers: - Plan cont current plan of care, continue antibiotics * continue vancomycin and zosyn * consult hand surgeon * wound care * start selected home medication * continue following medication * symptomatic treatment as below. Review of Systems - Review of Systems Eyes: negative: Pain, Vision Change, Conjunctivae Inflammation, Eyelid Inflammation, Redness, Other ENT: negative: Ear Pain, Ear Discharge, Nose Pain, Nose Discharge, Nose Congestion, Mouth Pain, Mouth Swelling, Throat Pain, Throat Swelling, Other Respiratory: negative: Cough, Dry, Shortness of Breath, Hemoptysis, SOB with Excertion, Pleuritic Pain, Sputum, Wheezing Cardiovascular: negative: chest pain, palpitations, orthopnea, paroxysmal nocturnal dyspnea, edema, light headedness, other Gastrointestinal: negative: Nausea, Vomiting, Abdominal Pain, Diarrhea, Constipation, Melena, Hematochezia, Other Genitourinary: negative: Dysuria, Frequency, Incontinence, Hematuria, Retention , Other Musculoskeletal: Hand Pain. negative: Neck Pain, Shoulder Pain, Arm Pain, Back Pain, Leg Pain, Foot Pain, Other - Medications/Allergies Allergies/Adverse Reactions: Allergies Allergy/AdvReac Type Severity Reaction Status Date / Time amlodipine Allergy Verified 01/01/18 11:11 cephalexin Allergy Verified 01/01/18 11:11 hydrochlorothiazide Allergy Verified 01/01/18 11:11 ibuprofen Allergy Verified 01/01/18 11:11 lansoprazole Allergy Verified 01/01/18 11:11 nitrofurantoin Allergy Verified 01/01/18 11:11 [From Macrodantin] Sulfa (Sulfonamide Allergy Verified 01/01/18 11:11 Antibiotics) sulfamethoxazole Allergy Verified 01/01/18 11:11 sulindac Allergy Verified 01/01/18 11:11 trimethoprim Allergy Verified 01/01/18 11:11 Medications: Current Medications Acetaminophen (Tylenol) 650 mg PO Q4H PRN PRN Reason: Headache/Fever or Pain Last Admin: 04/02/18 01:07 Dose: 650 mg Acetaminophen/Codeine Phosphate (Tylenol #3) 1 tab PO Q12HR [facility] Last Admin: 04/02/18 09:02 Dose: 1 tab Acetaminophen/Codeine Phosphate (Tylenol #3) 1 tab PO Q4H PRN PRN Reason: Pain Al Hydroxide/Mg Hydroxide (Maalox) 15 ml PO Q4H PRN PRN Reason: Heartburn or Indigestion Albuterol Sulfate (Ventolin) 2.5 mg NEB Q4H PRN PRN Reason: Dyspnea/Wheezing/SOB Alprazolam (Xanax) 0.25 mg PO QIDPRN PRN PRN Reason: Anxiety Last Admin: 04/02/18 02:25 Dose: 0.25 mg Alprazolam (Xanax) 0.25 mg PO TID [facility] Last Admin: 04/02/18 09:03 Dose: 0.25 mg Artificial Tears (Tears Naturale) 0 drop EA EYE PRN PRN PRN Reason: Dry Eyes Aspirin (Ecotrin) 81 mg PO QAM [facility] Last Admin: 04/02/18 09:03 Dose: 81 mg Bisacodyl (Dulcolax) 10 mg [place] DAILYPRN PRN PRN Reason: Constipation Carvedilol (Coreg) 25 mg PO BID [facility] Last Admin: 04/02/18 09:03 Dose: 25 mg Clonidine (Catapres) 0.2 mg PO Q4H PRN PRN Reason: Hypertension Last Admin: 04/02/18 00:58 Dose: 0.2 mg Clonidine (Catapres) 0.2 mg PO HS [facility] Dextrose/Water (Dextrose 50%) 25 gm SLOW IVP PRN PRN PRN Reason: Hypoglycemia Enoxaparin Sodium (Lovenox) 40 mg SC 0900 [facility] Last Admin: 04/02/18 09:01 Dose: 40 mg Famotidine (Pepcid) 20 mg PO BID [facility] Last Admin: 04/02/18 09:02 Dose: 20 mg Glucagon (Glucagon) 1 mg IM PRN PRN PRN Reason: Hypoglycemia Guaifenesin (Robitussin Sf) 200 mg PO Q4H PRN PRN Reason: Cough Hydralazine HCl (Apresoline) 10 mg SLOW IVP Q4H PRN PRN Reason: Systolic BP > 180 Sodium Chloride (Normal Saline 0.9%) 1,000 mls @ 50 mls/hr IV .Q20H [facility] Last Admin: 04/02/18 00:57 Dose: 1,000 mls Dextrose/Water (D5w) 1,000 mls @ 0 mls/hr IV .Q0M PRN PRN Reason: Hypoglycemia Vancomycin HCl 750 mg/ Sodium (Chloride) 250 mls @ 250 mls/hr IVPB Q24HR@1800 [facility] Piperacillin Sod/Tazobactam (Sod 3.375 gm/ Sodium Chloride) 100 mls @ 200 mls/ hr IVPB 0400,1000,1600,2200 [facility] Last Admin: 04/02/18 09:04 Dose: 100 mls Insulin Human Lispro (Humalog) 0 units SC .MILD SLIDING SCALE PRN PRN Reason: Mild Correctional Scale Iron/Minerals/Multivitamins (Theragran M) 1 tab PO DAILY [facility] Last Admin: 04/02/18 09:02 Dose: 1 tab Lisinopril (Zestril) 20 mg PO BID [facility] Last Admin: 04/02/18 09:02 Dose: 20 mg Loperamide HCl (Imodium) 2 mg PO PRN PRN PRN Reason: Diarrhea/Loose Stools Loratadine (Claritin) 10 mg PO DAILYPRN PRN PRN Reason: Sinus Symptoms Magnesium Hydroxide (Milk Of Magnesium) 30 ml PO DAILYPRN PRN PRN Reason: Constipation Mineral Oil/White Petrolatum (Eucerin Cream) 0 gm TOP BIDPRN PRN PRN Reason: Dry Skin Miscellaneous Medication (Pharmacy To Dose) 0 each IVPB PRN PRN PRN Reason: [facility] Pharmacy to Dose Ondansetron HCl (Zofran) 4 mg IVP Q6H PRN PRN Reason: Nausea/Vomiting Ondansetron HCl (Zofran Odt) 4 mg PO Q6H PRN PRN Reason: Nausea/Vomiting Phenol (Chloraseptic [place] 180 Ml Bot) 0 ml PO PRN PRN PRN Reason: Sore Throat Saccharomyces Boulardii (Florastor) 250 mg PO DAILY [facility] Last Admin: 04/02/18 09:02 Dose: 250 mg Senna (Senokot) 2 tab PO HSPRN PRN PRN Reason: Constipation Senna/Docusate Sodium (Senokot S) 1 tab PO BIDPRN PRN PRN Reason: CONSTIPATION Sodium Chloride ([place] Nasal [place] 0.65%) 0 ml EA NARE QIDPRN PRN PRN Reason: Nasal Congestion Tramadol HCl (Ultram) 50 mg PO Q8H PRN PRN Reason: HTN
[2018-04-02 11:49] VITALS: BMI 22.2
[2018-04-02] MEDS: traMADol HCl 50 MG TAB PO PRN (16:03)
[2018-04-02] MEDS ORDERED: Vancomycin HCl 750 MG in Sodium Chloride 0.9% 250 ML 250 ML IVPB SCH (18:00)
[2018-04-02] MEDS: cloNIDine 0.2 MG TAB PO SCH (20:41)
[2018-04-02] MEDS ORDERED: CLOMIPRAMINE HCL PO SCH (21:00)
[2018-04-03] MEDS: hydrALAZINE 20 MG/ML VIAL SLOW IVP PRN (04:26)
[2018-04-03] MEDS: Piperacillin/Tazobactam 3.375 GM in Sodium Chloride 0.9% 100 ML IVPB SCH ×4 (04:28→22:05)
[2018-04-03 06:30] LABS: Anion Gap 10 mmol/L (10-20); BUN (Urea Nitrogen) 17 mg/dL (9.8-20.1); CRP (Inflammatory) 3.79 mg/dL (= or < 0.5); Calc. Creatinine Clearance 49 mL/min (70-130); Calcium 8.6 mg/dL (7.8-10.44); Carbon Dioxide 27 mmol/L (23-31); Chloride 107 mmol/L (98-107); Estimated GFR-MDRD 70; Glucose 95 mg/dL (83-110); Potassium 3.9 mmol/L (3.5-5.1); Sodium 140 mmol/L (136-145)
[2018-04-03 07:12] LABS: #Eosinphils 0.4 thou/uL (0.0-0.7); #Lymphocytes 1.1 thou/uL (1.20-3.40); #Monocytes 0.5 thou/uL (0.11-0.59); #Neutrophils 4.4 thou/uL (1.40-6.50); %Basophils 0.6 % (0.0-1.0); %Eosinophils 6.6 % (0.0-10.0); %Monocytes 7.9 % (0.0-10.0); %Neutrophils 67.9 % (42.0-75.0); Hemoglobin 10.1 g/dL (12.0-16.0); Mean Corpuscular HGB CONC 32.4 g/dL (32.0-36.0); Mean Corpuscular Volume 80.3 fL (78.0-98.0); Mean Platelet Volume 8.6 fL (7.4-10.4); Platelet Count 244 thou/uL (130-400); Red Blood Cell (RBC) Count 3.87 mill/uL (4.20-5.40); White Blood Cell (WBC) Count 6.5 thou/uL (4.8-10.8)
[2018-04-03] MEDS: Enoxaparin Sodium 40 MG/0.4 ML SYRINGE SC SCH (09:39)
[2018-04-03] MEDS: Lisinopril 20 MG TAB PO SCH ×2 (09:40→20:12)
[2018-04-03] MEDS: Famotidine 20 MG TAB PO SCH ×2 (09:41→20:12)
[2018-04-03] MEDS: Saccharomyces boulardii 250 MG CAP PO SCH (09:41)
[2018-04-03] MEDS: Carvedilol 25 MG TAB PO SCH ×2 (09:41→20:12)
[2018-04-03] MEDS: Multivitamin W/ Minerals 1 TAB PO SCH (09:41)
[2018-04-03] MEDS: Acetaminophen/Codeine 30-300mg Tablet PO SCH ×2 (09:42→20:13)
[2018-04-03] MEDS: Aspirin 81 mg Enteric Coated Tablet PO SCH (09:42)
[2018-04-03] MEDS: ALPRAZolam 0.25 MG TAB PO SCH ×3 (09:42→20:13)
[2018-04-03] MEDS: traMADol HCl 50 MG TAB PO PRN (10:46)
--- NOTE | 2018-04-03 12:28 | PDOC.PN ---
- Subjective Encounter Start Date: 04/03/18 Encounter Start Time: 07:15 -: old records requested/rev pt reports that her pain is not controlled with current pain meds - Objective Resuscitation Status: Resuscitation Status DNR:Do Not Resuscitate MAR Reviewed: Yes Vital Signs & Weight: Vital Signs (12 hours) Temp Pulse Resp BP BP Pulse Ox 04/03/18 09:40 188/79 H 04/03/18 08:00 98.3 F 74 22 H 188/79 H 95 04/03/18 04:26 64 182/78 H 04/03/18 04:00 98.0 F 64 16 182/78 H 93 L Weight Admit Weight 125 lb 9.6 oz Weight 125 lb 9.6 oz I&O: 04/02/18 04/03/18 04/04/18 06:59 06:59 06:59 Intake Total 550 120 Balance 550 120 Result Diagrams: 04/03/18 05:56 04/03/18 05:55 Additional Labs: Accuchecks 04/03/18 04/03/18 04/02/18 11:16 05:32 19:47 POC Glucose 103 91 88 04/02/18 16:57 POC Glucose 118 H Phys Exam - Physical Examination Constitutional: NAD HEENT: PERRLA, moist MMs, sclera anicteric Neck: no JVD, supple Respiratory: no wheezing, no rales, no rhonchi Cardiovascular: RRR, no significant murmur, no rub Gastrointestinal: soft, non-tender, no distention, positive bowel sounds Musculoskeletal: no edema, pulses present contracture of left hand, with dressing Neurological: moves all 4 limbs Lymphatic: no nodes Psychiatric: normal affect Skin: no rash, normal turgor Dx/Plan (1) Cellulitis of left finger Code(s): L03.012 - CELLULITIS OF LEFT FINGER Status: Acute (2) Anemia, normocytic normochromic Code(s): D64.9 - ANEMIA, UNSPECIFIED Status: Chronic (3) Anxiety and depression Code(s): F41.9 - ANXIETY DISORDER, UNSPECIFIED; F32.9 - MAJOR DEPRESSIVE DISORDER, SINGLE EPISODE, UNSPECIFIED Status: Chronic (4) Dementia Code(s): F03.90 - UNSPECIFIED DEMENTIA WITHOUT BEHAVIORAL DISTURBANCE Status: Chronic Qualifiers: (5) GERD (gastroesophageal reflux disease) Code(s): K21.9 - GASTRO-ESOPHAGEAL REFLUX DISEASE WITHOUT ESOPHAGITIS Status: Chronic Qualifiers: (6) HTN (hypertension) Code(s): I10 - ESSENTIAL (PRIMARY) HYPERTENSION Status: Chronic Qualifiers: - Plan cont current plan of care, continue antibiotics * medication reviewed as below * symptomatic treatment * wound care * add morphin for pain control * continue vancomycin and zosyn * follow wound culture. Review of Systems - Review of Systems Eyes: negative: Pain, Vision Change, Conjunctivae Inflammation, Eyelid Inflammation, Redness, Other ENT: negative: Ear Pain, Ear Discharge, Nose Pain, Nose Discharge, Nose Congestion, Mouth Pain, Mouth Swelling, Throat Pain, Throat Swelling, Other Respiratory: negative: Cough, Dry, Shortness of Breath, Hemoptysis, SOB with Excertion, Pleuritic Pain, Sputum, Wheezing Cardiovascular: negative: chest pain, palpitations, orthopnea, paroxysmal nocturnal dyspnea, edema, light headedness, other Gastrointestinal: negative: Nausea, Vomiting, Abdominal Pain, Diarrhea, Constipation, Melena, Hematochezia, Other Genitourinary: negative: Dysuria, Frequency, Incontinence, Hematuria, Retention , Other Musculoskeletal: Hand Pain. negative: Neck Pain, Shoulder Pain, Arm Pain, Back Pain, Leg Pain, Foot Pain, Other - Medications/Allergies Allergies/Adverse Reactions: Allergies Allergy/AdvReac Type Severity Reaction Status Date / Time amlodipine Allergy Verified 01/01/18 11:11 cephalexin Allergy Verified 01/01/18 11:11 hydrochlorothiazide Allergy Verified 01/01/18 11:11 ibuprofen Allergy Verified 01/01/18 11:11 lansoprazole Allergy Verified 01/01/18 11:11 nitrofurantoin Allergy Verified 01/01/18 11:11 [From Macrodantin] Sulfa (Sulfonamide Allergy Verified 01/01/18 11:11 Antibiotics) sulfamethoxazole Allergy Verified 01/01/18 11:11 sulindac Allergy Verified 01/01/18 11:11 trimethoprim Allergy Verified 01/01/18 11:11 Medications: Current Medications Acetaminophen (Tylenol) 650 mg PO Q4H PRN PRN Reason: Headache/Fever or Pain Last Admin: 04/02/18 01:07 Dose: 650 mg Acetaminophen/Codeine Phosphate (Tylenol #3) 1 tab PO Q12HR [facility] Last Admin: 04/03/18 09:42 Dose: 1 tab Acetaminophen/Codeine Phosphate (Tylenol #3) 1 tab PO Q4H PRN PRN Reason: Pain Al Hydroxide/Mg Hydroxide (Maalox) 15 ml PO Q4H PRN PRN Reason: Heartburn or Indigestion Albuterol Sulfate (Ventolin) 2.5 mg NEB Q4H PRN PRN Reason: Dyspnea/Wheezing/SOB Alprazolam (Xanax) 0.25 mg PO QIDPRN PRN PRN Reason: Anxiety Last Admin: 04/02/18 02:25 Dose: 0.25 mg Alprazolam (Xanax) 0.25 mg PO TID [facility] Last Admin: 04/03/18 09:42 Dose: 0.25 mg Artificial Tears (Tears Naturale) 0 drop EA EYE PRN PRN PRN Reason: Dry Eyes Aspirin (Ecotrin) 81 mg PO QAM [facility] Last Admin: 04/03/18 09:42 Dose: 81 mg Bisacodyl (Dulcolax) 10 mg [place] DAILYPRN PRN PRN Reason: Constipation Carvedilol (Coreg) 25 mg PO BID [facility] Last Admin: 04/03/18 09:41 Dose: 25 mg Clonidine (Catapres) 0.2 mg PO Q4H PRN PRN Reason: Hypertension Last Admin: 04/02/18 00:58 Dose: 0.2 mg Clonidine (Catapres) 0.2 mg PO HS [facility] Last Admin: 04/02/18 20:41 Dose: 0.2 mg Dextrose/Water (Dextrose 50%) 25 gm SLOW IVP PRN PRN PRN Reason: Hypoglycemia Enoxaparin Sodium (Lovenox) 40 mg SC 0900 [facility] Last Admin: 04/03/18 09:39 Dose: 40 mg Famotidine (Pepcid) 20 mg PO BID [facility] Last Admin: 04/03/18 09:41 Dose: 20 mg Glucagon (Glucagon) 1 mg IM PRN PRN PRN Reason: Hypoglycemia Guaifenesin (Robitussin Sf) 200 mg PO Q4H PRN PRN Reason: Cough Hydralazine HCl (Apresoline) 10 mg SLOW IVP Q4H PRN PRN Reason: Systolic BP > 180 Last Admin: 04/03/18 04:26 Dose: 10 mg Sodium Chloride (Normal Saline 0.9%) 1,000 mls @ 50 mls/hr IV .Q20H [facility] Last Admin: 04/02/18 23:26 Dose: 1,000 mls Dextrose/Water (D5w) 1,000 mls @ 0 mls/hr IV .Q0M PRN PRN Reason: Hypoglycemia Vancomycin HCl 750 mg/ Sodium (Chloride) 250 mls @ 250 mls/hr IVPB Q24HR@1800 [facility] Last Admin: 04/02/18 17:44 Dose: 250 mls Piperacillin Sod/Tazobactam (Sod 3.375 gm/ Sodium Chloride) 100 mls @ 200 mls/ hr IVPB 0400,1000,1600,2200 [facility] Last Admin: 04/03/18 09:39 Dose: 100 mls Insulin Human Lispro (Humalog) 0 units SC .MILD SLIDING SCALE PRN PRN Reason: Mild Correctional Scale Iron/Minerals/Multivitamins (Theragran M) 1 tab PO DAILY [facility] Last Admin: 04/03/18 09:41 Dose: 1 tab Lisinopril (Zestril) 20 mg PO BID [facility] Last Admin: 04/03/18 09:40 Dose: 20 mg Loperamide HCl (Imodium) 2 mg PO PRN PRN PRN Reason: Diarrhea/Loose Stools Loratadine (Claritin) 10 mg PO DAILYPRN PRN PRN Reason: Sinus Symptoms Magnesium Hydroxide (Milk Of Magnesium) 30 ml PO DAILYPRN PRN PRN Reason: Constipation Mineral Oil/White Petrolatum (Eucerin Cream) 0 gm TOP BIDPRN PRN PRN Reason: Dry Skin Miscellaneous Medication (Pharmacy To Dose) 0 each IVPB PRN PRN PRN Reason: [facility] Pharmacy to Dose Morphine Sulfate (Morphine) 2 mg SLOW IVP Q4H PRN PRN Reason: PAIN 7-10 Last Admin: 04/03/18 12:12 Dose: 2 mg Ondansetron HCl (Zofran) 4 mg IVP Q6H PRN PRN Reason: Nausea/Vomiting Ondansetron HCl (Zofran Odt) 4 mg PO Q6H PRN PRN Reason: Nausea/Vomiting Phenol (Chloraseptic [place] 180 Ml Bot) 0 ml PO PRN PRN PRN Reason: Sore Throat Saccharomyces Boulardii (Florastor) 250 mg PO DAILY [facility] Last Admin: 04/03/18 09:41 Dose: 250 mg Senna (Senokot) 2 tab PO HSPRN PRN PRN Reason: Constipation Senna/Docusate Sodium (Senokot S) 1 tab PO BIDPRN PRN PRN Reason: CONSTIPATION Sodium Chloride ([place] Nasal [place] 0.65%) 0 ml EA NARE QIDPRN PRN PRN Reason: Nasal Congestion Tramadol HCl (Ultram) 50 mg PO Q8H PRN PRN Reason: HTN Last Admin: 04/03/18 10:46 Dose: 50 mg
[2018-04-03] MEDS: Sodium Chloride 0.9% 1,000 ML IV SCH (16:46)
[2018-04-03 17:38] LABS: Vancomycin, Trough 7.5 ug/mL
[2018-04-03] MEDS ORDERED: Vancomycin HCl 1.25 GM in Sodium Chloride 0.9% 250 ML 250 ML IVPB SCH (18:00)
[2018-04-03] MEDS: cloNIDine 0.2 MG TAB PO SCH (20:12)
[2018-04-04] MEDS: Piperacillin/Tazobactam 3.375 GM in Sodium Chloride 0.9% 100 ML IVPB SCH ×4 (03:19→21:28)
[2018-04-04] MEDS: traMADol HCl 50 MG TAB PO PRN ×2 (06:13→16:40)
[2018-04-04] MEDS: Acetaminophen/Codeine 30-300mg Tablet PO SCH ×2 (08:12→20:27)
[2018-04-04] MEDS: Enoxaparin Sodium 40 MG/0.4 ML SYRINGE SC SCH (08:12)
[2018-04-04] MEDS: Multivitamin W/ Minerals 1 TAB PO SCH (08:13)
[2018-04-04] MEDS: Carvedilol 25 MG TAB PO SCH ×2 (08:13→20:27)
[2018-04-04] MEDS: Lisinopril 20 MG TAB PO SCH ×2 (08:13→20:26)
[2018-04-04] MEDS: ALPRAZolam 0.25 MG TAB PO SCH ×3 (08:13→20:27)
[2018-04-04] MEDS: Saccharomyces boulardii 250 MG CAP PO SCH (08:13)
[2018-04-04] MEDS: Aspirin 81 mg Enteric Coated Tablet PO SCH (08:13)
[2018-04-04] MEDS: Famotidine 20 MG TAB PO SCH ×2 (08:13→20:27)
--- NOTE | 2018-04-04 10:48 | PDOC.PN ---
- Subjective Encounter Start Date: 04/04/18 Encounter Start Time: 07:30 Patient seen and examined. No new complaints. No overnight events - Objective Resuscitation Status: Resuscitation Status DNR:Do Not Resuscitate MAR Reviewed: Yes Vital Signs & Weight: Vital Signs (12 hours) Temp Pulse Resp BP BP Pulse Ox 04/04/18 08:13 178/64 H 04/04/18 08:00 97.6 F 62 18 91 L 04/04/18 07:43 97.6 F 62 18 143/100 H 91 L 04/04/18 03:56 98.3 F 58 L 20 168/62 H 94 L 04/03/18 23:47 97.7 F 61 20 160/54 H 92 L Weight Admit Weight 125 lb 9.6 oz Weight 125 lb 9.6 oz I&O: 04/03/18 04/04/18 04/05/18 06:59 06:59 06:59 Intake Total 120 2840 240 Balance 120 2840 240 Result Diagrams: 04/03/18 05:56 04/03/18 05:55 Additional Labs: Accuchecks 04/04/18 04/03/18 04/03/18 05:27 19:18 16:20 POC Glucose 113 H 121 H 96 04/03/18 11:16 POC Glucose 103 Phys Exam - Physical Examination Constitutional: NAD HEENT: PERRLA, moist MMs, sclera anicteric Neck: no JVD, supple Respiratory: no wheezing, no rales, no rhonchi Cardiovascular: RRR, no significant murmur, no rub Gastrointestinal: soft, non-tender, no distention, positive bowel sounds left hand with dressing left hand contracure Neurological: moves all 4 limbs Lymphatic: no nodes Psychiatric: normal affect Skin: no rash, normal turgor Dx/Plan (1) Cellulitis of left finger Code(s): L03.012 - CELLULITIS OF LEFT FINGER Status: Acute (2) Anemia, normocytic normochromic Code(s): D64.9 - ANEMIA, UNSPECIFIED Status: Chronic (3) Anxiety and depression Code(s): F41.9 - ANXIETY DISORDER, UNSPECIFIED; F32.9 - MAJOR DEPRESSIVE DISORDER, SINGLE EPISODE, UNSPECIFIED Status: Chronic (4) Dementia Code(s): F03.90 - UNSPECIFIED DEMENTIA WITHOUT BEHAVIORAL DISTURBANCE Status: Chronic Qualifiers: (5) GERD (gastroesophageal reflux disease) Code(s): K21.9 - GASTRO-ESOPHAGEAL REFLUX DISEASE WITHOUT ESOPHAGITIS Status: Chronic Qualifiers: (6) HTN (hypertension) Code(s): I10 - ESSENTIAL (PRIMARY) HYPERTENSION Status: Chronic Qualifiers: - Plan cont current plan of care, continue antibiotics, social work assistant * continue zosyn * DC vancomycin * pain control with pain meds as below * medication reviewed as below * symptomatic treatment * wound care * expecting discharge over weekend to [facility]. * DC IVF Review of Systems - Review of Systems Eyes: negative: Pain, Vision Change, Conjunctivae Inflammation, Eyelid Inflammation, Redness, Other ENT: negative: Ear Pain, Ear Discharge, Nose Pain, Nose Discharge, Nose Congestion, Mouth Pain, Mouth Swelling, Throat Pain, Throat Swelling, Other Respiratory: negative: Cough, Dry, Shortness of Breath, Hemoptysis, SOB with Excertion, Pleuritic Pain, Sputum, Wheezing Cardiovascular: negative: chest pain, palpitations, orthopnea, paroxysmal nocturnal dyspnea, edema, light headedness, other Gastrointestinal: negative: Nausea, Vomiting, Abdominal Pain, Diarrhea, Constipation, Melena, Hematochezia, Other Genitourinary: negative: Dysuria, Frequency, Incontinence, Hematuria, Retention , Other Musculoskeletal: Hand Pain. negative: Neck Pain, Shoulder Pain, Arm Pain, Back Pain, Leg Pain, Foot Pain, Other Skin: negative: Rash, Lesions, Michael, Bruising, Other - Medications/Allergies Allergies/Adverse Reactions: Allergies Allergy/AdvReac Type Severity Reaction Status Date / Time amlodipine Allergy Verified 01/01/18 11:11 cephalexin Allergy Verified 01/01/18 11:11 hydrochlorothiazide Allergy Verified 01/01/18 11:11 ibuprofen Allergy Verified 01/01/18 11:11 lansoprazole Allergy Verified 01/01/18 11:11 nitrofurantoin Allergy Verified 01/01/18 11:11 [From Macrodantin] Sulfa (Sulfonamide Allergy Verified 01/01/18 11:11 Antibiotics) sulfamethoxazole Allergy Verified 01/01/18 11:11 sulindac Allergy Verified 01/01/18 11:11 trimethoprim Allergy Verified 01/01/18 11:11 Medications: Current Medications Acetaminophen (Tylenol) 650 mg PO Q4H PRN PRN Reason: Headache/Fever or Pain Last Admin: 04/02/18 01:07 Dose: 650 mg Acetaminophen/Codeine Phosphate (Tylenol #3) 1 tab PO Q12HR [facility] Last Admin: 04/04/18 08:12 Dose: 1 tab Acetaminophen/Codeine Phosphate (Tylenol #3) 1 tab PO Q4H PRN PRN Reason: Pain Al Hydroxide/Mg Hydroxide (Maalox) 15 ml PO Q4H PRN PRN Reason: Heartburn or Indigestion Albuterol Sulfate (Ventolin) 2.5 mg NEB Q4H PRN PRN Reason: Dyspnea/Wheezing/SOB Alprazolam (Xanax) 0.25 mg PO QIDPRN PRN PRN Reason: Anxiety Last Admin: 04/02/18 02:25 Dose: 0.25 mg Alprazolam (Xanax) 0.25 mg PO TID [facility] Last Admin: 04/04/18 08:13 Dose: 0.25 mg Artificial Tears (Tears Naturale) 0 drop EA EYE PRN PRN PRN Reason: Dry Eyes Aspirin (Ecotrin) 81 mg PO QAM [facility] Last Admin: 04/04/18 08:13 Dose: 81 mg Bisacodyl (Dulcolax) 10 mg [place] DAILYPRN PRN PRN Reason: Constipation Carvedilol (Coreg) 25 mg PO BID [facility] Last Admin: 04/04/18 08:13 Dose: 25 mg Clonidine (Catapres) 0.2 mg PO Q4H PRN PRN Reason: Hypertension Last Admin: 04/02/18 00:58 Dose: 0.2 mg Clonidine (Catapres) 0.2 mg PO HS [facility] Last Admin: 04/03/18 20:12 Dose: 0.2 mg Dextrose/Water (Dextrose 50%) 25 gm SLOW IVP PRN PRN PRN Reason: Hypoglycemia Enoxaparin Sodium (Lovenox) 40 mg SC 0900 [facility] Last Admin: 04/04/18 08:12 Dose: 40 mg Famotidine (Pepcid) 20 mg PO BID [facility] Last Admin: 04/04/18 08:13 Dose: 20 mg Glucagon (Glucagon) 1 mg IM PRN PRN PRN Reason: Hypoglycemia Guaifenesin (Robitussin Sf) 200 mg PO Q4H PRN PRN Reason: Cough Hydralazine HCl (Apresoline) 10 mg SLOW IVP Q4H PRN PRN Reason: Systolic BP > 180 Last Admin: 04/03/18 04:26 Dose: 10 mg Sodium Chloride (Normal Saline 0.9%) 1,000 mls @ 50 mls/hr IV .Q20H [facility] Last Admin: 04/03/18 16:46 Dose: 1,000 mls Dextrose/Water (D5w) 1,000 mls @ 0 mls/hr IV .Q0M PRN PRN Reason: Hypoglycemia Piperacillin Sod/Tazobactam (Sod 3.375 gm/ Sodium Chloride) 100 mls @ 200 mls/ hr IVPB 0400,1000,1600,2200 [facility] Last Admin: 04/04/18 09:22 Dose: 100 mls Vancomycin HCl 1.25 gm/ Sodium (Chloride) 250 mls @ 166.667 mls/hr IVPB Q24HR@ 1800 [facility] Last Admin: 04/03/18 18:31 Dose: 250 mls Insulin Human Lispro (Humalog) 0 units SC .MILD SLIDING SCALE PRN PRN Reason: Mild Correctional Scale Iron/Minerals/Multivitamins (Theragran M) 1 tab PO DAILY [facility] Last Admin: 04/04/18 08:13 Dose: 1 tab Lisinopril (Zestril) 20 mg PO BID [facility] Last Admin: 04/04/18 08:13 Dose: 20 mg Loperamide HCl (Imodium) 2 mg PO PRN PRN PRN Reason: Diarrhea/Loose Stools Loratadine (Claritin) 10 mg PO DAILYPRN PRN PRN Reason: Sinus Symptoms Magnesium Hydroxide (Milk Of Magnesium) 30 ml PO DAILYPRN PRN PRN Reason: Constipation Mineral Oil/White Petrolatum (Eucerin Cream) 0 gm TOP BIDPRN PRN PRN Reason: Dry Skin Miscellaneous Medication (Pharmacy To Dose) 0 each IVPB PRN PRN PRN Reason: [facility] Pharmacy to Dose Morphine Sulfate (Morphine) 2 mg SLOW IVP Q4H PRN PRN Reason: PAIN 7-10 Last Admin: 04/04/18 05:40 Dose: 2 mg Ondansetron HCl (Zofran) 4 mg IVP Q6H PRN PRN Reason: Nausea/Vomiting Ondansetron HCl (Zofran Odt) 4 mg PO Q6H PRN PRN Reason: Nausea/Vomiting Phenol (Chloraseptic [place] 180 Ml Bot) 0 ml PO PRN PRN PRN Reason: Sore Throat Saccharomyces Boulardii (Florastor) 250 mg PO DAILY [facility] Last Admin: 04/04/18 08:13 Dose: 250 mg Senna (Senokot) 2 tab PO HSPRN PRN PRN Reason: Constipation Senna/Docusate Sodium (Senokot S) 1 tab PO BIDPRN PRN PRN Reason: CONSTIPATION Sodium Chloride ([place] Nasal [place] 0.65%) 0 ml EA NARE QIDPRN PRN PRN Reason: Nasal Congestion Tramadol HCl (Ultram) 50 mg PO Q8H PRN PRN Reason: HTN Last Admin: 04/04/18 06:13 Dose: 50 mg
[2018-04-04] MEDS: hydrALAZINE 20 MG/ML VIAL SLOW IVP PRN (12:52)
--- NOTE | 2018-04-04 16:27 | CON ---
DATE OF CONSULTATION: 04/04/2018 REASON FOR CONSULTATION: The patient was admitted with inflammatory process left hand. HISTORY OF PRESENT ILLNESS: An 82-year-old with history of dementia, prior episodes of UTI and aspir ation pneumonia who underwent flexor tenotomy of left hand in January by Dr. Temple, has developed infl ammatory process of left hand and was admitted for management. There is evidence of erythema of the third digit and fourth digit of the left hand. Hand x-ray two views showed difficult technically to interpret because of the flexion of the fingers and hands and artifact. Some chronic erosions and vi sible metacarpal heads. There is a subtle erosion involving the lateral margin of the distal shaft p roximal phalanx ring finger. Currently, Ms. Douglas is awake. She is oriented. She has pain on mobilization of the left hand. T here has been no reported diarrhea. She voids spontaneously without any catheters and has a peripher al IV access. 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 Temple of left hand. ALLERGIES: CEPHALEXIN, HYDROCHLOROTHIAZIDE, IBUPROFEN, LANSOPRAZOLE, NORVASC, SULFA DRUGS, SULINDAC and TRIMETHOPRIM. FAMILY HISTORY: Noncontributory. CURRENT MEDICATIONS: Tylenol, Maalox, Ventolin, Xanax, Ecotrin, Dulcolax, Coreg, Catapres, Lovenox, glucagon, insulin, Imodium, Zosyn. PHYSICAL EXAMINATION: VITAL SIGNS: Temperature max 101.4 on 04/02/2018, afebrile since. BP 190/70, pulse 69, respirations 16, O2 sat 96%. SKIN: Shows the area of redness around the proximal phalanx and proximal interphalangeal joint of th e fourth digit, left hand. I was unable to observe the interdigital space because the patient kept t he fingers tightly apposed in the left hand. Pulses are 2+ in radialis. Cap refill is normal. The other digits do not have a lot of erythema noted. Most of the inflammatory changes are restricted to the fourth digit. Peripheral IV access. No Huggins catheter. HEENT: Ocular movements conjugate. The patient has no [place] teeth left. NECK: Supple. LUNGS: Symmetric air entry without crackles or wheezing. HEART: S1, S2, regular rate. ABDOMEN: Soft, not distended. EXTREMITIES: Lower extremities with no inflammatory changes. Pulses 1+ in dorsalis pedis. NEUROLOGIC: Plantar responses are flexure. She is awake, knows her name, but could not tell me wher e she was and absolutely no recollection of events. LABORATORY DATA: White cell count is 8.3 and now 6.5, hemoglobin 10.1, platelets 244,000. Chemistry was not remarkable. Normal transaminases. CRP was 3.79. Albumin 3.5. Microbiology with Proteus m irabilis. ASSESSMENT: Dementia with recent tenotomy, now with evidence of inflammatory process surrounding the fourth digit of left hand, difficult to inspect the hand because of the deformities and contractures . PLAN: Since the patient had surgery just a few weeks ago, the possibility of post-surgical infection needs to be considered. The organism isolated from the swab is not necessarily route sales representative of th e actual culprit. MRSA needs to be considered as well. We will restart vancomycin, continue Zosyn a nd we will have to attempt better evaluation of the skin surface in the left hand to see where the or igin of this infection is emanating from.
[2018-04-04] MEDS: Vancomycin HCl 1.25 GM in Sodium Chloride 0.9% 250 ML 250 ML IVPB SCH (17:50)
[2018-04-04] MEDS: cloNIDine 0.2 MG TAB PO SCH (20:27)
[2018-04-04] MEDS ORDERED: Vancomycin HCl 1 GM in Sodium Chloride 0.9% 250 ML 250 ML IVPB SCH (21:00)
[2018-04-05] MEDS: hydrALAZINE 20 MG/ML VIAL SLOW IVP PRN ×2 (00:03→16:16)
[2018-04-05] MEDS: ALPRAZolam 0.25 MG TAB PO PRN (00:10)
[2018-04-05] MEDS: Piperacillin/Tazobactam 3.375 GM in Sodium Chloride 0.9% 100 ML IVPB SCH ×4 (04:50→21:28)
[2018-04-05] MEDS: Acetaminophen/Codeine 30-300mg Tablet PO SCH ×2 (08:27→20:12)
[2018-04-05] MEDS: Famotidine 20 MG TAB PO SCH ×2 (08:28→20:11)
[2018-04-05] MEDS: Aspirin 81 mg Enteric Coated Tablet PO SCH (08:28)
[2018-04-05] MEDS: Multivitamin W/ Minerals 1 TAB PO SCH (08:28)
[2018-04-05] MEDS: Lisinopril 20 MG TAB PO SCH ×2 (08:28→20:10)
[2018-04-05] MEDS: ALPRAZolam 0.25 MG TAB PO SCH ×3 (08:28→20:12)
[2018-04-05] MEDS: Saccharomyces boulardii 250 MG CAP PO SCH (08:28)
[2018-04-05] MEDS: Carvedilol 25 MG TAB PO SCH ×2 (08:28→20:12)
[2018-04-05] MEDS: Enoxaparin Sodium 40 MG/0.4 ML SYRINGE SC SCH (08:29)
--- NOTE | 2018-04-05 10:45 | PDOC.PN ---
- Subjective Encounter Start Date: 04/05/18 Encounter Start Time: 07:15 Patient seen and examined. No new complaints. No overnight events - Objective Resuscitation Status: Resuscitation Status DNR:Do Not Resuscitate MAR Reviewed: Yes Vital Signs & Weight: Vital Signs (12 hours) Temp Pulse Resp BP BP Pulse Ox 04/05/18 08:28 208/64 H 04/05/18 08:00 98.1 F 64 20 146/67 H 92 L 04/05/18 04:00 97.8 F 62 20 149/68 H 04/05/18 00:58 148/54 H 04/05/18 00:03 208/64 H 04/05/18 00:00 97.4 F L 64 28 H 208/64 H 98 Weight Admit Weight 125 lb 9.6 oz Weight 125 lb 9.6 oz I&O: 04/04/18 04/05/18 04/06/18 06:59 06:59 06:59 Intake Total 2840 2550 Balance 2840 2550 Result Diagrams: 04/03/18 05:56 04/03/18 05:55 Additional Labs: Accuchecks 04/05/18 04/04/18 04/04/18 06:14 20:45 15:43 POC Glucose 101 95 95 04/04/18 11:38 POC Glucose 105 Phys Exam - Physical Examination Constitutional: NAD HEENT: PERRLA, moist MMs, sclera anicteric Neck: no JVD, supple Respiratory: no wheezing, no rales, no rhonchi Cardiovascular: RRR, no significant murmur, no rub Gastrointestinal: soft, non-tender, no distention, positive bowel sounds Musculoskeletal: no edema, pulses present left hand with dressing Neurological: moves all 4 limbs Lymphatic: no nodes Psychiatric: normal affect Skin: no rash, normal turgor Dx/Plan (1) Cellulitis of left finger Code(s): L03.012 - CELLULITIS OF LEFT FINGER Status: Acute (2) Anemia, normocytic normochromic Code(s): D64.9 - ANEMIA, UNSPECIFIED Status: Chronic (3) Anxiety and depression Code(s): F41.9 - ANXIETY DISORDER, UNSPECIFIED; F32.9 - MAJOR DEPRESSIVE DISORDER, SINGLE EPISODE, UNSPECIFIED Status: Chronic (4) Dementia Code(s): F03.90 - UNSPECIFIED DEMENTIA WITHOUT BEHAVIORAL DISTURBANCE Status: Chronic Qualifiers: (5) GERD (gastroesophageal reflux disease) Code(s): K21.9 - GASTRO-ESOPHAGEAL REFLUX DISEASE WITHOUT ESOPHAGITIS Status: Chronic Qualifiers: (6) HTN (hypertension) Code(s): I10 - ESSENTIAL (PRIMARY) HYPERTENSION Status: Chronic Qualifiers: - Plan cont current plan of care, continue antibiotics * ID recommendation noted * currently on vancomycin and zosyn * 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 Review of Systems - Review of Systems Eyes: negative: Pain, Vision Change, Conjunctivae Inflammation, Eyelid Inflammation, Redness, Other ENT: negative: Ear Pain, Ear Discharge, Nose Pain, Nose Discharge, Nose Congestion, Mouth Pain, Mouth Swelling, Throat Pain, Throat Swelling, Other Respiratory: negative: Cough, Dry, Shortness of Breath, Hemoptysis, SOB with Excertion, Pleuritic Pain, Sputum, Wheezing Cardiovascular: negative: chest pain, palpitations, orthopnea, paroxysmal nocturnal dyspnea, edema, light headedness, other Gastrointestinal: negative: Nausea, Vomiting, Abdominal Pain, Diarrhea, Constipation, Melena, Hematochezia, Other Genitourinary: negative: Dysuria, Frequency, Incontinence, Hematuria, Retention , Other Musculoskeletal: negative: Neck Pain, Shoulder Pain, Arm Pain, Back Pain, Hand Pain, Leg Pain, Foot Pain, Other - Medications/Allergies Allergies/Adverse Reactions: Allergies Allergy/AdvReac Type Severity Reaction Status Date / Time amlodipine Allergy Verified 01/01/18 11:11 cephalexin Allergy Verified 01/01/18 11:11 hydrochlorothiazide Allergy Verified 01/01/18 11:11 ibuprofen Allergy Verified 01/01/18 11:11 lansoprazole Allergy Verified 01/01/18 11:11 nitrofurantoin Allergy Verified 01/01/18 11:11 [From Macrodantin] Sulfa (Sulfonamide Allergy Verified 01/01/18 11:11 Antibiotics) sulfamethoxazole Allergy Verified 01/01/18 11:11 sulindac Allergy Verified 01/01/18 11:11 trimethoprim Allergy Verified 01/01/18 11:11 Medications: Current Medications Acetaminophen (Tylenol) 650 mg PO Q4H PRN PRN Reason: Headache/Fever or Pain Last Admin: 04/02/18 01:07 Dose: 650 mg Acetaminophen/Codeine Phosphate (Tylenol #3) 1 tab PO Q12HR [facility] Last Admin: 04/05/18 08:27 Dose: 1 tab Acetaminophen/Codeine Phosphate (Tylenol #3) 1 tab PO Q4H PRN PRN Reason: Pain Al Hydroxide/Mg Hydroxide (Maalox) 15 ml PO Q4H PRN PRN Reason: Heartburn or Indigestion Albuterol Sulfate (Ventolin) 2.5 mg NEB Q4H PRN PRN Reason: Dyspnea/Wheezing/SOB Alprazolam (Xanax) 0.25 mg PO QIDPRN PRN PRN Reason: Anxiety Last Admin: 04/05/18 00:10 Dose: 0.25 mg Alprazolam (Xanax) 0.25 mg PO TID [facility] Last Admin: 04/05/18 08:28 Dose: 0.25 mg Artificial Tears (Tears Naturale) 0 drop EA EYE PRN PRN PRN Reason: Dry Eyes Aspirin (Ecotrin) 81 mg PO QAM [facility] Last Admin: 04/05/18 08:28 Dose: 81 mg Bisacodyl (Dulcolax) 10 mg MS DAILYPRN PRN PRN Reason: Constipation Carvedilol (Coreg) 25 mg PO BID [facility] Last Admin: 04/05/18 08:28 Dose: 25 mg Clonidine (Catapres) 0.2 mg PO Q4H PRN PRN Reason: Hypertension Last Admin: 04/02/18 00:58 Dose: 0.2 mg Clonidine (Catapres) 0.2 mg PO HS [facility] Last Admin: 04/04/18 20:27 Dose: 0.2 mg Dextrose/Water (Dextrose 50%) 25 gm SLOW IVP PRN PRN PRN Reason: Hypoglycemia Enoxaparin Sodium (Lovenox) 40 mg SC 0900 [facility] Last Admin: 04/05/18 08:29 Dose: 40 mg Famotidine (Pepcid) 20 mg PO BID [facility] Last Admin: 04/05/18 08:28 Dose: 20 mg Glucagon (Glucagon) 1 mg IM PRN PRN PRN Reason: Hypoglycemia Guaifenesin (Robitussin Sf) 200 mg PO Q4H PRN PRN Reason: Cough Hydralazine HCl (Apresoline) 10 mg SLOW IVP Q4H PRN PRN Reason: Systolic BP > 180 Last Admin: 04/05/18 00:03 Dose: 10 mg Dextrose/Water (D5w) 1,000 mls @ 0 mls/hr IV .Q0M PRN PRN Reason: Hypoglycemia Piperacillin Sod/Tazobactam (Sod 3.375 gm/ Sodium Chloride) 100 mls @ 200 mls/ hr IVPB 0400,1000,1600,2200 [facility] Last Admin: 04/05/18 09:52 Dose: 100 mls Vancomycin HCl 1.25 gm/ Sodium (Chloride) 250 mls @ 166.667 mls/hr IVPB Q24HR@ 1800 [facility] Last Admin: 04/04/18 17:50 Dose: 250 mls Insulin Human Lispro (Humalog) 0 units SC .MILD SLIDING SCALE PRN PRN Reason: Mild Correctional Scale Iron/Minerals/Multivitamins (Theragran M) 1 tab PO DAILY [facility] Last Admin: 04/05/18 08:28 Dose: 1 tab Lisinopril (Zestril) 20 mg PO BID [facility] Last Admin: 04/05/18 08:28 Dose: 20 mg Loperamide HCl (Imodium) 2 mg PO PRN PRN PRN Reason: Diarrhea/Loose Stools Loratadine (Claritin) 10 mg PO DAILYPRN PRN PRN Reason: Sinus Symptoms Magnesium Hydroxide (Milk Of Magnesium) 30 ml PO DAILYPRN PRN PRN Reason: Constipation Mineral Oil/White Petrolatum (Eucerin Cream) 0 gm TOP BIDPRN PRN PRN Reason: Dry Skin Miscellaneous Medication (Pharmacy To Dose) 1 each IVPB PRN PRN PRN Reason: Pharmacy to dose Morphine Sulfate (Morphine) 2 mg SLOW IVP Q4H PRN PRN Reason: PAIN 7-10 Last Admin: 04/05/18 00:02 Dose: 2 mg Ondansetron HCl (Zofran) 4 mg IVP Q6H PRN PRN Reason: Nausea/Vomiting Ondansetron HCl (Zofran Odt) 4 mg PO Q6H PRN PRN Reason: Nausea/Vomiting Phenol (Chloraseptic [place] 180 Ml Bot) 0 ml PO PRN PRN PRN Reason: Sore Throat Saccharomyces Boulardii (Florastor) 250 mg PO DAILY [facility] Last Admin: 04/05/18 08:28 Dose: 250 mg Senna (Senokot) 2 tab PO HSPRN PRN PRN Reason: Constipation Senna/Docusate Sodium (Senokot S) 1 tab PO BIDPRN PRN PRN Reason: CONSTIPATION Sodium Chloride ([place] Nasal [place] 0.65%) 0 ml EA NARE QIDPRN PRN PRN Reason: Nasal Congestion Tramadol HCl (Ultram) 50 mg PO Q8H PRN PRN Reason: HTN Last Admin: 04/04/18 16:40 Dose: 50 mg
[2018-04-05 17:28] LABS: Vancomycin, Trough 14.9 ug/mL
[2018-04-05] MEDS: Vancomycin HCl 1.25 GM in Sodium Chloride 0.9% 250 ML 250 ML IVPB SCH (18:05)
[2018-04-05] MEDS: cloNIDine 0.2 MG TAB PO SCH (20:12)
[2018-04-06] MEDS: traMADol HCl 50 MG TAB PO PRN (01:26)
[2018-04-06] MEDS: ALPRAZolam 0.25 MG TAB PO PRN (01:27)
[2018-04-06] MEDS: Piperacillin/Tazobactam 3.375 GM in Sodium Chloride 0.9% 100 ML IVPB SCH ×4 (03:18→22:29)
[2018-04-06] MEDS: Aspirin 81 mg Enteric Coated Tablet PO SCH (08:18)
[2018-04-06] MEDS: Lisinopril 20 MG TAB PO SCH ×2 (08:18→20:22)
[2018-04-06] MEDS: Saccharomyces boulardii 250 MG CAP PO SCH (08:18)
[2018-04-06] MEDS: Multivitamin W/ Minerals 1 TAB PO SCH (08:19)
[2018-04-06] MEDS: ALPRAZolam 0.25 MG TAB PO SCH ×3 (08:19→20:21)
[2018-04-06] MEDS: Carvedilol 25 MG TAB PO SCH ×2 (08:19→20:21)
[2018-04-06] MEDS: Famotidine 20 MG TAB PO SCH ×2 (08:19→20:21)
[2018-04-06] MEDS: Acetaminophen/Codeine 30-300mg Tablet PO SCH ×2 (08:19→20:21)
[2018-04-06] MEDS: Enoxaparin Sodium 40 MG/0.4 ML SYRINGE SC SCH (09:21)
--- NOTE | 2018-04-06 09:21 | PDOC.PN ---
- Subjective Encounter Start Date: 04/06/18 Encounter Start Time: 07:10 Patient seen and examined. No new complaints. No overnight events - Objective Resuscitation Status: Resuscitation Status DNR:Do Not Resuscitate MAR Reviewed: Yes Vital Signs & Weight: Vital Signs (12 hours) Temp Pulse Resp BP BP Pulse Ox 04/06/18 08:18 171/74 H 04/06/18 03:38 98.1 F 70 16 148/70 H 97 04/06/18 00:00 97.8 F 61 12 150/78 H 61 L Weight Admit Weight 125 lb 9.6 oz Weight 125 lb 9.6 oz I&O: 04/05/18 04/06/18 04/07/18 06:59 06:59 06:59 Intake Total 2550 Balance 2550 Result Diagrams: 04/03/18 05:56 04/03/18 05:55 Additional Labs: Accuchecks 04/06/18 04/05/18 04/05/18 06:20 20:29 15:51 POC Glucose 97 103 109 04/05/18 11:40 POC Glucose 104 Phys Exam - Physical Examination Constitutional: NAD HEENT: PERRLA, moist MMs, sclera anicteric Neck: no JVD, supple Respiratory: no wheezing, no rales, no rhonchi Cardiovascular: RRR, no significant murmur, no rub Gastrointestinal: soft, non-tender, no distention, positive bowel sounds Musculoskeletal: no edema, pulses present left hand with dressing Neurological: moves all 4 limbs Lymphatic: no nodes Psychiatric: normal affect Skin: no rash, normal turgor Dx/Plan (1) Cellulitis of left finger Code(s): L03.012 - CELLULITIS OF LEFT FINGER Status: Acute (2) Anemia, normocytic normochromic Code(s): D64.9 - ANEMIA, UNSPECIFIED Status: Chronic (3) Anxiety and depression Code(s): F41.9 - ANXIETY DISORDER, UNSPECIFIED; F32.9 - MAJOR DEPRESSIVE DISORDER, SINGLE EPISODE, UNSPECIFIED Status: Chronic (4) Dementia Code(s): F03.90 - UNSPECIFIED DEMENTIA WITHOUT BEHAVIORAL DISTURBANCE Status: Chronic Qualifiers: (5) GERD (gastroesophageal reflux disease) Code(s): K21.9 - GASTRO-ESOPHAGEAL REFLUX DISEASE WITHOUT ESOPHAGITIS Status: Chronic Qualifiers: (6) HTN (hypertension) Code(s): I10 - ESSENTIAL (PRIMARY) HYPERTENSION Status: Chronic Qualifiers: - Plan cont current plan of care, continue antibiotics * continue vancomycin and zosyn as per ID team * will monitor in hospital.. Review of Systems - Review of Systems Eyes: negative: Pain, Vision Change, Conjunctivae Inflammation, Eyelid Inflammation, Redness, Other ENT: negative: Ear Pain, Ear Discharge, Nose Pain, Nose Discharge, Nose Congestion, Mouth Pain, Mouth Swelling, Throat Pain, Throat Swelling, Other Respiratory: negative: Cough, Dry, Shortness of Breath, Hemoptysis, SOB with Excertion, Pleuritic Pain, Sputum, Wheezing Cardiovascular: negative: chest pain, palpitations, orthopnea, paroxysmal nocturnal dyspnea, edema, light headedness, other Gastrointestinal: negative: Nausea, Vomiting, Abdominal Pain, Diarrhea, Constipation, Melena, Hematochezia, Other Genitourinary: negative: Dysuria, Frequency, Incontinence, Hematuria, Retention , Other Musculoskeletal: negative: Neck Pain, Shoulder Pain, Arm Pain, Back Pain, Hand Pain, Leg Pain, Foot Pain, Other Skin: negative: Rash, Lesions, Michael, Bruising, Other - Medications/Allergies Allergies/Adverse Reactions: Allergies Allergy/AdvReac Type Severity Reaction Status Date / Time amlodipine Allergy Verified 01/01/18 11:11 cephalexin Allergy Verified 01/01/18 11:11 hydrochlorothiazide Allergy Verified 01/01/18 11:11 ibuprofen Allergy Verified 01/01/18 11:11 lansoprazole Allergy Verified 01/01/18 11:11 nitrofurantoin Allergy Verified 01/01/18 11:11 [From Macrodantin] Sulfa (Sulfonamide Allergy Verified 01/01/18 11:11 Antibiotics) sulfamethoxazole Allergy Verified 01/01/18 11:11 sulindac Allergy Verified 01/01/18 11:11 trimethoprim Allergy Verified 01/01/18 11:11 Medications: Current Medications Acetaminophen (Tylenol) 650 mg PO Q4H PRN PRN Reason: Headache/Fever or Pain Last Admin: 04/02/18 01:07 Dose: 650 mg Acetaminophen/Codeine Phosphate (Tylenol #3) 1 tab PO Q12HR [facility] Last Admin: 04/06/18 08:19 Dose: 1 tab Acetaminophen/Codeine Phosphate (Tylenol #3) 1 tab PO Q4H PRN PRN Reason: Pain Al Hydroxide/Mg Hydroxide (Maalox) 15 ml PO Q4H PRN PRN Reason: Heartburn or Indigestion Albuterol Sulfate (Ventolin) 2.5 mg NEB Q4H PRN PRN Reason: Dyspnea/Wheezing/SOB Alprazolam (Xanax) 0.25 mg PO QIDPRN PRN PRN Reason: Anxiety Last Admin: 04/06/18 01:27 Dose: 0.25 mg Alprazolam (Xanax) 0.25 mg PO TID [facility]PL[facility] BY [facility] Last Admin: 04/06/18 08:19 Dose: 0.25 mg Artificial Tears (Tears Naturale) 0 drop EA EYE PRN PRN PRN Reason: Dry Eyes Aspirin (Ecotrin) 81 mg PO QAM [facility]PL[facility] Last Admin: 04/06/18 08:18 Dose: 81 mg Bisacodyl (Dulcolax) 10 mg NM DAILYPRN PRN PRN Reason: Constipation Carvedilol (Coreg) 25 mg PO BID [facility] Last Admin: 04/06/18 08:19 Dose: 25 mg Clonidine (Catapres) 0.2 mg PO Q4H PRN PRN Reason: Hypertension Last Admin: 04/02/18 00:58 Dose: 0.2 mg Clonidine (Catapres) 0.2 mg PO HS [facility] Last Admin: 04/05/18 20:12 Dose: 0.2 mg Dextrose/Water (Dextrose 50%) 25 gm SLOW IVP PRN PRN PRN Reason: Hypoglycemia Enoxaparin Sodium (Lovenox) 40 mg SC 0900 [facility] Last Admin: 04/05/18 08:29 Dose: 40 mg Famotidine (Pepcid) 20 mg PO BID [facility] Last Admin: 04/06/18 08:19 Dose: 20 mg Glucagon (Glucagon) 1 mg IM PRN PRN PRN Reason: Hypoglycemia Guaifenesin (Robitussin Sf) 200 mg PO Q4H PRN PRN Reason: Cough Hydralazine HCl (Apresoline) 10 mg SLOW IVP Q4H PRN PRN Reason: Systolic BP > 180 Last Admin: 04/05/18 16:16 Dose: 10 mg Dextrose/Water (D5w) 1,000 mls @ 0 mls/hr IV .Q0M PRN PRN Reason: Hypoglycemia Piperacillin Sod/Tazobactam (Sod 3.375 gm/ Sodium Chloride) 100 mls @ 200 mls/ hr IVPB 0400,1000,1600,2200 [facility]PL[facility] Last Admin: 04/06/18 03:18 Dose: 100 mls Vancomycin HCl 1.25 gm/ Sodium (Chloride) 250 mls @ 166.667 mls/hr IVPB Q24HR@ 1800 [facility] Last Admin: 04/05/18 18:05 Dose: 250 mls Insulin Human Lispro (Humalog) 0 units SC .MILD SLIDING SCALE PRN PRN Reason: Mild Correctional Scale Iron/Minerals/Multivitamins (Theragran M) 1 tab PO DAILY [facility] Last Admin: 04/06/18 08:19 Dose: 1 tab Lisinopril (Zestril) 20 mg PO BID [facility] Last Admin: 04/06/18 08:18 Dose: 20 mg Loperamide HCl (Imodium) 2 mg PO PRN PRN PRN Reason: Diarrhea/Loose Stools Loratadine (Claritin) 10 mg PO DAILYPRN PRN PRN Reason: Sinus Symptoms Magnesium Hydroxide (Milk Of Magnesium) 30 ml PO DAILYPRN PRN PRN Reason: Constipation Mineral Oil/White Petrolatum (Eucerin Cream) 0 gm TOP BIDPRN PRN PRN Reason: Dry Skin Miscellaneous Medication (Pharmacy To Dose) 1 each IVPB PRN PRN PRN Reason: Pharmacy to dose Morphine Sulfate (Morphine) 2 mg SLOW IVP Q4H PRN PRN Reason: PAIN 7-10 Last Admin: 04/06/18 03:18 Dose: 2 mg Ondansetron HCl (Zofran) 4 mg IVP Q6H PRN PRN Reason: Nausea/Vomiting Ondansetron HCl (Zofran Odt) 4 mg PO Q6H PRN PRN Reason: Nausea/Vomiting Phenol (Chloraseptic [place] 180 Ml Bot) 0 ml PO PRN PRN PRN Reason: Sore Throat Saccharomyces Boulardii (Florastor) 250 mg PO DAILY [facility] Last Admin: 04/06/18 08:18 Dose: 250 mg Senna (Senokot) 2 tab PO HSPRN PRN PRN Reason: Constipation Senna/Docusate Sodium (Senokot S) 1 tab PO BIDPRN PRN PRN Reason: CONSTIPATION Sodium Chloride ([place] Nasal [place] 0.65%) 0 ml EA NARE QIDPRN PRN PRN Reason: Nasal Congestion Tramadol HCl (Ultram) 50 mg PO Q8H PRN PRN Reason: HTN Last Admin: 04/06/18 01:26 Dose: 50 mg
[2018-04-06] MEDS: hydrALAZINE 20 MG/ML VIAL SLOW IVP PRN (09:29)
--- NOTE | 2018-04-06 14:01 | PRG ---
DATE OF SERVICE: 04/06/2018 PHYSICAL EXAMINATION: GENERAL APPEARANCE: Awake and in no distress. No diarrhea. Temperature is normal, T-max 98.2, bloo d pressure 170/74, pulse 65. MUSCULOSKELETAL: Left hand erythema has improved markedly. Today, I was able to evaluate the interd igital space and she does have ulcerated areas, both in the radial aspect of the fourth digit and uln ar aspect of the third digit proximal phalanx skin area. The palmar surface of the hand appears to h ave no inflammatory changes. Remainder aspects of the examination were not remarkable. LABORATORY DATA AND IMAGING DATA: White cell count 6.5, hemoglobin 10, platelets 244. Microbiology with Proteus mirabilis, which is resistant to quinolones, but appears susceptible to ampicillin, sulb actam. Hand x-ray had subtle erosion in the lateral margin distal shaft proximal phalanx. 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 DISCUSSION: At this point, we will order a PICC line and continue treatment with Invanz daily for at least 4 weeks. The alternate approach would be an MRI. I think that would be difficult to carry ou t in view of her contractures and difficulty with positioning. I am afraid it would not be informati ve. Follow up plain films after completion of treatment. Weekly labs.
[2018-04-06] MEDS: Vancomycin HCl 1.25 GM in Sodium Chloride 0.9% 250 ML 250 ML IVPB SCH (17:31)
[2018-04-06] MEDS: cloNIDine 0.2 MG TAB PO SCH (20:23)
[2018-04-07] MEDS: Piperacillin/Tazobactam 3.375 GM in Sodium Chloride 0.9% 100 ML IVPB SCH ×4 (04:31→21:55)
[2018-04-07] MEDS: ALPRAZolam 0.25 MG TAB PO PRN (04:40)
[2018-04-07] MEDS: Acetaminophen/Codeine 30-300mg Tablet PO SCH ×2 (09:39→20:06)
[2018-04-07] MEDS: ALPRAZolam 0.25 MG TAB PO SCH ×3 (09:39→20:06)
[2018-04-07] MEDS: Carvedilol 25 MG TAB PO SCH ×2 (09:40→20:12)
[2018-04-07] MEDS: Lisinopril 20 MG TAB PO SCH ×2 (09:41→22:01)
[2018-04-07] MEDS: cloNIDine 0.2 MG TAB PO PRN (09:43)
[2018-04-07] MEDS: Aspirin 81 mg Enteric Coated Tablet PO SCH (09:44)
[2018-04-07] MEDS: Famotidine 20 MG TAB PO SCH ×2 (09:44→20:06)
[2018-04-07] MEDS: Saccharomyces boulardii 250 MG CAP PO SCH (09:44)
[2018-04-07] MEDS: Multivitamin W/ Minerals 1 TAB PO SCH (09:44)
[2018-04-07] MEDS: Enoxaparin Sodium 40 MG/0.4 ML SYRINGE SC SCH (09:45)
--- NOTE | 2018-04-07 10:32 | PDOC.PN ---
- Subjective Encounter Start Date: 04/07/18 Encounter Start Time: 07:10 Patient seen and examined. No new complaints. No overnight events - Objective Resuscitation Status: Resuscitation Status DNR:Do Not Resuscitate MAR Reviewed: Yes Vital Signs & Weight: Vital Signs (12 hours) Temp Pulse Resp BP Pulse Ox 04/07/18 08:00 97.8 F 65 24 H 210/84 H 98 Weight Admit Weight 125 lb 9.6 oz Weight 125 lb 9.6 oz I&O: 04/06/18 04/07/18 04/08/18 06:59 06:59 06:59 Intake Total 120 240 Balance 120 240 Result Diagrams: 04/03/18 05:56 04/03/18 05:55 Additional Labs: Accuchecks 04/07/18 04/06/18 04/06/18 06:19 20:43 16:41 POC Glucose 93 104 98 04/06/18 11:21 POC Glucose 102 Phys Exam - Physical Examination Constitutional: NAD HEENT: PERRLA, moist MMs, sclera anicteric Neck: no JVD, supple Respiratory: no wheezing, no rales, no rhonchi Cardiovascular: RRR, no significant murmur, no rub Gastrointestinal: soft, non-tender, no distention, positive bowel sounds Musculoskeletal: pulses present left hand with dressing Neurological: moves all 4 limbs Lymphatic: no nodes Psychiatric: normal affect Skin: no rash, normal turgor Dx/Plan (1) Cellulitis of left finger Code(s): L03.012 - CELLULITIS OF LEFT FINGER Status: Acute (2) Anemia, normocytic normochromic Code(s): D64.9 - ANEMIA, UNSPECIFIED Status: Chronic (3) Anxiety and depression Code(s): F41.9 - ANXIETY DISORDER, UNSPECIFIED; F32.9 - MAJOR DEPRESSIVE DISORDER, SINGLE EPISODE, UNSPECIFIED Status: Chronic (4) Dementia Code(s): F03.90 - UNSPECIFIED DEMENTIA WITHOUT BEHAVIORAL DISTURBANCE Status: Chronic Qualifiers: (5) GERD (gastroesophageal reflux disease) Code(s): K21.9 - GASTRO-ESOPHAGEAL REFLUX DISEASE WITHOUT ESOPHAGITIS Status: Chronic Qualifiers: (6) HTN (hypertension) Code(s): I10 - ESSENTIAL (PRIMARY) HYPERTENSION Status: Chronic Qualifiers: - Plan cont current plan of care, continue antibiotics, director of social services * will do picc line * rn case manager hospice to arrange iv antibiotics at custodial * she will need invanz till 05/02/18 * medication reviewed as below * symptomatic treatment. * wound care * now on vancomycin and zosyn Review of Systems - Review of Systems Eyes: negative: Pain, Vision Change, Conjunctivae Inflammation, Eyelid Inflammation, Redness, Other ENT: negative: Ear Pain, Ear Discharge, Nose Pain, Nose Discharge, Nose Congestion, Mouth Pain, Mouth Swelling, Throat Pain, Throat Swelling, Other Respiratory: negative: Cough, Dry, Shortness of Breath, Hemoptysis, SOB with Excertion, Pleuritic Pain, Sputum, Wheezing Gastrointestinal: negative: Nausea, Vomiting, Abdominal Pain, Diarrhea, Constipation, Melena, Hematochezia, Other Genitourinary: negative: Dysuria, Frequency, Incontinence, Hematuria, Retention , Other Musculoskeletal: Hand Pain. negative: Neck Pain, Shoulder Pain, Arm Pain, Back Pain, Leg Pain, Foot Pain, Other Skin: negative: Rash, Lesions, Michael, Bruising, Other - Medications/Allergies Allergies/Adverse Reactions: Allergies Allergy/AdvReac Type Severity Reaction Status Date / Time amlodipine Allergy Verified 01/01/18 11:11 cephalexin Allergy Verified 01/01/18 11:11 hydrochlorothiazide Allergy Verified 01/01/18 11:11 ibuprofen Allergy Verified 01/01/18 11:11 lansoprazole Allergy Verified 01/01/18 11:11 nitrofurantoin Allergy Verified 01/01/18 11:11 [From Macrodantin] Sulfa (Sulfonamide Allergy Verified 01/01/18 11:11 Antibiotics) sulfamethoxazole Allergy Verified 01/01/18 11:11 sulindac Allergy Verified 01/01/18 11:11 trimethoprim Allergy Verified 01/01/18 11:11 Medications: Current Medications Acetaminophen (Tylenol) 650 mg PO Q4H PRN PRN Reason: Headache/Fever or Pain Last Admin: 04/02/18 01:07 Dose: 650 mg Acetaminophen/Codeine Phosphate (Tylenol #3) 1 tab PO Q12HR DEEPAK Last Admin: 04/07/18 09:39 Dose: 1 tab Acetaminophen/Codeine Phosphate (Tylenol #3) 1 tab PO Q4H PRN PRN Reason: Pain Last Admin: 04/06/18 14:19 Dose: 1 tab Al Hydroxide/Mg Hydroxide (Maalox) 15 ml PO Q4H PRN PRN Reason: Heartburn or Indigestion Albuterol Sulfate (Ventolin) 2.5 mg NEB Q4H PRN PRN Reason: Dyspnea/Wheezing/SOB Alprazolam (Xanax) 0.25 mg PO QIDPRN PRN PRN Reason: Anxiety Last Admin: 04/07/18 04:40 Dose: 0.25 mg Alprazolam (Xanax) 0.25 mg PO TID [facility] Last Admin: 04/07/18 09:39 Dose: 0.25 mg Artificial Tears (Tears Naturale) 0 drop EA EYE PRN PRN PRN Reason: Dry Eyes Aspirin (Ecotrin) 81 mg PO QAM [facility] Last Admin: 04/07/18 09:44 Dose: Not Given Bisacodyl (Dulcolax) 10 mg [place] DAILYPRN PRN PRN Reason: Constipation Carvedilol (Coreg) 25 mg PO BID [facility] Last Admin: 04/07/18 09:40 Dose: 25 mg Clonidine (Catapres) 0.2 mg PO Q4H PRN PRN Reason: Hypertension Last Admin: 04/07/18 09:43 Dose: 0.2 mg Clonidine (Catapres) 0.2 mg PO HS [facility] Last Admin: 04/06/18 20:23 Dose: 0.2 mg Dextrose/Water (Dextrose 50%) 25 gm SLOW IVP PRN PRN PRN Reason: Hypoglycemia Enoxaparin Sodium (Lovenox) 40 mg SC 0900 [facility] Last Admin: 04/07/18 09:45 Dose: 40 mg Famotidine (Pepcid) 20 mg PO BID [facility] Last Admin: 04/07/18 09:44 Dose: Not Given Glucagon (Glucagon) 1 mg IM PRN PRN PRN Reason: Hypoglycemia Guaifenesin (Robitussin Sf) 200 mg PO Q4H PRN PRN Reason: Cough Hydralazine HCl (Apresoline) 10 mg SLOW IVP Q4H PRN PRN Reason: Systolic BP > 180 Last Admin: 04/06/18 09:29 Dose: 10 mg Dextrose/Water (D5w) 1,000 mls @ 0 mls/hr IV .Q0M PRN PRN Reason: Hypoglycemia Piperacillin Sod/Tazobactam (Sod 3.375 gm/ Sodium Chloride) 100 mls @ 200 mls/ hr IVPB 0400,1000,1600,2200 [facility] Last Admin: 04/07/18 09:44 Dose: 100 mls Vancomycin HCl 1.25 gm/ Sodium (Chloride) 250 mls @ 166.667 mls/hr IVPB Q24HR@ 1800 [facility] Last Admin: 04/06/18 17:31 Dose: 250 mls Insulin Human Lispro (Humalog) 0 units SC .MILD SLIDING SCALE PRN PRN Reason: Mild Correctional Scale Iron/Minerals/Multivitamins (Theragran M) 1 tab PO DAILY [facility] Last Admin: 04/07/18 09:44 Dose: Not Given Lisinopril (Zestril) 20 mg PO BID [facility] Last Admin: 04/07/18 09:41 Dose: 20 mg Loperamide HCl (Imodium) 2 mg PO PRN PRN PRN Reason: Diarrhea/Loose Stools Loratadine (Claritin) 10 mg PO DAILYPRN PRN PRN Reason: Sinus Symptoms Magnesium Hydroxide (Milk Of Magnesium) 30 ml PO DAILYPRN PRN PRN Reason: Constipation Mineral Oil/White Petrolatum (Eucerin Cream) 0 gm TOP BIDPRN PRN PRN Reason: Dry Skin Miscellaneous Medication (Pharmacy To Dose) 1 each IVPB PRN PRN PRN Reason: Pharmacy to dose Morphine Sulfate (Morphine) 2 mg SLOW IVP Q4H PRN PRN Reason: PAIN 7-10 Last Admin: 04/07/18 06:46 Dose: 2 mg Ondansetron HCl (Zofran) 4 mg IVP Q6H PRN PRN Reason: Nausea/Vomiting Ondansetron HCl (Zofran Odt) 4 mg PO Q6H PRN PRN Reason: Nausea/Vomiting Phenol (Chloraseptic [place] 180 Ml Bot) 0 ml PO PRN PRN PRN Reason: Sore Throat Saccharomyces Boulardii (Florastor) 250 mg PO DAILY [facility] Last Admin: 04/07/18 09:44 Dose: Not Given Senna (Senokot) 2 tab PO HSPRN PRN PRN Reason: Constipation Senna/Docusate Sodium (Senokot S) 1 tab PO BIDPRN PRN PRN Reason: CONSTIPATION Last Admin: 04/07/18 04:39 Dose: 1 tab Sodium Chloride ([place] Nasal [place] 0.65%) 0 ml EA NARE QIDPRN PRN PRN Reason: Nasal Congestion Sodium Chloride (Flush - Normal Saline) 10 ml IVF PRN PRN PRN Reason: Saline Flush Last Admin: 04/07/18 06:46 Dose: 10 ml Tramadol HCl (Ultram) 50 mg PO Q8H PRN PRN Reason: HTN Last Admin: 04/06/18 01:26 Dose: 50 mg
[2018-04-07] MEDS: hydrALAZINE 20 MG/ML VIAL SLOW IVP PRN (13:51)
[2018-04-07 17:17] LABS: Vancomycin, Trough 16.7 ug/mL
[2018-04-07] MEDS: Vancomycin HCl 1.25 GM in Sodium Chloride 0.9% 250 ML 250 ML IVPB SCH (17:55)
[2018-04-07] MEDS: cloNIDine 0.2 MG TAB PO SCH (22:02)
[2018-04-08] MEDS: Piperacillin/Tazobactam 3.375 GM in Sodium Chloride 0.9% 100 ML IVPB SCH ×4 (04:10→22:40)
[2018-04-08] MEDS: Acetaminophen/Codeine 30-300mg Tablet PO SCH ×2 (08:17→20:30)
[2018-04-08] MEDS: Carvedilol 25 MG TAB PO SCH ×2 (08:18→20:30)
[2018-04-08] MEDS: Enoxaparin Sodium 40 MG/0.4 ML SYRINGE SC SCH (08:18)
[2018-04-08] MEDS: Famotidine 20 MG TAB PO SCH ×2 (08:18→20:30)
[2018-04-08] MEDS: Aspirin 81 mg Enteric Coated Tablet PO SCH (08:18)
[2018-04-08] MEDS: ALPRAZolam 0.25 MG TAB PO SCH ×3 (08:18→20:30)
[2018-04-08] MEDS: Multivitamin W/ Minerals 1 TAB PO SCH (08:19)
[2018-04-08] MEDS: Saccharomyces boulardii 250 MG CAP PO SCH (08:19)
[2018-04-08] MEDS: Lisinopril 20 MG TAB PO SCH ×2 (08:19→20:29)
--- NOTE | 2018-04-08 09:39 | DIS ---
DATE OF ADMISSION: 04/01/2018 DATE OF DISCHARGE: 04/08/2018 PRIMARY CARE PHYSICIAN: Dr. Amparo [place]. DIS[facility]GE DISPOSITION[facility] PRIMARY DISCHARGE DIAGNOSIS: Left fourth finger cellulitis with a pressure ulcer complicated by mult idrug resistant infection. SECONDARY DISCHARGE DIAGNOSES: Normocytic normochromic anemia, anxiety and depression, dementia, phy sical deconditioning, gastroesophageal reflux disease, hypertension. PRIMARY PROCEDURE AND OPERATION: PICC line placement. RADIOLOGICAL INVESTIGATION: Hand x-ray on admission showed nonspecific finding. SIGNIFICANT LABORATORY DATA: WBC 6.5, hemoglobin 10.1, platelet 244. Sodium 140, potassium 3.9, BUN 17, creatinine 0.79, calcium 8.6, CRP 3.79. Culture from finger grew Proteus mirabilis, which was m ultidrug resistant. DISCHARGE MEDICATIONS: Tylenol with codeine 1 tablet q.4 hourly p.r.n., clonidine 0.2 mg p.o. q.4 ho urly p.r.n., Tylenol ER one tablet q.6 hourly p.r.n., Ventolin nebulization q.4 hourly p.r.n., Xanax 0.25 mg p.o. t.i.d., aspirin 81 mg p.o. daily, Coreg 25 mg p.o. b.i.d., clomipramine 150 mg p.o. at b edtime, Catapres 0.2 mg p.o. at bedtime, lisinopril 20 mg p.o. b.i.d., multivitamin 1 tablet p.o. giovanni ly, Senokot 1 tablet p.o. b.i.d. p.r.n., tramadol 50 mg q.8 hourly p.r.n., Invanz 1 gram IV daily unt il 05/02/2018, Florastor 250 mg p.o. daily for 1 month. CONTRAINDICATIONS: None. CODE STATUS: DNR. INPATIENT CONSULTANTS: Hand surgeon was following while in hospital. Dr. Gardner was consulted for mu ltidrug resistant infections. TEST RESULTS PENDING ON DISCHARGE: None. ALLERGIES: AMLODIPINE, KEFLEX, HYDROCHLOROTHIAZIDE, IBUPROFEN. DISCHARGE PLAN: Post hospital, the patient will be discharged to [facility] home where the lopez ent will follow up with Dr. Amparo Montana. At [facility], the patient will need wound care as we ll as weekly CBC, CMP, CRP, until patient is on IV antibiotic therapy. The patient will need hand santoyo rgeon follow up as well as ID follow up. 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 The patient was diagnos ed with pressure ulcer. Hand surgeon was consulted while in hospital. The patient was admitted by Irena Camarena. Please see his H&P for more detail. The patient was admitted on 04/02/2018. The patie nt was getting broad spectrum antibiotic therapy with vancomycin and Zosyn. Her wound culture grew P roteus mirabilis, which was multidrug resistant and so we were not able to change oral antibiotic the rapy while in hospital. She was continued to get vancomycin and Zosyn. We consulted Dr. Gardner and bushra lucia also recommended to continue vancomycin and Zosyn. He recommended to change Invanz and IV antibiot ic therapy until 05/02/2018. PICC line is going to be placed today and subsequently with help of our rn case management, we will arrange IV antibiotic therapy at retirement home. If arranged, then this patient is medically stable for discharge. While in hospital, we continued all her previous medicat ion as well as upon discharge, similar medication was continued. Overall, the patient remained stabl e while in hospital. The patient is medically stable for discharge today. The patient is seen and examined at bedside toirena lees. PHYSICAL EXAMINATION: VITAL SIGNS: Currently, temperature 97.9, pulse 60, respiratory rate 16, saturation 93% on room air, blood pressure 180/68, weight 125 pounds. GENERAL: The patient is currently alert, awake, no obvious acute distress. HEAD: Normocephalic, atraumatic. EYES: Pupils round, reactive to light. Extraocular muscle intact. ENT: Oropharynx within normal limits. Moist mucous membranes. No oral lesion, no pharyngeal erythe ma, no exudate. NECK: Supple, no JVD, no thyromegaly, no carotid bruit. LUNGS: Clear to auscultation without any rhonchi. CARDIAC: S1, S2 regular without any significant murmur. ABDOMEN: Soft and benign without any tenderness. EXTREMITIES: Left hand is with a dressing. NEUROLOGIC: Grossly nonfocal examination. PSYCHIATRIC: Baseline normal affect. REVIEW OF SYSTEMS: Reviewed and negative. The patient is medically stable for discharge. Paper work for discharge done. Discharge medication reconciliation done.
--- NOTE | 2018-04-08 10:05 | PDOC.PN ---
- Subjective Encounter Start Date: 04/08/18 Encounter Start Time: 09:45 Patient seen and examined. No new complaints. No overnight events - Objective Resuscitation Status: Resuscitation Status DNR:Do Not Resuscitate MAR Reviewed: Yes Vital Signs & Weight: Vital Signs (12 hours) Temp Pulse Resp BP BP Pulse Ox 04/08/18 08:19 182/68 H 04/08/18 07:29 97.9 F 60 16 182/68 H 93 L Weight Admit Weight 125 lb 9.6 oz Weight 125 lb 9.6 oz I&O: 04/07/18 04/08/18 04/09/18 06:59 06:59 06:59 Intake Total 120 540 Balance 120 540 Result Diagrams: 04/03/18 05:56 04/03/18 05:55 Additional Labs: Accuchecks 04/08/18 04/07/18 04/07/18 06:35 21:34 16:40 POC Glucose 100 118 H 102 04/07/18 11:56 POC Glucose 89 Phys Exam - Physical Examination Constitutional: NAD HEENT: PERRLA, moist MMs, sclera anicteric Neck: no JVD, supple Respiratory: no wheezing, no rales, no rhonchi Cardiovascular: RRR, no significant murmur, no rub Gastrointestinal: soft, non-tender, no distention, positive bowel sounds Musculoskeletal: no edema left hand with drssing Neurological: non-focal Lymphatic: no nodes Psychiatric: normal affect Skin: no rash, normal turgor Dx/Plan (1) Cellulitis of left finger Code(s): L03.012 - CELLULITIS OF LEFT FINGER Status: Acute (2) Anemia, normocytic normochromic Code(s): D64.9 - ANEMIA, UNSPECIFIED Status: Chronic (3) Anxiety and depression Code(s): F41.9 - ANXIETY DISORDER, UNSPECIFIED; F32.9 - MAJOR DEPRESSIVE DISORDER, SINGLE EPISODE, UNSPECIFIED Status: Chronic (4) Dementia Code(s): F03.90 - UNSPECIFIED DEMENTIA WITHOUT BEHAVIORAL DISTURBANCE Status: Chronic Qualifiers: (5) GERD (gastroesophageal reflux disease) Code(s): K21.9 - GASTRO-ESOPHAGEAL REFLUX DISEASE WITHOUT ESOPHAGITIS Status: Chronic Qualifiers: (6) HTN (hypertension) Code(s): I10 - ESSENTIAL (PRIMARY) HYPERTENSION Status: Chronic Qualifiers: - Plan cont current plan of care, continue antibiotics, social group worker * medication reviewed as below * symptomatic treatment * today PICC line * then discharge with iv antibiotic arrangement * see discharge aron. Review of Systems - Review of Systems ENT: negative: Ear Pain, Ear Discharge, Nose Pain, Nose Discharge, Nose Congestion, Mouth Pain, Mouth Swelling, Throat Pain, Throat Swelling, Other Respiratory: negative: Cough, Dry, Shortness of Breath, Hemoptysis, SOB with Excertion, Pleuritic Pain, Sputum, Wheezing Cardiovascular: negative: chest pain, palpitations, orthopnea, paroxysmal nocturnal dyspnea, edema, light headedness, other Gastrointestinal: negative: Nausea, Vomiting, Abdominal Pain, Diarrhea, Constipation, Melena, Hematochezia, Other Genitourinary: negative: Dysuria, Frequency, Incontinence, Hematuria, Retention , Other Musculoskeletal: negative: Neck Pain, Shoulder Pain, Arm Pain, Back Pain, Hand Pain, Leg Pain, Foot Pain, Other Skin: negative: Rash, Lesions, Michael, Bruising, Other - Medications/Allergies Allergies/Adverse Reactions: Allergies Allergy/AdvReac Type Severity Reaction Status Date / Time amlodipine Allergy Verified 01/01/18 11:11 cephalexin Allergy Verified 01/01/18 11:11 hydrochlorothiazide Allergy Verified 01/01/18 11:11 ibuprofen Allergy Verified 01/01/18 11:11 lansoprazole Allergy Verified 01/01/18 11:11 nitrofurantoin Allergy Verified 01/01/18 11:11 [From Macrodantin] Sulfa (Sulfonamide Allergy Verified 01/01/18 11:11 Antibiotics) sulfamethoxazole Allergy Verified 01/01/18 11:11 sulindac Allergy Verified 01/01/18 11:11 trimethoprim Allergy Verified 01/01/18 11:11 Medications: Current Medications Acetaminophen (Tylenol) 650 mg PO Q4H PRN PRN Reason: Headache/Fever or Pain Last Admin: 04/02/18 01:07 Dose: 650 mg Acetaminophen/Codeine Phosphate (Tylenol #3) 1 tab PO Q12HR DEEPAK Last Admin: 04/08/18 08:17 Dose: 1 tab Acetaminophen/Codeine Phosphate (Tylenol #3) 1 tab PO Q4H PRN PRN Reason: Pain Last Admin: 04/06/18 14:19 Dose: 1 tab Al Hydroxide/Mg Hydroxide (Maalox) 15 ml PO Q4H PRN PRN Reason: Heartburn or Indigestion Albuterol Sulfate (Ventolin) 2.5 mg NEB Q4H PRN PRN Reason: Dyspnea/Wheezing/SOB Alprazolam (Xanax) 0.25 mg PO QIDPRN PRN PRN Reason: Anxiety Last Admin: 04/07/18 04:40 Dose: 0.25 mg Alprazolam (Xanax) 0.25 mg PO TID [facility] Last Admin: 04/08/18 08:18 Dose: 0.25 mg Artificial Tears (Tears Naturale) 0 drop EA EYE PRN PRN PRN Reason: Dry Eyes Aspirin (Ecotrin) 81 mg PO QAM [facility] Last Admin: 04/08/18 08:18 Dose: 81 mg Bisacodyl (Dulcolax) 10 mg [place] DAILYPRN PRN PRN Reason: Constipation Carvedilol (Coreg) 25 mg PO BID [facility] Last Admin: 04/08/18 08:18 Dose: 25 mg Clonidine (Catapres) 0.2 mg PO Q4H PRN PRN Reason: Hypertension Last Admin: 04/07/18 09:43 Dose: 0.2 mg Clonidine (Catapres) 0.2 mg PO HS [facility] Last Admin: 04/07/18 22:02 Dose: 0.2 mg Dextrose/Water (Dextrose 50%) 25 gm SLOW IVP PRN PRN PRN Reason: Hypoglycemia Enoxaparin Sodium (Lovenox) 40 mg SC 0900 [facility] Last Admin: 04/08/18 08:18 Dose: 40 mg Famotidine (Pepcid) 20 mg PO BID [facility] Last Admin: 04/08/18 08:18 Dose: 20 mg Glucagon (Glucagon) 1 mg IM PRN PRN PRN Reason: Hypoglycemia Guaifenesin (Robitussin Sf) 200 mg PO Q4H PRN PRN Reason: Cough Hydralazine HCl (Apresoline) 10 mg SLOW IVP Q4H PRN PRN Reason: Systolic BP > 180 Last Admin: 04/07/18 13:51 Dose: 10 mg Dextrose/Water (D5w) 1,000 mls @ 0 mls/hr IV .Q0M PRN PRN Reason: Hypoglycemia Piperacillin Sod/Tazobactam (Sod 3.375 gm/ Sodium Chloride) 100 mls @ 200 mls/ hr IVPB 0400,1000,1600,2200 [facility] Last Admin: 04/08/18 04:10 Dose: 100 mls Vancomycin HCl 1.25 gm/ Sodium (Chloride) 250 mls @ 166.667 mls/hr IVPB Q24HR@ 1800 [facility] Last Admin: 04/07/18 17:55 Dose: 250 mls Insulin Human Lispro (Humalog) 0 units SC .MILD SLIDING SCALE PRN PRN Reason: Mild Correctional Scale Iron/Minerals/Multivitamins (Theragran M) 1 tab PO DAILY [facility] Last Admin: 04/08/18 08:19 Dose: 1 tab Lisinopril (Zestril) 20 mg PO BID [facility] Last Admin: 04/08/18 08:19 Dose: 20 mg Loperamide HCl (Imodium) 2 mg PO PRN PRN PRN Reason: Diarrhea/Loose Stools Loratadine (Claritin) 10 mg PO DAILYPRN PRN PRN Reason: Sinus Symptoms Magnesium Hydroxide (Milk Of Magnesium) 30 ml PO DAILYPRN PRN PRN Reason: Constipation Mineral Oil/White Petrolatum (Eucerin Cream) 0 gm TOP BIDPRN PRN PRN Reason: Dry Skin Miscellaneous Medication (Pharmacy To Dose) 1 each IVPB PRN PRN PRN Reason: Pharmacy to dose Morphine Sulfate (Morphine) 2 mg SLOW IVP Q4H PRN PRN Reason: PAIN 7-10 Last Admin: 04/07/18 17:17 Dose: 2 mg Ondansetron HCl (Zofran) 4 mg IVP Q6H PRN PRN Reason: Nausea/Vomiting Ondansetron HCl (Zofran Odt) 4 mg PO Q6H PRN PRN Reason: Nausea/Vomiting Phenol (Chloraseptic [place] 180 Ml Bot) 0 ml PO PRN PRN PRN Reason: Sore Throat Saccharomyces Boulardii (Florastor) 250 mg PO DAILY [facility] Last Admin: 04/08/18 08:19 Dose: 250 mg Senna (Senokot) 2 tab PO HSPRN PRN PRN Reason: Constipation Senna/Docusate Sodium (Senokot S) 1 tab PO BIDPRN PRN PRN Reason: CONSTIPATION Last Admin: 04/07/18 04:39 Dose: 1 tab Sodium Chloride ([place] Nasal [place] 0.65%) 0 ml EA NARE QIDPRN PRN PRN Reason: Nasal Congestion Sodium Chloride (Flush - Normal Saline) 10 ml IVF PRN PRN PRN Reason: Saline Flush Last Admin: 04/07/18 21:55 Dose: 10 ml Tramadol HCl (Ultram) 50 mg PO Q8H PRN PRN Reason: HTN Last Admin: 04/06/18 01:26 Dose: 50 mg
[2018-04-08] MEDS: hydrALAZINE 20 MG/ML VIAL SLOW IVP PRN (12:28)
--- NOTE | 2018-04-08 12:31 | SPC ---
ULTRASOUND AND FLUOROSCOPIC-GUIDED RIGHT UPPER EXTREMITY PICC LINE PLACEMENT. INDICATION: Left hand infection and need for long-term IV antibiotics. TECHNIQUE: The right upper extremity was prepped and draped in the usual sterile fashion. The patient underwent informed consent with the assistance of the patient's family. Buffered 1% Lidocaine was administere d to the overlying subcutaneous tissue. Under ultrasound guidance, a micropuncture access kit was ut ilized to gain access to the right brachial vein. The guidewire was then advanced to the level of th e IVC and right hepatic vein. A 5 Upper [place] catheter sheath was placed. A dual-lumen PICC line was tri mmed to 40 cm guided over the wire into the sheath. The sheath and wire were removed. The catheter is seen at the level of the SVC. Total fluoroscopic time was 0.4 minutes. Total exposure 1,550 mGy* ^cm2. IMPRESSION: Successful right upper extremity PICC line placement. POS: [facility]
[2018-04-08 14:12] LABS: INR-International Normal Ratio 1.1; PTT 43.1 SEC (22.9-36.1); Prothrombin Time 13.8 SEC (12.0-14.7)
[2018-04-08] MEDS: traMADol HCl 50 MG TAB PO PRN (14:21)
[2018-04-08] MEDS ORDERED: Nystatin Powder 15 GM BOT TOP PRN (15:22)
[2018-04-08] MEDS: Vancomycin HCl 1.25 GM in Sodium Chloride 0.9% 250 ML 250 ML IVPB SCH (18:16)
[2018-04-08 19:19] LABS: Hemoglobin 9.9 g/dL (12.0-16.0)
--- NOTE | 2018-04-08 19:21 | ULT ---
RIGHT UPPER EXTREMITY VENOUS ULTRASOUND WITH 2D IMAGIN04/08/18 HISTORY: Bleeding post PICC line placement. FINDINGS: Valdivia scale, color flow, doppler evaluation, with spectral analysis of the right upper extremity venou s structures is performed with 2D imaging. Flow is demonstrated within both the internal jugular and right subclavian veins. There are linear echogenic structure within the right subclavian vein likely related to patient's kno wn right upper extremity PICC line. Normal flow is present within the right axillary vein on valdivia sca le imaging due to depth. There is flow demonstrated within the right brachial vein. There is also ron ear echogenic structure in the right brachial vein likely related to patient's PICC line. The provide d images do suggest that the PICC line is in the brachial vein and not in brachial artery. There is a rterial flow documented in the right brachial artery as well as flow within the right brachial vein a t the level of the antecubital fossa. The venous structures at the level of the mid arm are not well interrogated secondary to bandages in place. Flow is demonstrated in the right basilic vein as well as in the limited visualized cephalic veins. F low is also demonstrated within the radial and ulnar veins with arterial flow documented in the ulnar and radial arteries on this exam. IMPRESSION: 1. Limited valdivia scale imaging of the axillary vein, but there is normal flow in the axillary vei n as well as normal flow visualized in the right subclavian vein. 2. Venous flow is demonstrated within the right brachial vein. Provided images do suggest that t he PICC line is in the right upper extremity brachial vein. 3. Subcutaneous edema within the upper arm. POS: [facility]
[2018-04-08] MEDS: cloNIDine 0.2 MG TAB PO SCH (20:31)
[2018-04-09] MEDS: ALPRAZolam 0.25 MG TAB PO PRN (00:31)
[2018-04-09] MEDS: cloNIDine 0.2 MG TAB PO PRN (00:46)
[2018-04-09] MEDS: Piperacillin/Tazobactam 3.375 GM in Sodium Chloride 0.9% 100 ML IVPB SCH ×2 (04:45→09:40)
[2018-04-09] MEDS: ALPRAZolam 0.25 MG TAB PO SCH (09:39)
[2018-04-09] MEDS: Acetaminophen/Codeine 30-300mg Tablet PO SCH (09:39)
[2018-04-09] MEDS: Saccharomyces boulardii 250 MG CAP PO SCH (09:40)
[2018-04-09] MEDS: Multivitamin W/ Minerals 1 TAB PO SCH (09:40)
[2018-04-09] MEDS: Famotidine 20 MG TAB PO SCH (09:40)
[2018-04-09] MEDS: Carvedilol 25 MG TAB PO SCH (09:40)
[2018-04-09] MEDS: Lisinopril 20 MG TAB PO SCH (09:40)
--- NOTE | 2018-04-09 10:46 | PDOC.PN ---
- Subjective Encounter Start Date: 04/09/18 Encounter Start Time: 07:10 finally bleeding stopped this morning from picc line site - Objective Resuscitation Status: Resuscitation Status DNR:Do Not Resuscitate MAR Reviewed: Yes Vital Signs & Weight: Vital Signs (12 hours) Temp Pulse Resp BP BP Pulse Ox 04/09/18 09:40 188/80 H 04/09/18 08:00 98.1 F 61 20 143/65 H 94 L 04/09/18 04:00 97.8 F 71 16 153/70 H 93 L 04/09/18 00:46 188/80 H 04/09/18 00:30 97.7 F 67 20 188/80 H 97 Weight Admit Weight 125 lb 9.6 oz Weight 125 lb 9.6 oz I&O: 04/08/18 04/09/18 04/10/18 06:59 06:59 06:59 Intake Total 540 680 240 Balance 540 680 240 Result Diagrams: 04/08/18 19:10 04/03/18 05:55 Additional Labs: Accuchecks 04/09/18 04/08/18 04/08/18 05:18 19:37 16:32 POC Glucose 103 112 H 83 04/08/18 12:17 POC Glucose 93 Radiology Reviewed by me: Yes (us UE) Phys Exam - Physical Examination Constitutional: NAD HEENT: PERRLA, moist MMs, sclera anicteric Neck: no JVD, supple Respiratory: no wheezing, no rales, no rhonchi Cardiovascular: RRR, no significant murmur, no rub Gastrointestinal: soft, non-tender, no distention, positive bowel sounds Musculoskeletal: no edema, pulses present picc line site seen and now no bleeding Dx/Plan (1) Cellulitis of left finger Code(s): L03.012 - CELLULITIS OF LEFT FINGER Status: Acute (2) Anemia, normocytic normochromic Code(s): D64.9 - ANEMIA, UNSPECIFIED Status: Chronic (3) Anxiety and depression Code(s): F41.9 - ANXIETY DISORDER, UNSPECIFIED; F32.9 - MAJOR DEPRESSIVE DISORDER, SINGLE EPISODE, UNSPECIFIED Status: Chronic (4) Dementia Code(s): F03.90 - UNSPECIFIED DEMENTIA WITHOUT BEHAVIORAL DISTURBANCE Status: Chronic Qualifiers: (5) GERD (gastroesophageal reflux disease) Code(s): K21.9 - GASTRO-ESOPHAGEAL REFLUX DISEASE WITHOUT ESOPHAGITIS Status: Chronic Qualifiers: (6) HTN (hypertension) Code(s): I10 - ESSENTIAL (PRIMARY) HYPERTENSION Status: Chronic Qualifiers: - Plan cont current plan of care, continue antibiotics, psychosocial rehabilitation counselor * medication reviewed as below * symptomatic treatment * see discharge summery * will discharge this afternoon if no further bleed. Review of Systems - Review of Systems Eyes: negative: Pain, Vision Change, Conjunctivae Inflammation, Eyelid Inflammation, Redness, Other ENT: negative: Ear Pain, Ear Discharge, Nose Pain, Nose Discharge, Nose Congestion, Mouth Pain, Mouth Swelling, Throat Pain, Throat Swelling, Other Respiratory: negative: Cough, Dry, Shortness of Breath, Hemoptysis, SOB with Excertion, Pleuritic Pain, Sputum, Wheezing Cardiovascular: negative: chest pain, palpitations, orthopnea, paroxysmal nocturnal dyspnea, edema, light headedness, other Gastrointestinal: negative: Nausea, Vomiting, Abdominal Pain, Diarrhea, Constipation, Melena, Hematochezia, Other Genitourinary: negative: Dysuria, Frequency, Incontinence, Hematuria, Retention , Other Musculoskeletal: negative: Neck Pain, Shoulder Pain, Arm Pain, Back Pain, Hand Pain, Leg Pain, Foot Pain, Other - Medications/Allergies Allergies/Adverse Reactions: Allergies Allergy/AdvReac Type Severity Reaction Status Date / Time amlodipine Allergy Verified 01/01/18 11:11 cephalexin Allergy Verified 01/01/18 11:11 hydrochlorothiazide Allergy Verified 01/01/18 11:11 ibuprofen Allergy Verified 01/01/18 11:11 lansoprazole Allergy Verified 01/01/18 11:11 nitrofurantoin Allergy Verified 01/01/18 11:11 [From Macrodantin] Sulfa (Sulfonamide Allergy Verified 01/01/18 11:11 Antibiotics) sulfamethoxazole Allergy Verified 01/01/18 11:11 sulindac Allergy Verified 01/01/18 11:11 trimethoprim Allergy Verified 01/01/18 11:11 Medications: Current Medications Acetaminophen (Tylenol) 650 mg PO Q4H PRN PRN Reason: Headache/Fever or Pain Last Admin: 04/02/18 01:07 Dose: 650 mg Acetaminophen/Codeine Phosphate (Tylenol #3) 1 tab PO Q12HR DEEPAK Last Admin: 04/09/18 09:39 Dose: 1 tab Acetaminophen/Codeine Phosphate (Tylenol #3) 1 tab PO Q4H PRN PRN Reason: Pain Last Admin: 04/06/18 14:19 Dose: 1 tab Al Hydroxide/Mg Hydroxide (Maalox) 15 ml PO Q4H PRN PRN Reason: Heartburn or Indigestion Albuterol Sulfate (Ventolin) 2.5 mg NEB Q4H PRN PRN Reason: Dyspnea/Wheezing/SOB Alprazolam (Xanax) 0.25 mg PO QIDPRN PRN PRN Reason: Anxiety Last Admin: 04/09/18 00:31 Dose: 0.25 mg Alprazolam (Xanax) 0.25 mg PO TID [facility] Last Admin: 04/09/18 09:39 Dose: 0.25 mg Artificial Tears (Tears Naturale) 0 drop EA EYE PRN PRN PRN Reason: Dry Eyes Bisacodyl (Dulcolax) 10 mg PA DAILYPRN PRN PRN Reason: Constipation Carvedilol (Coreg) 25 mg PO BID [facility] Last Admin: 04/09/18 09:40 Dose: 25 mg Clonidine (Catapres) 0.2 mg PO Q4H PRN PRN Reason: Hypertension Last Admin: 04/09/18 00:46 Dose: 0.2 mg Clonidine (Catapres) 0.2 mg PO HS [facility] Last Admin: 04/08/18 20:31 Dose: Not Given Dextrose/Water (Dextrose 50%) 25 gm SLOW IVP PRN PRN PRN Reason: Hypoglycemia Famotidine (Pepcid) 20 mg PO BID [facility] Last Admin: 04/09/18 09:40 Dose: 20 mg Glucagon (Glucagon) 1 mg IM PRN PRN PRN Reason: Hypoglycemia Guaifenesin (Robitussin Sf) 200 mg PO Q4H PRN PRN Reason: Cough Hydralazine HCl (Apresoline) 10 mg SLOW IVP Q4H PRN PRN Reason: Systolic BP > 180 Last Admin: 04/08/18 12:28 Dose: 10 mg Dextrose/Water (D5w) 1,000 mls @ 0 mls/hr IV .Q0M PRN PRN Reason: Hypoglycemia Piperacillin Sod/Tazobactam (Sod 3.375 gm/ Sodium Chloride) 100 mls @ 200 mls/ hr IVPB 0400,1000,1600,2200 [facility] Last Admin: 04/09/18 09:40 Dose: 100 mls Vancomycin HCl 1.25 gm/ Sodium (Chloride) 250 mls @ 166.667 mls/hr IVPB Q24HR@ 1800 [facility] Last Admin: 04/08/18 18:16 Dose: 250 mls Insulin Human Lispro (Humalog) 0 units SC .MILD SLIDING SCALE PRN PRN Reason: Mild Correctional Scale Iron/Minerals/Multivitamins (Theragran M) 1 tab PO DAILY [facility] Last Admin: 04/09/18 09:40 Dose: 1 tab Lisinopril (Zestril) 20 mg PO BID [facility] Last Admin: 04/09/18 09:40 Dose: 20 mg Loperamide HCl (Imodium) 2 mg PO PRN PRN PRN Reason: Diarrhea/Loose Stools Loratadine (Claritin) 10 mg PO DAILYPRN PRN PRN Reason: Sinus Symptoms Magnesium Hydroxide (Milk Of Magnesium) 30 ml PO DAILYPRN PRN PRN Reason: Constipation Mineral Oil/White Petrolatum (Eucerin Cream) 0 gm TOP BIDPRN PRN PRN Reason: Dry Skin Miscellaneous Medication (Pharmacy To Dose) 1 each IVPB PRN PRN PRN Reason: Pharmacy to dose Morphine Sulfate (Morphine) 2 mg SLOW IVP Q4H PRN PRN Reason: PAIN 7-10 Last Admin: 04/08/18 23:39 Dose: 2 mg Nystatin (Mycostatin Powder) 0 gm TOP BIDPRN PRN PRN Reason: . Last Admin: 04/08/18 18:20 Dose: 1 applic Ondansetron HCl (Zofran) 4 mg IVP Q6H PRN PRN Reason: Nausea/Vomiting Ondansetron HCl (Zofran Odt) 4 mg PO Q6H PRN PRN Reason: Nausea/Vomiting Phenol (Chloraseptic [place] 180 Ml Bot) 0 ml PO PRN PRN PRN Reason: Sore Throat Saccharomyces Boulardii (Florastor) 250 mg PO DAILY [facility] Last Admin: 04/09/18 09:40 Dose: 250 mg Senna (Senokot) 2 tab PO HSPRN PRN PRN Reason: Constipation Senna/Docusate Sodium (Senokot S) 1 tab PO BIDPRN PRN PRN Reason: CONSTIPATION Last Admin: 04/07/18 04:39 Dose: 1 tab Sodium Chloride ([place] Nasal [place] 0.65%) 0 ml EA NARE QIDPRN PRN PRN Reason: Nasal Congestion Sodium Chloride (Flush - Normal Saline) 10 ml IVF PRN PRN PRN Reason: Saline Flush Last Admin: 04/09/18 09:41 Dose: 10 ml Tramadol HCl (Ultram) 50 mg PO Q8H PRN PRN Reason: HTN Last Admin: 04/08/18 14:21 Dose: 50 mg
[2018-04-09 11:37] VITALS: BP 152/68; TEMP 97.8
--- NOTE | 2018-04-09 12:24 | ADD-DIS ---
ADDENDUM This patient had PICC line yesterday and subsequently the patient was bleeding heavily at PICC line s ite. There was no obvious reason, but the patient was on aspirin and Lovenox for DVT prophylaxis and that may be the reason for her bleeding. Ultrasound upper extremity was negative for any acute proc ess. During night time, patient had pressure bandage and this morning when we removed pressure east ge, she did not have any further bleeding. This patient will get IV Invanz at the halfway and t hat has been arranged with the skilled nursing case manager. Today, the patient is medically stable for discharge to intermediate home. The patient is seen and examined at bedside today. Please see my progress note from today for furthe r detail.
--- NOTE | 2018-04-09 15:28 | PQF ---
CLINICAL DOCUMENTATION IMPROVEMENT CLARIFICATION FORM: ICD-10 Updated PLEASE DO AN ADDENDUM TO THE PROGRESS NOTE WITH ANY DOCUMENTATION UPDATES OR ADDITIONS AND CARRY THROUGH TO DC SUMMARY. THANK YOU. DATE: 04/09/18 ATTN: Dr. [place] Please exercise your independent, professional judgment in responding to the clarification form. 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 [ ] Weakness (please specify anatomical area) Specify: [ ] Non dominant side [ ] Dominant side [ ] Generalized weakness. 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 TREATMENT: NURSING: FEEDING ASSESSMENT 04/02: MAXIMUM ASSISTANCE. NURSING: FEEDING ASSESSMENT 04/04 0900: TOTAL ASSISTANCE NURSING ASSESSMENT 04/08: GI: BRIEF IN PLACE. C/D/I. REQUIRES TOTAL ASSIST W/ EATING. Thank you, Jayne (This form is maintained as a part of the permanent medical record) 2015 [employer]. All Rights Reserved Jayne Ojeda RN, BSN [email or web address] Office: [phone] [facility]
--- NOTE | 2018-04-10 11:08 | PQF ---
VIVEK ALMEIDA ABDIER [id number] CLINICAL DOCUMENTATION CLARIFICATION FORM: POST DISCHARGE Addendum to original discharge summary date: ____ Late entry note date: __ DATE: 04/10/18 ATTN: Please exercise your independent, professional judgment in responding to the clarification form. Clinical indicators are provided on the bottom of this form for your review Please check appropriate box(s): [ ] Cellulitis (Condition) is a complication of current/recent surgery [ ] Cellulitis (Condition) is not a complication of current/recent surgery [ ] Other diagnosis [ ] Unable to determine In addition, please specify: Present on Admission (POA): [ ] Yes [ ] No [ ] Unable to determine CLINICAL INDICATORS - SIGNS / SYMPTOMS / LABS CT / x-ray results Altered vitals Supporting labs Infection RISK FACTORS Recent surgery TREATMENT: Antibiotics IV Fluids MTDD
== END 2018-04-09 14:58 | DRG 602 ==
LOC: ERS 15:16 → ONC 23:05
PROVIDERS: ADMIT Hospitalist; ATTEND Hospitalist
PROC: 02HV33Z Insertion of Infusion Device into Superior Vena Cava, Percutaneous Approach (ICD-10-PCS; principal; 2018-04-08)
PROC: B518YZA Fluoroscopy of Superior Vena Cava using Other Contrast, Guidance (ICD-10-PCS; 2018-04-08)
DX: L03.012 Cellulitis of left finger (principal); R53.2 Functional quadriplegia; M86.9 Osteomyelitis, unspecified; F03.90 Unspecified dementia, unspecified severity, without behavioral disturbance, psychotic disturbance, mood disturbance, and anxiety; L89.899 Pressure ulcer of other site, unspecified stage; E78.5 Hyperlipidemia, unspecified; I10 Essential (primary) hypertension; D64.9 Anemia, unspecified; K21.9 Gastro-esophageal reflux disease without esophagitis; Z87.440 Personal history of urinary (tract) infections; Z88.2 Allergy status to sulfonamides; Z88.6 Allergy status to analgesic agent; Z88.8 Allergy status to other drugs, medicaments and biological substances; Z79.899 Other long term (current) drug therapy; Z79.82 Long term (current) use of aspirin; F41.9 Anxiety disorder, unspecified; Z66 Do not resuscitate; Z16.24 Resistance to multiple antibiotics; B96.4 Proteus (mirabilis) (morganii) as the cause of diseases classified elsewhere
CPT/HCPCS: 36415; 36416; 36430; 36569; 80048; 80053; 80202; 83605; 85018; 85025; 85610; 85652; 85730; 86140; 86850; 86900; 86901; 87070; 87077; 87186; 87205; 96365; 96375; A4216; C1751; J0360; J1644; J1650; J2270; J2543; J3370; J7050; P9059